=== PATIENT | male | born 1940 | race Caucasian/White ===

== ENCOUNTER 2018-08-11 00:15 | Inpatient (IN) ==
[2018-08-11 05:52] LABS: Basophils % 0.3 %; Eosinophils % 0.1 %; Hematocrit 45.4 % (37.5-50.1); Immature Granulocytes % 0.5 % (0-4); Lymphocytes # 0.8 K/mcL (0.6-4.6); Lymphocytes % 5.2 %; Mean Corpuscular Hemoglobin 27.3 pg (28.0-33.3); Mean Corpuscular Volume 82.7 fL (83.0-100.0); Mean Platelet Volume 9.6 fL (9.4-12.4); Monocytes # 0.9 K/mcL (0.0-1.3); Platelet Count 233 K/mcL (140-400); Red Blood Count 5.49 M/mcL (4.19-5.50); Red Cell Distribution Width 14.6 % (11.5-14.5); Segmented Neutrophils % 87.9 %; White Blood Count 14.7 K/mcL (4.3-11.1)
[2018-08-11 05:54] LABS: INR 1.1; Neutrophils # 12.9 K/mcL (1.6-8.9); Prothrombin Time 12.7 Seconds (9.4-12.1)
[2018-08-11 05:56] LABS: Activated Partial Thrombo Time 29.7 Seconds (26.0-36.0)
[2018-08-11 06:05] LABS: BUN/Creatinine Ratio 20 (6-26); Blood Urea Nitrogen 25 mg/dL (8-23); Carbon Dioxide 22 mEq/L (23-29); Chloride 100 mEq/L (98-107); Glucose 129 mg/dL (70-105); Osmolality,Calculated 282 (280-300); Sodium 133 mEq/L (136-145); eGFR For African Americans > 60 (> 60); eGFR For Non-African Americans 57 (> 60)
[2018-08-11] MEDS: Aspirin 81 MG TAB.CHEW PO SCH (08:57)
[2018-08-11] MEDS: Cholecalciferol (D-3) 1,000 UNIT (25MCG) TABLET PO SCH (08:57)
[2018-08-11] MEDS: *HR* Enoxaparin 40 MG/0.4 ML SYRINGE SQ SCH (10:08)
--- NOTE | 2018-08-11 11:08 | Internal Med History&Physical ---
Date of Encounter: 08/11/18 Time of Encounter: 10:59 Assessment and Plan (1) Acute right MCA stroke Current visit: Yes Status: Acute Patient continues to show effects of right CVA with left arm plegia and left leg paresis. Patient also showing severe left-sided neglect with questionable visual cut on the left eye. Patient's neurological exam somewhat limited, due to patient's dementia and being hard of hearing. Patient able to follow simple commands and noted to respond better to visual examples, which brings him to receptive aphasia versus hard of hearing. Patient participated in physical therapy and progressing well. Vital signs stable. We will continue with current plan of care and monitor closely. We will have speech therapy evaluate (2) Chronic kidney disease Current visit: Yes Status: Chronic No acute issues. Patient's most recent creatinine is at 1.25 with a when necessary of 25. We will continue patient on current medications. Qualifiers: Chronic kidney disease stage: unspecified stage Qualified Code(s): N18.9 - Chronic kidney disease, unspecified (3) Dysphagia Current visit: Yes Status: Acute Patient's speech appears to have cleared when exam is compared to previous exam from medical records from hospital. Patient being followed by speech therapy. We will continue with current plan of care Qualifiers: Dysphagia type: unspecified Qualified Code(s): R13.10 - Dysphagia, unspecified (4) Hypertension Current visit: No Status: Chronic Vital signs stable. We will continue with current medications Qualifiers: Hypertension type: essential hypertension Qualified Code(s): I10 - Essential (primary) hypertension (5) Dementia Current visit: No Status: Chronic Currently no issues or reported behaviors. Patient is interacting with staff and therapy well. Patient with difficulty following complex directions. We will continue with current plan of care. Qualifiers: Dementia type: unspecified type Dementia behavioral disturbance: with behavioral disturbance Qualified Code(s): F03.91 - Unspecified dementia with behavioral disturbance Internal Medicine - H&P: HPI Chief complaint: right MCA CVA Admitted From: Hospital to Hospital Transfer Plans for Post Hospital Care: Home History of present illness: Mr. Golden is a 77 year old male, who was transferred here from an [facility] hospital where he was treated for a right MCA infarct. Patient has experienced left sided weakness with LUE plegia and LLE paresis. Patient has also been experiencing left sided neglect and dysphasia. Patient also has very poor hearing, which with his dementia has limited his interview. Patient has been answering simple questions with yes/no answers. Information has been gathered from his medical records and his interview. Patient has a Hx of HTN, dementia and major depression. He has been transferred here for further rehab due to his paresis and generalized weakness. Past Med Surg Social Fam HX - Past Medical History Medical history: dementia, GERD, hypertension, TIA, other Additional medical history: Abdominal Aortic Aneurysm Psychiatric history: anxiety, depression - Past Surgical History Surgical History: appendectomy, cholecystectomy, colectomy, herniorrhaphy, orthopedic, other, other Additional surgical history: Left Ankle Fusion - Social History Smoking Status: Never smoker Smokeless Tobacco Status: No Alcohol use: none Drug use: none - Family History Daughter Hx Family Cardiac Disorders: Yes Internal Medicine - H&P: Meds Aspirin 81 mg PO DAILY 04/02/16 [History] Cholecalciferol (D-3) [Vitamin D] 5,000 unit PO DAILY 04/02/16 [History] Folic Acid 0.8 mg PO DAILY 04/02/16 [History] Sertraline [Zoloft] 50 mg PO DAILY 04/02/16 [History] Memantine [Namenda] 10 mg PO DAILY 05/23/17 [History] Lisinopril [Zestril] 20 mg PO DAILY #30 tablet 05/25/17 [Rx] amLODIPine [Norvasc] 10 mg PO DAILY #60 tablet 05/25/17 [Rx] Allergy/AdvReac Type Severity Reaction Status Date / Time No Known Allergies Allergy Verified 08/11/18 03:37 All Systems PM: A 10-system review of systems was performed and is negative for pertinent findings except as documented above in the HPI. - Constitutional Constitutional: as per HPI, no chills, no fever(s), no night sweats - EENT Eyes: as per HPI, no change in vision, no discharge, no pain, no photophobia Ears: as per HPI, no ear discharge, no ear pain, no tinnitus Nose, mouth and throat: as per HPI, no dysphagia, no nasal discharge, no neck p ain, no sore throat - Breasts Breasts: as per HPI - Cardiovascular Cardiovascular ROS IM: as per HPI, no chest pain, no diaphoresis, no dyspnea, no lightheadedness, no palpitations, no syncope - Respiratory Respiratory: as per HPI, no cough, no dyspnea, no wheezing, no excessive phlegm production - Gastrointestinal Gastrointestinal: as per HPI, no abdominal pain, no diarrhea, no hematemesis, no hematochezia, no melena, no nausea, no vomiting - Genitourinary Genitourinary ROS male: as per HPI - Musculoskeletal Musculoskeletal ROS IM: as per HPI, no numbness, no tingling - Integumentary Integumentary IM: as per HPI, no rash, no unusual bruising - Neurological Neurological ROS: as per HPI, no confusion, no convulsions, no focal weakness, no numbness, no tingling, no tremor(s) - Psychiatric Psychiatric: as per HPI - Hematologic/Lymphatic Hematologic/Lymphatic: no easy bruising - Constitutional Vitals: Temp Pulse Resp BP Pulse Ox 98.5 F 88 14 123/80 95 08/11/18 07:36 08/11/18 09:44 08/11/18 09:44 08/11/18 09:44 08/11/18 09:44 General appearance: Present: A&O X 3 - Head Head exam: Present: atraumatic, normocephalic - Eye Eye exam: Present: PERRL, conjuntiva pink, sclera anicteric Pupils: Present: PERRL - Neck Neck exam general surgery: Present: supple, trachea midline. Absent: lymphadenopathy - Respiratory Respiratory exam: Present: decreased breath sounds, CTAB. Absent: accessory muscle use, rales, rhonchi, wheezes - Cardiovascular Cardiovascular exam: Present: RRR, +S1, +S2. Absent: diastolic murmur, gallop, rubs, systolic murmur - GI/Abdominal GI/Abdominal exam: Present: normal bowel sounds, soft, no peritoneal signs. Absent: distended, tenderness - Extremities Exam Extremities exam: Present: warm, radial pulses palpable and symmetrical. Absent: calf tenderness, cyanotic, pedal edema - Neurological Exam Neurological exam: Present: CN II-XII intact, oriented X3, facial droop, speech deficit. Absent: pronater drift Additional comments: Patient continues with left upper extremity plegia and left lower extremity weakness with a muscle strength at 4/5. Difficult to assess patient due to him being very hard of hearing and with his dementia he shows poor effort on exam. Slight left facial droop. Patient has been answering simple questions with yes/no answers, during which his speech is clear. Noted severe left neglect with questionable visual acuity and possible visual cut with left eye. - Skin Skin exam: Present: dry, intact Internal Med - H&P Results - Labs CBC & Chem 7: 08/11/18 05:35 08/11/18 05:35 Labs: Short CBC 08/11/18 Range/Units 05:35 WBC 14.7 H (4.3-11.1) K/mcL Hgb 15.0 (12.9-16.9) g/dL Hct 45.4 (37.5-50.1) % Plt Count 233 (140-400) K/mcL Neutrophils # 12.9 H (1.6-8.9) K/mcL BMP 08/11/18 05:35 Sodium 133 L Potassium 4.0 Chloride 100 Carbon Dioxide 22 L BUN 25 H Creatinine 1.23 Glucose 129 H Calcium 9.0
[2018-08-12] MEDS: *HR* Enoxaparin 40 MG/0.4 ML SYRINGE SQ SCH (05:27)
[2018-08-12] MEDS: Cholecalciferol (D-3) 1,000 UNIT (25MCG) TABLET PO SCH (09:41)
[2018-08-12] MEDS: Aspirin 81 MG TAB.CHEW PO SCH (09:41)
--- NOTE | 2018-08-12 15:41 | Internal Med Progress Note ---
Date of Encounter: 08/12/18 Time of Encounter: 15:38 - Assessment and plan (1) Hypertension Current Visit: Yes Status: Chronic Assessment and plan: Controlled with current medication. Monitor blood pressure. Qualifiers: Hypertension type: essential hypertension Qualified Code(s): I10 - Essential (primary) hypertension (2) Dementia Current Visit: Yes Status: Chronic Assessment and plan: Progressive disease. Continue supportive care. Increased risk for follows, dehydration, malnutrition, skin breakdown and pneumonia Qualifiers: Dementia type: unspecified type Dementia behavioral disturbance: with behavioral disturbance Qualified Code(s): F03.91 - Unspecified dementia with behavioral disturbance (3) Acute right MCA stroke Current Visit: Yes Status: Acute Assessment and plan: Continue PT and OT. Will follow progress. No new neurological deficits at this time. Is very lethargic today. Did participate with therapy this morning. Follow up with neurology as scheduled. Has left hemiparesis, visual cut, dysphagia and agnosia, and receptive aphasia. (4) Chronic kidney disease Current Visit: Yes Status: Chronic Assessment and plan: Stable. Follow labs. Avoid nephrotoxic agents. Qualifiers: Chronic kidney disease stage: unspecified stage Qualified Code(s): N18.9 - Chronic kidney disease, unspecified (5) Dysphagia Current Visit: Yes Status: Acute Assessment and plan: Continue mechanical altered diet with thin liquids. Up for meals with supervision. Monitor for pocketing and left cheek. Encourage to chew on right side. Oral care after all meals. Continue speech therapy. Will follow progress. Qualifiers: Dysphagia type: unspecified Qualified Code(s): R13.10 - Dysphagia, unspecified - Time Spent With Patient less than 15 minutes - Constitutional Vitals: Temp Pulse Resp BP Pulse Ox 97.8 F 70 14 151/79 97 08/12/18 06:00 08/12/18 06:00 08/12/18 06:00 08/12/18 06:00 08/12/18 06:00 General appearance: Present: cooperative, A&O X 3, no acute distress, answers questions appropriately Exam: left facial droop, [place], lethargic. - Head Head exam: Present: atraumatic, normocephalic - Eye Eye exam: Present: PERRL, conjuntiva pink, sclera anicteric Pupils: Present: PERRL - Neck Neck exam general surgery: Present: supple, trachea midline. Absent: lymphadenopathy - Respiratory Respiratory exam: Present: CTAB. Absent: accessory muscle use, rales, rhonchi, wheezes - Cardiovascular Cardiovascular exam: Present: RRR, +S1, +S2. Absent: diastolic murmur, gallop, rubs, systolic murmur Additional comments: + murmur 3/6 - GI/Abdominal GI/Abdominal exam: Present: normal bowel sounds, soft, no peritoneal signs. Absent: distended, tenderness - Extremities Exam Extremities exam: Present: warm, radial pulses palpable and symmetrical. Absent: calf tenderness, cyanotic, pedal edema Additional comments: left sided hemiplegia - Neurological Exam Neurological exam: Present: CN II-XII intact, oriented X3, no focal deficits. Absent: pronater drift, facial droop, speech deficit - Skin Skin exam: Present: dry, intact Internal Medicine: Result - Labs CBC & Chem 7: 08/11/18 05:35 08/11/18 05:35 - ABG Interpretation ABG results: PT/INR, D-dimer PT 12.7 Seconds (9.4-12.1) H 08/11/18 05:35 Consult Discharge Plan - Plan Referrals: Margo Oliveira, ORDER BUILDER LOADER [Primary Care Provider] -
[2018-08-12 17:21] LABS: Bilirubin,Urine Moderate (Negative); Blood,Urine Trace-lysed (Negative); Clarity,Urine Clear (Clear); Color,Urine Amber (Yellow); Glucose,Urine (UA) 100 mg/dL (Normal); Ketones,Urine 15 mg/dL (Negative); Leukocyte Esterase,Urine Negative (Negative); Nitrite,Urine Negative (Negative); Protein,Urine 30 mg/dL (Neg-Trace); Specific Gravity,Urine >= 1.030 (1.010-1.025)
[2018-08-12 17:26] LABS: Mucus,Urine Few (Few)
[2018-08-12 17:27] LABS: Amorphous Sediment,Urine Few (Few); Bacteria,Urine Few per hpf (None-Few); Squamous Epithelial Cell,Urine Few per lpf (None-Few); WBC,Urine 0-3 per hpf (0-3)
[2018-08-12] MEDS: Acetaminophen 325 MG TABLET PO PRN (23:18)
[2018-08-13] MEDS: *HR* Enoxaparin 40 MG/0.4 ML SYRINGE SQ SCH (05:08)
[2018-08-13] MEDS: Cholecalciferol (D-3) 1,000 UNIT (25MCG) TABLET PO SCH (09:29)
[2018-08-13] MEDS: Aspirin 81 MG TAB.CHEW PO SCH (09:29)
--- NOTE | 2018-08-13 10:15 | Internal Med Progress Note ---
Date of Encounter: 08/13/18 Time of Encounter: 09:15 - Assessment and plan (1) Acute right MCA stroke Current Visit: Yes Status: Acute Assessment and plan: Therapy persists and we will continue as planned. Patient seems to be doing better as he is more alert than before. Will follow. (2) Dementia Current Visit: Yes Status: Chronic Assessment and plan: It is my suspicion that this is worse than previously reported by family. This could be related to post stroke depression and/or fatigue from history. Qualifiers: Dementia type: unspecified type Dementia behavioral disturbance: with behavioral disturbance Qualified Code(s): F03.91 - Unspecified dementia with behavioral disturbance (3) Hypertension Current Visit: Yes Status: Chronic Assessment and plan: Clinically stable. Qualifiers: Hypertension type: essential hypertension Qualified Code(s): I10 - Essential (primary) hypertension (4) SIMONA (acute kidney injury) Current Visit: No Status: Acute (5) Acute on chronic renal failure Current Visit: No Status: Acute Assessment and plan: Apparently stable. Today's lab is pending at the time of this dictation. Qualifiers: Acute renal failure type: unspecified Chronic kidney disease stage: stage 2 (mild) Qualified Code(s): N17.9 - Acute kidney failure, unspecified; N18.2 - Chronic kidney disease, stage 2 (mild); N18.2 - Chronic kidney disease, stage 2 (mild) (6) Dysphagia Current Visit: Yes Status: Acute Assessment and plan: Speech therapy evaluating and managing. Apparently can tolerate thin liquids. Still noted to be "pocketing" yesterday. Qualifiers: Dysphagia type: unspecified Qualified Code(s): R13.10 - Dysphagia, unspecified (7) MDD (major depressive disorder) Current Visit: No Status: Acute Assessment and plan: Uncertain as to whether this is worsened by his stroke. Will follow. Qualifiers: Major depression recurrence: recurrent Active/Remission status: currently active Major depression episode severity: unspecified Qualified Code(s): F33.9 - Major depressive disorder, recurrent, unspecified - Subjective Interval history: Patient is much more alert and without complaints. He states that he moved his bowels. He still has hearing issues and issues of recall that suggest dementia. Patient has no complaint of chest discomfort, dyspnea, orthopnea, palpitations, nausea or vomiting, constipation or diarrhea, other changes in bowel habits, difficulty with urination, rash or itching, or other new complaints, except as mentioned above. Review of systems is otherwise negative. I discussed management of her care with nursing staff. - Constitutional Vitals: Temp Pulse Resp BP Pulse Ox 97.8 F 68 14 130/84 94 08/13/18 07:00 08/13/18 07:00 08/13/18 07:00 08/13/18 07:00 08/13/18 07:00 Exam: Examination: (Except as mentioned above): General: In no apparent distress. Alert and oriented 3. Nondiaphoretic. Head: Atraumatic and normocephalic. Respiratory: No use of accessory muscles. Lungs are clear throughout. Normal airflow. Cardiovascular: Regular rate and rhythm without murmur appreciated. Abdomen: Bowel sounds are normal. No hepatosplenomegaly mass or tenderness appreciated. Obese and therefore difficult to palpate deeply. Extremities: No cyanosis clubbing or edema. Skin: Warm and non-diaphoretic with no new lesions noted. Neurological: Patient with marked left chance-neglect. This includes left visual field cut. Left upper extremity weakness is 3/5. Left lower extremity weaknesses 4 minus/5. Internal Medicine: Result - Labs CBC & Chem 7: 08/11/18 05:35 08/11/18 05:35 Labs: Urine 08/12/18 Range/Units Unknown Urine Color [place] A (Yellow) Urine Clarity Clear (Clear) Urine pH 5.0 (5.0-8.0) pH Units Ur Specific [place] >= 1.030 H (1.010-1.025) Urine Protein 30 H (Neg-Trace) mg/dL Urine Glucose (UA) 100 H (Normal) mg/dL - ABG Interpretation ABG results: PT/INR, D-dimer PT 12.7 Seconds (9.4-12.1) H 08/11/18 05:35 Consult Discharge Plan - Plan Referrals: Margo Oliveira, PRODUCTION ENGINEER [Primary Care Provider] -
[2018-08-13 11:49] LABS: Basophils # 0.1 K/mcL (0.0-0.2); Basophils % 0.7 %; Eosinophils # 0.2 K/mcL (0.0-0.6); Eosinophils % 2.3 %; Hematocrit 44.5 % (37.5-50.1); Hemoglobin 14.5 g/dL (12.9-16.9); Immature Granulocytes % 0.5 % (0-4); Lymphocytes # 0.9 K/mcL (0.6-4.6); Lymphocytes % 10.2 %; Mean Corpuscular HGB Conc 32.6 g/dL (31.6-35.5); Mean Corpuscular Hemoglobin 27.5 pg (28.0-33.3); Mean Corpuscular Volume 84.4 fL (83.0-100.0); Mean Platelet Volume 9.9 fL (9.4-12.4); Monocytes # 0.7 K/mcL (0.0-1.3); Neutrophils # 6.5 K/mcL (1.6-8.9); Platelet Count 209 K/mcL (140-400); Red Blood Count 5.27 M/mcL (4.19-5.50); Red Cell Distribution Width 14.8 % (11.5-14.5); Segmented Neutrophils % 78.3 %; White Blood Count 8.4 K/mcL (4.3-11.1)
[2018-08-13] MEDS: 0.9 % Sodium Chloride 1,000 ML IVC SCH (12:38)
--- NOTE | 2018-08-13 13:30 | Event Note ---
Date of Encounter: 08/13/18 Time of Encounter: 13:25 Patient with c/o chest pain following PT session. Patient with minimal verbal response during questions and appears drowsy, as he is easily fatiqued during therapy. Upon questioning, he states that his pain has resolved. Family present and states that he has had episodes of similar chest pain at home, during which his pain is present for only a short time and resolves. Lungs are CTA. HR is reg at 80"s. Loud systolic murmur heard. VS obtained show a SBP 95. EKG shows no eschemic changes. Will start patient on IVF for gentle hydration. Will obtain serial troponins. d/w DR. Valdez.
[2018-08-13 13:34] LABS: Alanine Aminotransferase 25 Units/L (7-52); Albumin 3.7 g/dL (3.5-5.7); Albumin/Globulin Ratio 1.1 (1.1-2.2); Alkaline Phosphatase 78 Units/L (34-104); Aspartate Amino Transferase 33 Units/L (13-39); BUN/Creatinine Ratio 25 (6-26); Bilirubin,Total 2.4 mg/dL (0.3-1.0); Blood Urea Nitrogen 32 mg/dL (8-23); Calcium 9.3 mg/dL (8.6-10.3); Carbon Dioxide 14 mEq/L (23-29); Chloride 101 mEq/L (98-107); Globulin 3.3 g/dL (2.4-3.5); Glucose 131 mg/dL (70-105); Osmolality,Calculated 285 (280-300); Sodium 133 mEq/L (136-145); eGFR For African Americans > 60 (> 60); eGFR For Non-African Americans 55 (> 60)
--- NOTE | 2018-08-13 15:47 | Electrocardiograph Report ---
[address] [address] Test Date: 2018-08-13 Pat Name: Sree Golden Department: 2001 Room: 105 Gender: M Camp Assistant: : 1940 Requested By: Sree Dutton Order Number: [id number] Reading MD: Denae Gomes Measurements Intervals [place] Rate: 76 P: 43 PA: 178 QRS: 2 QRSD: 100 T: 21 QT: 406 QTc: 437 Interpretive Statements SINUS RHYTHM Electronically Signed On 08-13-2018 15:46:29 EDT by Denae Gomes
[2018-08-14] MEDS: 0.9 % Sodium Chloride 1,000 ML IVC SCH ×2 (02:31→16:44)
[2018-08-14] MEDS: *HR* Enoxaparin 40 MG/0.4 ML SYRINGE SQ SCH (05:20)
[2018-08-14 09:05] LABS: Alanine Aminotransferase 27 Units/L (7-52); Albumin 3.2 g/dL (3.5-5.7); Albumin/Globulin Ratio 1.2 (1.1-2.2); Alkaline Phosphatase 65 Units/L (34-104); Aspartate Amino Transferase 28 Units/L (13-39); BUN/Creatinine Ratio 27 (6-26); Bilirubin,Total 2.1 mg/dL (0.3-1.0); Blood Urea Nitrogen 24 mg/dL (8-23); Calcium 8.3 mg/dL (8.6-10.3); Carbon Dioxide 23 mEq/L (23-29); Chloride 104 mEq/L (98-107); Globulin 2.7 g/dL (2.4-3.5); Glucose 108 mg/dL (70-105); Osmolality,Calculated 283 (280-300); Potassium 3.6 mEq/L (3.5-5.1); Sodium 134 mEq/L (136-145); Total Protein 5.9 g/dL (6.4-8.9); eGFR For African Americans > 60 (> 60); eGFR For Non-African Americans > 60 (> 60)
--- NOTE | 2018-08-14 09:48 | Internal Med Progress Note ---
Date of Encounter: 08/14/18 Time of Encounter: 08:15 - Assessment and plan (1) Acute right MCA stroke Current Visit: Yes Status: Acute Assessment and plan: We will continue therapies as planned. Apparently, he is improving in terms of arousal. (2) Dementia Current Visit: Yes Status: Chronic Assessment and plan: This seems better, today. Perhaps his fatigue was making his symptoms/findings worse. Qualifiers: Dementia type: unspecified type Dementia behavioral disturbance: with behavioral disturbance Qualified Code(s): F03.91 - Unspecified dementia with behavioral disturbance (3) Hypertension Current Visit: Yes Status: Chronic Assessment and plan: Clinically controlled. Qualifiers: Hypertension type: essential hypertension Qualified Code(s): I10 - Essential (primary) hypertension (4) SIMONA (acute kidney injury) Current Visit: No Status: Acute Assessment and plan: Stable creatinine. (5) Acute on chronic renal failure Current Visit: No Status: Acute Assessment and plan: We will follow. Qualifiers: Acute renal failure type: unspecified Chronic kidney disease stage: stage 2 (mild) Qualified Code(s): N17.9 - Acute kidney failure, unspecified; N18.2 - Chronic kidney disease, stage 2 (mild); N18.2 - Chronic kidney disease, stage 2 (mild) (6) Dysphagia Current Visit: Yes Status: Acute Assessment and plan: Management as per speech. Qualifiers: Dysphagia type: unspecified Qualified Code(s): R13.10 - Dysphagia, unspecified (7) MDD (major depressive disorder) Current Visit: No Status: Acute Assessment and plan: No change. Qualifiers: Major depression recurrence: recurrent Active/Remission status: currently active Major depression episode severity: unspecified Qualified Code(s): F33.9 - Major depressive disorder, recurrent, unspecified (8) Metabolic acidosis Current Visit: Yes Status: Acute Assessment and plan: This was apparently transient as repeat testing this morning indicates normalcy. (9) Conjunctivitis Current Visit: Yes Status: Acute Assessment and plan: We will apply sulfonamide drops for a few days and follow. No trauma is known but given the patient's sedentary status for the last several days, this may have been incidental. Qualifiers: Conjunctivitis type: acute Acute conjunctivitis type: unspecified Laterality: right Qualified Code(s): H10.31 - Unspecified acute conjunctivitis, right eye - Subjective Interval history: The patient is without complaint. We discussed his acid level in his blood in the need for repeat blood work. He denies other problems. Patient has no complaint of chest discomfort, dyspnea, orthopnea, palpitations, nausea or vomiting, constipation or diarrhea, other changes in bowel habits, difficulty with urination, rash or itching, or other new complaints, except as mentioned above. Review of systems is otherwise negative. I discussed management of her care with nursing staff. - Constitutional Vitals: Temp Pulse Resp BP Pulse Ox 98.5 F 65 16 179/94 97 08/14/18 07:54 08/14/18 07:54 08/14/18 07:54 08/14/18 07:54 08/14/18 07:54 Exam: Examination: (Except as mentioned above): General: In no apparent distress. Alert and oriented 3. He is more alert than any previous evaluation. Nondiaphoretic. Head: Atraumatic and normocephalic. Right conjunctiva is markedly injected. He denies itching or burning. Respiratory: No use of accessory muscles. Lungs are clear throughout. Normal airflow. Cardiovascular: Regular rate and rhythm without change in his baseline murmur appreciated. Abdomen: Bowel sounds are normal. No hepatosplenomegaly mass or tenderness appreciated. Obese and therefore difficult to palpate deeply. Extremities: No cyanosis clubbing or edema. Skin: Warm and non-diaphoretic with no new lesions noted. Neurologically, he still has left facial droop, left chance-neglect, left upper and lower extremity dense paralysis. I find no motion, today. Internal Medicine: Result - Labs CBC & Chem 7: 08/13/18 11:40 08/14/18 08:40 Labs: Short CBC 08/13/18 Range/Units 11:40 WBC 8.4 (4.3-11.1) K/mcL Hgb 14.5 (12.9-16.9) g/dL Hct 44.5 (37.5-50.1) % Plt Count 209 (140-400) K/mcL Neutrophils # 6.5 (1.6-8.9) K/mcL BMP 08/13/18 08/14/18 11:40 08:40 Sodium 133 L 134 L Potassium 4.0 3.6 Chloride 101 104 Carbon Dioxide 14 L 23 BUN 32 H 24 H Creatinine 1.26 0.88 Glucose 131 H 108 H Calcium 9.3 8.3 L Cardiac Enzymes 08/13/18 Range/Units 11:40 Troponin I < 0.03 (< 0.04) ng/mL Liver Function 08/13/18 08/14/18 Range/Units 11:40 08:40 Total Bilirubin 2.4 H 2.1 H (0.3-1.0) mg/dL AST 33 28 (13-39) Units/L ALT 25 27 (7-52) Units/L Alkaline Phosphatase 78 65 (34-104) Units/L Albumin 3.7 3.2 L (3.5-5.7) g/dL - ABG Interpretation ABG results: PT/INR, D-dimer PT 12.7 Seconds (9.4-12.1) H 08/11/18 05:35 Consult Discharge Plan - Plan Referrals: Margo Oliveira, STOCK UNLOADER [Primary Care Provider] -
[2018-08-14] MEDS: Cholecalciferol (D-3) 1,000 UNIT (25MCG) TABLET PO SCH (11:18)
[2018-08-14] MEDS: Aspirin 81 MG TAB.CHEW PO SCH (11:19)
[2018-08-14] MEDS: Sulfacetamide Sodium 10% OPTH 15 ML BOTTLE RIGHT EYE SCH ×3 (15:45→19:58)
[2018-08-14] MEDS: cloNIDine HCl 0.1 MG TABLET PO PRN (23:08)
[2018-08-15] MEDS: 0.9 % Sodium Chloride 1,000 ML IVC SCH ×2 (05:30→17:23)
[2018-08-15] MEDS: *HR* Enoxaparin 40 MG/0.4 ML SYRINGE SQ SCH (05:31)
[2018-08-15] MEDS: Sulfacetamide Sodium 10% OPTH 15 ML BOTTLE RIGHT EYE SCH ×4 (09:17→19:24)
[2018-08-15] MEDS: Aspirin 81 MG TAB.CHEW PO SCH (09:17)
[2018-08-15] MEDS: Cholecalciferol (D-3) 1,000 UNIT (25MCG) TABLET PO SCH (09:17)
--- NOTE | 2018-08-15 13:44 | Internal Med Progress Note ---
Date of Encounter: 08/15/18 Time of Encounter: 13:44 - Assessment and plan (1) Acute right MCA stroke Current Visit: Yes Status: Acute Assessment and plan: We will continue therapies as planned. His alertness and interaction is markedly improving. (2) Dementia Current Visit: Yes Status: Chronic Assessment and plan: Apparently, at baseline. Qualifiers: Dementia type: unspecified type Dementia behavioral disturbance: with behavioral disturbance Qualified Code(s): F03.91 - Unspecified dementia with behavioral disturbance (3) Hypertension Current Visit: Yes Status: Chronic Assessment and plan: Marginal control without need for clonidine, today. Qualifiers: Hypertension type: essential hypertension Qualified Code(s): I10 - Essential (primary) hypertension (4) SIMONA (acute kidney injury) Current Visit: No Status: Acute Assessment and plan: Stable and will follow. 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 Qualifiers: Major depression recurrence: recurrent Active/Remission status: currently active Major depression episode severity: unspecified Qualified Code(s): F33.9 - Major depressive disorder, recurrent, unspecified (7) Metabolic acidosis Current Visit: Yes Status: Acute Assessment and plan: Apparently, resolved. Will follow. (8) Conjunctivitis Current Visit: Yes Status: Acute Assessment and plan: Clinically, this is improved. Will reassess again, tomorrow. There is less erythema at the right eye, today. Qualifiers: Conjunctivitis type: acute Acute conjunctivitis type: unspecified Laterality: right Qualified Code(s): H10.31 - Unspecified acute conjunctivitis, right eye - Subjective Interval history: Patient is interviewed and examined front of her full care to celebrate his 78th birthday. Patient has no complaints but admits that her "wearing out." Patient has no complaint of chest discomfort, dyspnea, orthopnea, palpitations, nausea or vomiting, constipation or diarrhea, other changes in bowel habits, difficulty with urination, rash or itching, or other new complaints, except as mentioned above. Review of systems is otherwise negative. I discussed management of her care with nursing staff. - Constitutional Vitals: Temp Pulse Resp BP Pulse Ox 98.2 F 68 15 163/93 93 08/15/18 07:25 08/15/18 07:25 08/15/18 07:25 08/15/18 07:25 08/15/18 07:25 Exam: Examination: (Except as mentioned above): General: In no apparent distress. Alert and oriented 3. Nondiaphoretic. Head: Atraumatic and normocephalic. Respiratory: No use of accessory muscles. Lungs are clear throughout. Normal airflow. Cardiovascular: Regular rate and rhythm without murmur appreciated. Abdomen: Bowel sounds are normal. No hepatosplenomegaly mass or tenderness appreciated. Obese and therefore difficult to palpate deeply. Patient is examined upright in chair and this also limits exam. Extremities: No cyanosis clubbing or edema. This is a gross visual exam and his legs are not examined because he is in front of her full of people. Neurological: Patient still with marked left chance-neglect, left dense hemiparesis. Skin: Warm and non-diaphoretic with no new lesions noted. Internal Medicine: Result - Labs CBC & Chem 7: 08/13/18 11:40 08/14/18 08:40 - ABG Interpretation ABG results: PT/INR, D-dimer PT 12.7 Seconds (9.4-12.1) H 08/11/18 05:35 Consult Discharge Plan - Plan Referrals: Margo Oliveira, TRANSMISSION MECHANIC [Primary Care Provider] -
[2018-08-15] MEDS: Acetaminophen 325 MG TABLET PO PRN (22:03)
[2018-08-16] MEDS: Acetaminophen 325 MG TABLET PO PRN (03:56)
[2018-08-16] MEDS: *HR* Enoxaparin 40 MG/0.4 ML SYRINGE SQ SCH (04:31)
[2018-08-16] MEDS: 0.9 % Sodium Chloride 1,000 ML IVC SCH (05:14)
[2018-08-16 06:34] LABS: Basophils % 0.5 %; Eosinophils # 0.3 K/mcL (0.0-0.6); Eosinophils % 4.6 %; Hematocrit 36.5 % (37.5-50.1); Hemoglobin 11.9 g/dL (12.9-16.9); Immature Granulocytes % 0.3 % (0-4); Lymphocytes # 0.9 K/mcL (0.6-4.6); Lymphocytes % 13.7 %; Mean Corpuscular HGB Conc 32.6 g/dL (31.6-35.5); Mean Corpuscular Hemoglobin 27.2 pg (28.0-33.3); Mean Corpuscular Volume 83.5 fL (83.0-100.0); Mean Platelet Volume 10.2 fL (9.4-12.4); Monocytes # 0.5 K/mcL (0.0-1.3); Monocytes % 7.2 %; Neutrophils # 4.7 K/mcL (1.6-8.9); Platelet Count 163 K/mcL (140-400); Red Blood Count 4.37 M/mcL (4.19-5.50); Red Cell Distribution Width 14.6 % (11.5-14.5); Segmented Neutrophils % 73.7 %; White Blood Count 6.4 K/mcL (4.3-11.1)
[2018-08-16] MEDS: Cholecalciferol (D-3) 1,000 UNIT (25MCG) TABLET PO SCH (08:01)
[2018-08-16] MEDS: Aspirin 81 MG TAB.CHEW PO SCH (08:02)
[2018-08-16] MEDS: Sulfacetamide Sodium 10% OPTH 15 ML BOTTLE RIGHT EYE SCH ×4 (08:04→20:26)
--- NOTE | 2018-08-16 11:55 | Internal Med Progress Note ---
Date of Encounter: 08/16/18 Time of Encounter: 11:53 - Assessment and plan (1) Hypertension Current Visit: Yes Status: Chronic Assessment and plan: Controlled with current medication. Monitor blood pressure. Qualifiers: Hypertension type: essential hypertension Qualified Code(s): I10 - Essential (primary) hypertension (2) Dementia Current Visit: Yes Status: Chronic Assessment and plan: Progressive disease. Continue supportive care. Increased risk for follows, dehydration, malnutrition, skin breakdown and pneumonia Qualifiers: Dementia type: unspecified type Dementia behavioral disturbance: with behavioral disturbance Qualified Code(s): F03.91 - Unspecified dementia with behavioral disturbance (3) Acute right MCA stroke Current Visit: Yes Status: Acute Assessment and plan: Continue PT and OT and ST. Will follow progress. No new neurological deficits at this time. Follow up with neurology as scheduled. Has left hemiparesis, visual cut, dysphagia and agnosia, and receptive aphasia. (4) Chronic kidney disease Current Visit: Yes Status: Chronic Assessment and plan: Stable. Follow labs. Avoid nephrotoxic agents. Qualifiers: Chronic kidney disease stage: unspecified stage Qualified Code(s): N18.9 - Chronic kidney disease, unspecified (5) Dysphagia Current Visit: Yes Status: Acute Assessment and plan: Continue mechanical altered diet with thin liquids. Up for meals with supervision. Monitor for pocketing and left cheek. Encourage to chew on right side. Oral care after all meals. Continue speech therapy. Will follow progress. Qualifiers: Dysphagia type: unspecified Qualified Code(s): R13.10 - Dysphagia, unspecified - Time Spent With Patient 25 - 35 minutes - Subjective Interval history: Patient participated well with therapy today. Fatigues easily. Currently resting in bed. Denies any complaints at this time. Max assist times 2 to transfer from bed to wheelchair. Maintaining appetite. Being treated for conjunctivitis to right eye. - Constitutional Vitals: Temp Pulse Resp BP Pulse Ox 98.0 F 68 16 166/96 94 08/16/18 08:03 08/16/18 08:03 08/16/18 08:03 08/16/18 08:03 08/16/18 08:03 General appearance: Present: cooperative, A&O X 3, pleasant, no acute distress, answers questions appropriately Exam: very - Head Head exam: Present: atraumatic, normocephalic - Eye Eye exam: Present: PERRL, conjuntiva pink, sclera anicteric Pupils: Present: PERRL - Neck Neck exam general surgery: Present: supple, trachea midline. Absent: lymphadenopathy - Respiratory Respiratory exam: Present: CTAB. Absent: accessory muscle use, rales, rhonchi, wheezes - Cardiovascular Cardiovascular exam: Present: RRR, +S1, +S2. Absent: diastolic murmur, gallop, rubs, systolic murmur - GI/Abdominal GI/Abdominal exam: Present: normal bowel sounds, soft, no peritoneal signs. Absent: distended, tenderness - Extremities Exam Extremities exam: Present: warm, radial pulses palpable and symmetrical. Absent: calf tenderness, cyanotic, pedal edema Additional comments: left hemiplegia - Neurological Exam Neurological exam: Present: CN II-XII intact, oriented X3, no focal deficits. Absent: pronater drift, facial droop, speech deficit - Skin Skin exam: Present: dry, intact Internal Medicine: Result - Labs CBC & Chem 7: 08/16/18 06:24 08/14/18 08:40 Labs: Short CBC 08/16/18 Range/Units 06:24 WBC 6.4 (4.3-11.1) K/mcL Hgb 11.9 L D (12.9-16.9) g/dL Hct 36.5 L (37.5-50.1) % Plt Count 163 (140-400) K/mcL Neutrophils # 4.7 (1.6-8.9) K/mcL - ABG Interpretation ABG results: PT/INR, D-dimer PT 12.7 Seconds (9.4-12.1) H 08/11/18 05:35 Consult Discharge Plan - Plan Referrals: Margo Oliveira, ACID LOADER [Primary Care Provider] -
[2018-08-17] MEDS: *HR* Enoxaparin 40 MG/0.4 ML SYRINGE SQ SCH (04:48)
[2018-08-17] MEDS: Aspirin 81 MG TAB.CHEW PO SCH (07:51)
[2018-08-17] MEDS: Cholecalciferol (D-3) 1,000 UNIT (25MCG) TABLET PO SCH (07:51)
[2018-08-17] MEDS: Sulfacetamide Sodium 10% OPTH 15 ML BOTTLE RIGHT EYE SCH ×4 (08:00→19:45)
--- NOTE | 2018-08-17 09:10 | Internal Med Progress Note ---
Date of Encounter: 08/17/18 Time of Encounter: 09:08 - Assessment and plan (1) Acute right MCA stroke Current Visit: Yes Status: Acute Assessment and plan: Continue PT and OT and ST. Will follow progress. No new neurological deficits at this time. Follow up with neurology as scheduled. Has left hemiparesis, visual cut, dysphagia and agnosia, and receptive aphasia. (2) Hypertension Current Visit: Yes Status: Chronic Assessment and plan: Controlled with current medication. Monitor blood pressure. Qualifiers: Hypertension type: essential hypertension Qualified Code(s): I10 - Essential (primary) hypertension (3) Dementia Current Visit: Yes Status: Chronic Assessment and plan: Progressive disease. Continue supportive care. Increased risk for follows, dehydration, malnutrition, skin breakdown and pneumonia Qualifiers: Dementia type: unspecified type Dementia behavioral disturbance: with behavioral disturbance Qualified Code(s): F03.91 - Unspecified dementia with behavioral disturbance (4) Chronic kidney disease Current Visit: Yes Status: Chronic Assessment and plan: Stable. Follow labs. Avoid nephrotoxic agents. Qualifiers: Chronic kidney disease stage: unspecified stage Qualified Code(s): N18.9 - Chronic kidney disease, unspecified (5) Dysphagia Current Visit: Yes Status: Acute Assessment and plan: Continue mechanical altered diet with thin liquids. Up for meals with supervision. Monitor for pocketing and left cheek. Encourage to chew on right side. Oral care after all meals. Continue speech therapy. Will follow progress. Qualifiers: Dysphagia type: unspecified Qualified Code(s): R13.10 - Dysphagia, unspecified - Time Spent With Patient less than 15 minutes - Subjective Interval history: Participating with therapy. Continues to make very slow improvement. Fatigues easily. Currently resting in bed. Denies any complaints at this time. Max assist times 2 to transfer from bed to wheelchair. Maintaining appetite. Being treated for conjunctivitis to right eye. Was able to feed self breakfast with encouragement. Continues to pocket food on left side. No new neurological deficits at this time. - Constitutional Vitals: Temp Pulse Resp BP Pulse Ox 97.6 F 93 16 170/93 96 08/17/18 07:00 08/17/18 07:00 08/17/18 07:00 08/17/18 07:00 08/17/18 07:00 General appearance: Present: cooperative, A&O X 3, pleasant, no acute distress, answers questions appropriately Exam: Left facial droop - Head Head exam: Present: atraumatic, normocephalic - Eye Eye exam: Present: PERRL, conjuntiva pink, sclera anicteric Pupils: Present: PERRL Additional comments: Right eye Conjunctiva injected. No drainage or matting of eyelashes. - Neck Neck exam general surgery: Present: supple, trachea midline. Absent: lymphadenopathy - Respiratory Respiratory exam: Present: CTAB. Absent: accessory muscle use, rales, rhonchi, wheezes - Cardiovascular Cardiovascular exam: Present: RRR, +S1, +S2. Absent: diastolic murmur, gallop, rubs, systolic murmur - GI/Abdominal GI/Abdominal exam: Present: normal bowel sounds, soft, no peritoneal signs. Absent: distended, tenderness - Extremities Exam Extremities exam: Present: warm, radial pulses palpable and symmetrical. Absent: calf tenderness, cyanotic, pedal edema Additional comments: Left hemiplegia - Neurological Exam Neurological exam: Present: CN II-XII intact, oriented X3, no focal deficits. Absent: pronater drift, facial droop, speech deficit - Skin Skin exam: Present: dry, intact Internal Medicine: Result - Labs CBC & Chem 7: 08/16/18 06:24 08/14/18 08:40 - ABG Interpretation ABG results: PT/INR, D-dimer PT 12.7 Seconds (9.4-12.1) H 08/11/18 05:35 Consult Discharge Plan - Plan Referrals: Margo Oliveira, FLOTATION TENDER [Primary Care Provider] -
[2018-08-17 12:06] LABS: Basophils # 0.1 K/mcL (0.0-0.2); Basophils % 0.4 %; Eosinophils # 0.1 K/mcL (0.0-0.6); Eosinophils % 0.7 %; Hematocrit 41.1 % (37.5-50.1); Immature Granulocytes % 0.5 % (0-4); Lymphocytes # 0.7 K/mcL (0.6-4.6); Lymphocytes % 5.6 %; Mean Corpuscular HGB Conc 33.8 g/dL (31.6-35.5); Mean Corpuscular Hemoglobin 27.7 pg (28.0-33.3); Mean Corpuscular Volume 81.9 fL (83.0-100.0); Mean Platelet Volume 9.8 fL (9.4-12.4); Monocytes % 6.8 %; Neutrophils # 10.7 K/mcL (1.6-8.9); Platelet Count 223 K/mcL (140-400); Red Blood Count 5.02 M/mcL (4.19-5.50); Red Cell Distribution Width 14.8 % (11.5-14.5); White Blood Count 12.4 K/mcL (4.3-11.1)
[2018-08-17 12:13] LABS: Monocytes # 0.8 K/mcL (0.0-1.3)
[2018-08-17 12:14] LABS: Hemoglobin 13.9 g/dL (12.9-16.9)
[2018-08-17 12:20] LABS: BUN/Creatinine Ratio 14 (6-26); Blood Urea Nitrogen 16 mg/dL (8-23); Carbon Dioxide 24 mEq/L (23-29); Chloride 101 mEq/L (98-107); Glucose 138 mg/dL (70-105); Osmolality,Calculated 281 (280-300); Potassium 3.6 mEq/L (3.5-5.1); Sodium 134 mEq/L (136-145); eGFR For African Americans > 60 (> 60); eGFR For Non-African Americans 59 (> 60)
[2018-08-17 12:25] LABS: Troponin I < 0.03 ng/mL (< 0.04)
--- NOTE | 2018-08-17 14:59 | Electrocardiograph Report ---
[place] [id number] Test Date: 2018-08-17 Pat Name: Sree Golden Department: 2001 Room: 104 Gender: M Relocation Coordinator: : 1940 Requested By: Emily Ramires Order Number: [id number] Reading MD: Denae Gomes Measurements Intervals [place] Rate: 95 P: 35 TN: 164 QRS: 7 QRSD: 101 T: 31 QT: 380 QTc: 433 Interpretive Statements SINUS RHYTHM Electronically Signed On 08-17-2018 14:57:39 EDT by Denae Gomes
[2018-08-17] MEDS: Acetaminophen 325 MG TABLET PO PRN (19:42)
[2018-08-18] MEDS: *HR* Enoxaparin 40 MG/0.4 ML SYRINGE SQ SCH (05:02)
--- NOTE | 2018-08-18 08:56 | Internal Med Progress Note ---
Date of Encounter: 08/18/18 Time of Encounter: 08:54 - Assessment and plan (1) Acute right MCA stroke Current Visit: Yes Status: Acute Assessment and plan: No acute neurological deficits noted on exam. Patient continues with left hemiplegia and left neglect. She also noted to continue to have slight expressive aphasia with word searching during answers and continues to show signs of receptive aphasia, with improved response to visual cueing. We will continue with current therapy which patient reportedly has been an improvement. We will continue with speech therapy (2) Chronic kidney disease Current Visit: Yes Status: Chronic Assessment and plan: No acute issues. Patient's most recent labs show creatinine 1.18. We will continue to monitor renal status to serial labs and continue with present medications Qualifiers: Chronic kidney disease stage: unspecified stage Qualified Code(s): N18.9 - Chronic kidney disease, unspecified (3) Hypertension Current Visit: Yes Status: Chronic Assessment and plan: Vital signs remained stable and will continue with current medications. Qualifiers: Hypertension type: essential hypertension Qualified Code(s): I10 - Essential (primary) hypertension (4) Dementia Current Visit: Yes Status: Chronic Assessment and plan: No acute issues. No behavior issues reported per nursing. Patient is interacting with staff Qualifiers: Dementia type: unspecified type Dementia behavioral disturbance: with behavioral disturbance Qualified Code(s): F03.91 - Unspecified dementia with behavioral disturbance (5) Coronary artery disease Current Visit: Yes Status: Acute Assessment and plan: Patient experienced an episode of chest pain yesterday during therapy which was relieved with rest. EKG was obtained which shows no ischemic process. Troponin was obtained which was negative. Currently patient denies any discomforts or palpitations. Patient has had reoccurring chest pain, which shows a pattern of being present for a short time and then resolving at rest. Qualifiers: Coronary Disease-Associated Artery/Lesion type: unspecified vessel or lesion type [place] vs. transplanted heart: [place] heart Associated angina: with stable angina Qualified Code(s): I25.118 - Atherosclerotic heart disease of [place] coronary artery with other forms of angina pectoris - Time Spent With Patient less than 15 minutes - Subjective Interval history: Patient appears relaxed and currently denies any discomforts or shortness of breath. Patient continues to have hesitation during answering most questions and has difficulty answering complex questions. Patient continues to require cuing during instructions in his exam. Nurse reports no issues overnight. Patient denies any further chest discomforts. - Constitutional Vitals: Temp Pulse Resp BP Pulse Ox 98.3 F 93 17 114/76 93 08/17/18 18:17 08/17/18 18:17 08/17/18 18:17 08/17/18 18:17 08/17/18 18:17 General appearance: Present: cooperative, A&O X 2, pleasant, no acute distress, answers questions appropriately Exam: Patient is oriented 2 but not to time. Patient continues to have difficulty answering complex questions and is able to answer most simple questions and follow simple commands. Noted hesitation during interview - Head Head exam: Present: atraumatic, normocephalic - Eye Eye exam: Present: PERRL, conjuntiva pink, sclera anicteric Pupils: Present: PERRL - Neck Neck exam general surgery: Present: supple, trachea midline. Absent: lymphadenopathy - Respiratory Respiratory exam: Present: decreased breath sounds, CTAB. Absent: accessory muscle use, rales, rhonchi, wheezes - Cardiovascular Cardiovascular exam: Present: RRR, +S1, +S2. Absent: diastolic murmur, gallop, rubs, systolic murmur - GI/Abdominal GI/Abdominal exam: Present: normal bowel sounds, soft, no peritoneal signs. Absent: distended, tenderness - Extremities Exam Extremities exam: Present: warm, radial pulses palpable and symmetrical. Absent: calf tenderness, cyanotic, pedal edema - Neurological Exam Neurological exam: Present: CN II-XII intact, no focal deficits, facial droop, speech deficit. Absent: pronater drift Additional comments: Patient continues with slight confusion been oriented 2 but not to time. Patient able to answer most simple questions but has difficulty with complex questioning. Patient also noted to have difficulty following complex directions and noted to perform better with visual cueing. Continues to have left neglect. Continues with slight left facial droop. Left hemiplegia and right extremities with 5/5 muscle strength. - Skin Skin exam: Present: dry, intact Internal Medicine: Result - Labs CBC & Chem 7: 08/17/18 12:01 08/17/18 12:01 Labs: Short CBC 08/17/18 Range/Units 12:01 WBC 12.4 H D (4.3-11.1) K/mcL Hgb 13.9 D (12.9-16.9) g/dL Hct 41.1 (37.5-50.1) % Plt Count 223 (140-400) K/mcL Neutrophils # 10.7 H (1.6-8.9) K/mcL BMP 08/17/18 12:01 Sodium 134 L Potassium 3.6 Chloride 101 Carbon Dioxide 24 BUN 16 Creatinine 1.18 Glucose 138 H Calcium 9.0 Cardiac Enzymes 08/17/18 08/17/18 08/18/18 Range/Units 12:01 17:57 00:35 Troponin I < 0.03 < 0.03 < 0.03 (< 0.04) ng/mL - ABG Interpretation ABG results: PT/INR, D-dimer PT 12.7 Seconds (9.4-12.1) H 08/11/18 05:35 Consult Discharge Plan - Plan Referrals: Margo Oliveira, PUBLICATION DESIGNER [Primary Care Provider] -
[2018-08-18] MEDS ORDERED: 0.9 % Sodium Chloride 1,000 ML ONE (10:09)
[2018-08-18 10:54] LABS: Hematocrit 40.2 % (37.5-50.1); Mean Corpuscular HGB Conc 32.3 g/dL (31.6-35.5); Mean Corpuscular Hemoglobin 27.3 pg (28.0-33.3); Mean Corpuscular Volume 84.5 fL (83.0-100.0); Mean Platelet Volume 10.1 fL (9.4-12.4); Platelet Count 203 K/mcL (140-400); Red Blood Count 4.76 M/mcL (4.19-5.50); Red Cell Distribution Width 15.3 % (11.5-14.5); White Blood Count 9.9 K/mcL (4.3-11.1)
[2018-08-18 11:08] LABS: ABG Base Excess -3 mEq/L (-2 to 3); ABG HCO3 20 mEq/L (21-27); ABG Oxygen Saturation 96 % (95-98); ABG PCO2 30 mmHg (35-45); ABG PH 7.43 pH Units (7.32-7.45); ABG PO2 78 mmHg (85-104); ABG TCO2 21 mEq/L (20-26)
[2018-08-18 12:04] LABS: Albumin 3.2 g/dL (3.5-5.7); Albumin/Globulin Ratio 1.2 (1.1-2.2); Bilirubin,Total 1.9 mg/dL (0.3-1.0); Calcium 8.3 mg/dL (8.6-10.3); Globulin 2.7 g/dL (2.4-3.5); Potassium 3.5 mEq/L (3.5-5.1); Total Protein 5.9 g/dL (6.4-8.9)
[2018-08-18] MEDS: Sulfacetamide Sodium 10% OPTH 15 ML BOTTLE RIGHT EYE SCH ×4 (15:25→20:14)
[2018-08-18] MEDS: Aspirin 81 MG TAB.CHEW PO SCH (15:25)
[2018-08-18] MEDS: Cholecalciferol (D-3) 1,000 UNIT (25MCG) TABLET PO SCH (15:26)
[2018-08-19] MEDS: *HR* Enoxaparin 40 MG/0.4 ML SYRINGE SQ SCH (05:22)
[2018-08-19] MEDS ORDERED: levETIRAcetam 1,000 MG in 0.9 % Sodium Chloride 100 ML IVPB ONE (09:55)
[2018-08-19] MEDS ORDERED: 0.9 % Sodium Chloride 1,000 ML IVC SCH ×2 (10:00→11:30)
--- NOTE | 2018-08-19 10:04 | Internal Med Progress Note ---
Date of Encounter: 08/19/18 Time of Encounter: 10:01 - Assessment and plan (1) Acute right MCA stroke Current Visit: Yes Status: Acute Assessment and plan: No acute neurological deficits noted on exam. Patient continues with left hemiplegia and left neglect. Questionable muscle twitch on left hip flexure. He also noted to continue to have slight expressive aphasia with word searching during answers and continues to show signs of receptive aphasia, with improved response to visual cueing. Patient with episode of syncope yesterday. Questionable seizure type activity versus orthostatic symptoms, as is been reoccurring during therapy. Will start patient on low-dose Keppra. We will obtain further labs for evaluation We will hold therapy today and continue with gentle hydration. Will continue with current therapy tomorrow, which patient reportedly has been an improvement. We will continue with speech therapy (2) Chronic kidney disease Current Visit: Yes Status: Chronic Assessment and plan: No acute issues. Patient's most recent labs show creatinine 1.49 and BUNs of 27. These reflect a slight increase along with patient experiencing questionable orthostatic symptoms when up out of bed. Patient currently recei ving IV fluids and we will repeat labs. We will continue to monitor renal status to serial labs and continue with present medications Qualifiers: Chronic kidney disease stage: unspecified stage Qualified Code(s): N18.9 - Chronic kidney disease, unspecified (3) Hypertension Current Visit: Yes Status: Chronic Assessment and plan: Vital signs remained stable and will continue with current medications. Patient has experienced low blood pressure during his episodes of syncope. We will decrease his current lisinopril to 5 mg daily Qualifiers: Hypertension type: essential hypertension Qualified Code(s): I10 - Essential (primary) hypertension (4) Dementia Current Visit: Yes Status: Chronic Assessment and plan: No acute issues. No behavior issues reported per nursing. Patient is intera cting with staff Qualifiers: Dementia type: unspecified type Dementia behavioral disturbance: with behavioral disturbance Qualified Code(s): F03.91 - Unspecified dementia with behavioral disturbance (5) Coronary artery disease Current Visit: Yes Status: Acute Assessment and plan: Patient had experienced episodes of syncope during therapy on 2 occasions over the past several days. Patient has also experienced complaints of intermittent chest discomforts during therapy. Patient currently has been placed on a monit or and remains in sinus rhythm with a rare PVC and PACs noted. No complex ectopy. Vital signs remained stable. We will continue to monitor closely Qualifiers: Coronary Disease-Associated Artery/Lesion type: unspecified vessel or lesion type [place] vs. transplanted heart: [place] heart Associated angina: with stable angina Qualified Code(s): I25.118 - Atherosclerotic heart disease of [place] coronary artery with other forms of angina pectoris - Time Spent With Patient less than 15 minutes - Subjective Interval history: Patient appears relaxed and currently denies any discomforts or shortness of breath. Patient continues to have hesitation during answering most questions and has difficulty answering complex questions. Today patient has been having one to 2 word answers to questions. Patient continues to require cuing during instructions in his exam. Nurse reports no issues overnight with no further incidents of chest discomforts or syncopal type symptoms. Patient's current plan of care was discussed with his during rounding with all questions answered and his stating understanding of current plan of care - Constitutional Vitals: Temp Pulse Resp BP Pulse Ox 97.7 F 63 16 133/80 96 08/19/18 07:00 08/19/18 07:00 08/19/18 07:00 08/19/18 07:00 08/19/18 07:00 General appearance: Present: cooperative, A&O X 2, pleasant, no acute distress, answers questions appropriately Exam: Patient continues to be somewhat confused, but is able to go ahead and show orientation 2 but not to time. Patient answer simple questions with one to 2 word answers and noted to have some hesitation or word searching. Patient unable to answer complex questions or follow complex commands without visual cueing. - Head Head exam: Present: atraumatic, normocephalic - Eye Eye exam: Present: PERRL, conjuntiva pink, sclera anicteric Pupils: Present: PERRL - Neck Neck exam general surgery: Present: supple, trachea midline. Absent: lymphadenopathy - Respiratory Respiratory exam: Present: CTAB. Absent: accessory muscle use, rales, rhonchi, wheezes - Cardiovascular Cardiovascular exam: Present: RRR, +S1, +S2. Absent: diastolic murmur, gallop, rubs, systolic murmur - GI/Abdominal GI/Abdominal exam: Present: normal bowel sounds, soft, no peritoneal signs. Absent: distended, tenderness - Extremities Exam Extremities exam: Present: warm, radial pulses palpable and symmetrical. Absent: calf tenderness, cyanotic, pedal edema - Neurological Exam Neurological exam: Present: facial droop, speech deficit. Absent: pronater drift Additional comments: Patient continues with left facial droop. Also noted continued slight expres sive aphasia and patient also is showing signs of except of aphasia, requiring visual cueing for complex commands. Patient has been answering questions with one to 2 word answers, noted to be unable to perform complex sentences. Patient continues to show left hemiplegia, although patient has had questionable muscle twitching during left hip flexure. Right extremities show muscle strength 5/5. No current seizure activity noted, with patient remaining alert - Skin Skin exam: Present: dry, intact Internal Medicine: Result - Labs CBC & Chem 7: 08/18/18 10:48 08/18/18 11:00 Labs: Short CBC 08/18/18 Range/Units 10:48 WBC 9.9 (4.3-11.1) K/mcL Hgb 13.0 (12.9-16.9) g/dL Hct 40.2 (37.5-50.1) % Plt Count 203 (140-400) K/mcL BMP 08/18/18 11:00 Sodium 135 L Potassium 3.5 Chloride 104 Carbon Dioxide 24 BUN 27 H Creatinine 1.49 H Glucose 141 H Calcium 8.3 L Liver Function 08/18/18 Range/Units 11:00 Total Bilirubin 1.9 H (0.3-1.0) mg/dL AST 47 H (13-39) Units/L ALT 71 H (7-52) Units/L Alkaline Phosphatase 66 (34-104) Units/L Albumin 3.2 L (3.5-5.7) g/dL - ABG Interpretation ABG results: ABG ABG pH 7.43 pH Units (7.32-7.45) 08/18/18 10:39 ABG pCO2 30 mmHg (35-45) L 08/18/18 10:39 ABG pO2 78 mmHg (85-104) L 08/18/18 10:39 ABG O2 Saturation 96 % (95-98) 08/18/18 10:39 PT/INR, D-dimer PT 12.7 Seconds (9.4-12.1) H 08/11/18 05:35 Consult Discharge Plan - Plan Referrals: Margo Oliveira, NATIONAL SALES EXECUTIVE [Primary Care Provider] -
[2018-08-19] MEDS: Aspirin 81 MG TAB.CHEW PO SCH (10:29)
[2018-08-19] MEDS: Sulfacetamide Sodium 10% OPTH 15 ML BOTTLE RIGHT EYE SCH ×4 (10:29→22:27)
[2018-08-19] MEDS: 0.9 % Sodium Chloride 1,000 ML IVC SCH (10:29)
[2018-08-19] MEDS: Cholecalciferol (D-3) 1,000 UNIT (25MCG) TABLET PO SCH (10:29)
[2018-08-19] MEDS: Ipratropium/Albuterol Neb 3 ML IH SCH ×3 (17:36→22:21)
[2018-08-20] MEDS: Ipratropium/Albuterol Neb 3 ML IH SCH ×4 (03:12→22:06)
[2018-08-20] MEDS: 0.9 % Sodium Chloride 1,000 ML IVC SCH ×2 (03:12→20:01)
[2018-08-20] MEDS: *HR* Enoxaparin 40 MG/0.4 ML SYRINGE SQ SCH (05:06)
[2018-08-20 06:04] LABS: Hematocrit 34.6 % (37.5-50.1); Hemoglobin 11.3 g/dL (12.9-16.9); Mean Corpuscular HGB Conc 32.7 g/dL (31.6-35.5); Mean Corpuscular Hemoglobin 27.2 pg (28.0-33.3); Mean Corpuscular Volume 83.2 fL (83.0-100.0); Mean Platelet Volume 9.9 fL (9.4-12.4); Platelet Count 171 K/mcL (140-400); Red Blood Count 4.16 M/mcL (4.19-5.50); Red Cell Distribution Width 14.6 % (11.5-14.5); White Blood Count 6.1 K/mcL (4.3-11.1)
[2018-08-20 06:11] LABS: Alanine Aminotransferase 69 Units/L (7-52); Albumin/Globulin Ratio 1.3 (1.1-2.2); Alkaline Phosphatase 56 Units/L (34-104); Aspartate Amino Transferase 43 Units/L (13-39); BUN/Creatinine Ratio 23 (6-26); Bilirubin,Total 1.2 mg/dL (0.3-1.0); Blood Urea Nitrogen 24 mg/dL (8-23); Calcium 8.2 mg/dL (8.6-10.3); Carbon Dioxide 26 mEq/L (23-29); Chloride 105 mEq/L (98-107); Globulin 2.4 g/dL (2.4-3.5); Glucose 105 mg/dL (70-105); Osmolality,Calculated 286 (280-300); Potassium 3.8 mEq/L (3.5-5.1); Sodium 136 mEq/L (136-145); Total Protein 5.4 g/dL (6.4-8.9); eGFR For African Americans > 60 (> 60); eGFR For Non-African Americans > 60 (> 60)
[2018-08-20 06:32] LABS: Thyroid Stimulating Hormone 4.931 mcIU/mL (0.340-5.600)
[2018-08-20] MEDS: Cholecalciferol (D-3) 1,000 UNIT (25MCG) TABLET PO SCH (10:24)
[2018-08-20] MEDS: Aspirin 81 MG TAB.CHEW PO SCH (10:24)
[2018-08-20] MEDS: Sulfacetamide Sodium 10% OPTH 15 ML BOTTLE RIGHT EYE SCH ×4 (10:24→20:05)
--- NOTE | 2018-08-20 11:12 | Internal Med Progress Note ---
Date of Encounter: 08/20/18 Time of Encounter: 11:10 - Assessment and plan (1) Acute right MCA stroke Current Visit: Yes Status: Acute Assessment and plan: Continue PT and OT and ST. Will follow progress. No new neurological deficits at this time. Follow up with neurology as scheduled. Has left hemiparesis, visual cut, dysphagia and agnosia, and receptive aphasia. (2) Hypertension Current Visit: Yes Status: Chronic Assessment and plan: Controlled with current medication. Monitor blood pressure. Qualifiers: Hypertension type: essential hypertension Qualified Code(s): I10 - Essential (primary) hypertension (3) Dementia Current Visit: Yes Status: Chronic Assessment and plan: Progressive disease. Continue supportive care. Increased risk for follows, dehydration, malnutrition, skin breakdown and pneumonia Qualifiers: Dementia type: unspecified type Dementia behavioral disturbance: with behavioral disturbance Qualified Code(s): F03.91 - Unspecified dementia with behavioral disturbance (4) Chronic kidney disease Current Visit: Yes Status: Chronic Assessment and plan: Stable. Follow labs. Avoid nephrotoxic agents. Qualifiers: Chronic kidney disease stage: unspecified stage Qualified Code(s): N18.9 - Chronic kidney disease, unspecified (5) Dysphagia Current Visit: Yes Status: Acute Assessment and plan: Continue mechanical altered diet with thin liquids. Up for meals with supervision. Monitor for pocketing and left cheek. Encourage to chew on right side. Oral care after all meals. Continue speech therapy. Will follow progress. Qualifiers: Dysphagia type: unspecified Qualified Code(s): R13.10 - Dysphagia, unspecified - Time Spent With Patient less than 15 minutes - Subjective Interval history: Participating with therapy. Continues to make very slow improvement. Fatigues easily. Currently resting in bed. Denies any complaints at this time. Max assist times 2 to transfer from bed to wheelchair. Maintaining appetite. Continues to pocket food on left side. No new neurological deficits at this time. - Constitutional Vitals: Temp Pulse Resp BP Pulse Ox 98.3 F 60 16 138/88 97 08/20/18 07:56 08/20/18 07:56 08/20/18 07:56 08/20/18 07:56 08/20/18 07:56 General appearance: Present: cooperative, A&O X 2, pleasant, no acute distress, answers questions appropriately - Head Head exam: Present: atraumatic, normocephalic - Eye Eye exam: Present: PERRL, conjuntiva pink, sclera anicteric Pupils: Present: PERRL - Neck Neck exam general surgery: Present: supple, trachea midline. Absent: lymphadenopathy - Respiratory Respiratory exam: Present: CTAB. Absent: accessory muscle use, rales, rhonchi, wheezes - Cardiovascular Cardiovascular exam: Present: RRR, +S1, +S2. Absent: diastolic murmur, gallop, rubs, systolic murmur - GI/Abdominal GI/Abdominal exam: Present: normal bowel sounds, soft, no peritoneal signs. Absent: distended, tenderness - Extremities Exam Extremities exam: Present: warm, radial pulses palpable and symmetrical. Absent: calf tenderness, cyanotic, pedal edema Additional comments: left hemiplegia - Neurological Exam Neurological exam: Present: CN II-XII intact, oriented X3, no focal deficits. Absent: pronater drift, facial droop, speech deficit - Skin Skin exam: Present: dry, intact Internal Medicine: Result - Labs CBC & Chem 7: 08/20/18 05:35 08/20/18 05:35 Labs: Short CBC 08/20/18 Range/Units 05:35 WBC 6.1 (4.3-11.1) K/mcL Hgb 11.3 L D (12.9-16.9) g/dL Hct 34.6 L (37.5-50.1) % Plt Count 171 (140-400) K/mcL BMP 08/20/18 05:35 Sodium 136 Potassium 3.8 Chloride 105 Carbon Dioxide 26 BUN 24 H Creatinine 1.05 Glucose 105 Calcium 8.2 L Liver Function 08/20/18 Range/Units 05:35 Total Bilirubin 1.2 H (0.3-1.0) mg/dL AST 43 H (13-39) Units/L ALT 69 H (7-52) Units/L Alkaline Phosphatase 56 (34-104) Units/L Albumin 3.0 L (3.5-5.7) g/dL - ABG Interpretation ABG results: ABG ABG pH 7.43 pH Units (7.32-7.45) 08/18/18 10:39 ABG pCO2 30 mmHg (35-45) L 08/18/18 10:39 ABG pO2 78 mmHg (85-104) L 08/18/18 10:39 ABG O2 Saturation 96 % (95-98) 08/18/18 10:39 PT/INR, D-dimer PT 12.7 Seconds (9.4-12.1) H 08/11/18 05:35 Consult Discharge Plan - Plan Referrals: Margo Oliveira, INSURANCE LOSS ADJUSTER [Primary Care Provider] -
[2018-08-20] MEDS: levETIRAcetam 250 MG TABLET PO SCH (17:37)
[2018-08-20] MEDS: Acetaminophen 325 MG TABLET PO PRN (23:50)
[2018-08-21] MEDS: Ipratropium/Albuterol Neb 3 ML IH SCH ×4 (04:45→21:20)
[2018-08-21] MEDS: levETIRAcetam 250 MG TABLET PO SCH ×2 (05:52→17:32)
[2018-08-21] MEDS: *HR* Enoxaparin 40 MG/0.4 ML SYRINGE SQ SCH (05:52)
[2018-08-21] MEDS: Cholecalciferol (D-3) 1,000 UNIT (25MCG) TABLET PO SCH (08:23)
[2018-08-21] MEDS: Aspirin 81 MG TAB.CHEW PO SCH (08:23)
[2018-08-21] MEDS: Sulfacetamide Sodium 10% OPTH 15 ML BOTTLE RIGHT EYE SCH ×4 (08:25→21:16)
--- NOTE | 2018-08-21 14:17 | Internal Med Progress Note ---
Date of Encounter: 08/22/18 Time of Encounter: 02:10 - Subjective Interval history: - Assessment and plan (1) Acute right MCA stroke Current Visit: Yes Status: Acute Assessment and plan: Continue PT and OT and ST. Will follow progress. No new neurological deficits at this time. Follow up with neurology as scheduled. Has severe left hemiparesis with some neglect, visual cut, dysphagia and agnosia, and receptive aphasia. Had appearance of partial seizure episodes that have gone away on Keppra. FAmily aware. Will continue Keppra for now and he will follow up with neurology. (2) Hypertension Current Visit: Yes Status: Chronic Assessment and plan: Controlled with current medication. Monitor blood pressure. Qualifiers: Hypertension type: essential hypertension Qualified Code(s): I10 - Essential (primary) hypertension (3) Dementia Current Visit: Yes Status: Chronic Assessment and plan: Progressive disease. Continue supportive care. Increased risk for follows, dehydration, malnutrition, skin breakdown and pneumonia Qualifiers: Dementia type: unspecified type Dementia behavioral disturbance: with behavioral disturbance Qualified Code(s): F03.91 - Unspecified dementia with behavioral disturbance (4) Chronic kidney disease Current Visit: Yes Status: Chronic Assessment and plan: Stable. Follow labs. Avoid nephrotoxic agents. Qualifiers: Chronic kidney disease stage: unspecified stage Qualified Code(s): N18.9 - Chronic kidney disease, unspecified (5) Dysphagia Current Visit: Yes Status: Acute Assessment and plan: Continue mechanical altered diet with thin liquids. Up for meals with supervision. Monitor for pocketing and left cheek. Encourage to chew on right side. Oral care after all meals. Continue speech therapy. Will follow progress. Qualifiers: Dysphagia type: unspecified Qualified Code(s): R13.10 - Dysphagia, unspecified - Time Spent With Patient less than 15 minutes - Subjective Interval history: Participating with therapy. Continues to make very slow improvement. Fatigues easily. Currently up in chair. He did a lot in therapy today. He did have a visit from his dog Ritika During visit he was noted to be more interactive and smile. He appears to be somewhat depressed at other times. He has been on zoloft for this. He overall has slow swallowing he needs assist most of time with eating. Max assist times 2 to transfer from bed to wheelchair. Maintaining appetite. Continues to pocket food on left side. No new neurological deficits at this time. - EXAM General appearance: Present: WM at times he becomes easily fatigued but overall cooperative, A&O X 2, pleasant, no acute distress, answers questions appropriately, is slow overall in movements and responsiveness - Head Head exam: Present: atraumatic, normocephalic - Eye Eye exam: Present: PERRL, conjuntiva pink, sclera anicteric Pupils: Present: PERRL - Neck Neck exam general surgery: Present: supple, trachea midline. Absent: lymphaden opathy - Respiratory Respiratory exam: Present: CTAB. Absent: accessory muscle use, rales, rhonchi, wheezes - Cardiovascular Cardiovascular exam: Present: RRR, +S1, +S2. Absent: diastolic murmur, gallop, rubs, systolic murmur - GI/Abdominal GI/Abdominal exam: Present: normal bowel sounds, soft, no peritoneal signs. Absent: distended, tenderness - Extremities Exam Extremities exam: Present: warm, radial pulses palpable and symmetrical. A bsent: calf tenderness, cyanotic, pedal edema Additional comments: left hemiplegia - Neurological Exam Neurological exam: he has some unilateral neglect left side - Skin Skin exam: Present: dry, intact - Constitutional Vitals: Temp Pulse Resp BP Pulse Ox 98.2 F 72 19 154/89 95 08/21/18 08:05 08/21/18 08:05 08/21/18 10:21 08/21/18 08:05 08/21/18 10:21 General appearance: Present: cooperative, A&O X 2, pleasant, no acute distress, answers questions appropriately Internal Medicine: Result - Labs CBC & Chem 7: 08/20/18 05:35 08/20/18 05:35 - ABG Interpretation ABG results: ABG ABG pH 7.43 pH Units (7.32-7.45) 08/18/18 10:39 ABG pCO2 30 mmHg (35-45) L 08/18/18 10:39 ABG pO2 78 mmHg (85-104) L 08/18/18 10:39 ABG O2 Saturation 96 % (95-98) 08/18/18 10:39 PT/INR, D-dimer PT 12.7 Seconds (9.4-12.1) H 08/11/18 05:35 Consult Discharge Plan - Plan Referrals: Margo Oliveira, CLINICAL REGISTERED NURSE [Primary Care Provider] -
[2018-08-22] MEDS: Ipratropium/Albuterol Neb 3 ML IH SCH ×4 (04:30→22:00)
[2018-08-22] MEDS: levETIRAcetam 250 MG TABLET PO SCH ×2 (05:11→17:43)
[2018-08-22] MEDS: *HR* Enoxaparin 40 MG/0.4 ML SYRINGE SQ SCH (05:12)
[2018-08-22] MEDS: Aspirin 81 MG TAB.CHEW PO SCH (08:32)
[2018-08-22] MEDS: Sulfacetamide Sodium 10% OPTH 15 ML BOTTLE RIGHT EYE SCH ×4 (08:32→21:23)
[2018-08-22] MEDS: Cholecalciferol (D-3) 1,000 UNIT (25MCG) TABLET PO SCH (08:32)
--- NOTE | 2018-08-22 13:08 | Internal Med Progress Note ---
Date of Encounter: 08/22/18 Time of Encounter: 01:08 - Subjective Interval history: - Assessment and plan (1) Acute right MCA stroke Current Visit: Yes Status: Acute Assessment and plan: Continue PT and OT and ST. Will follow progress. No new neurological deficits at this time. Follow up with neurology as scheduled. Has severe left hemiparesis with some neglect, visual cut, dysphagia and agnosia, and receptive aphasia. Had appearance of partial seizure episodes that have gone away on Keppra. FAmily aware. Will continue Keppra for now and he will follow up with neurology. (2) Hypertension Current Visit: Yes Status: Chronic Assessment and plan: Controlled with current medication. Monitor blood pressure. Qualifiers: Hypertension type: essential hypertension Qualified Code(s): I10 - Essential (primary) hypertension (3) Dementia Current Visit: Yes Status: Chronic Assessment and plan: Progressive disease. Continue supportive care. Increased risk for follows, dehydration, malnutrition, skin breakdown and pneumonia Qualifiers: Dementia type: unspecified type Dementia behavioral disturbance: with behavioral disturbance Qualified Code(s): F03.91 - Unspecified dementia with behavioral disturbance (4) Chronic kidney disease Current Visit: Yes Status: Chronic Assessment and plan: Stable. Follow labs. Avoid nephrotoxic agents. Qualifiers: Chronic kidney disease stage: unspecified stage Qualified Code(s): N18.9 - Chronic kidney disease, unspecified (5) Dysphagia Current Visit: Yes Status: Acute Assessment and plan: Continue mechanical altered diet with thin liquids. Up for meals with supervision. Monitor for pocketing and left cheek. Encourage to chew on right side. Oral care after all meals. Continue speech therapy. Will follow progress. Qualifiers: Dysphagia type: unspecified Qualified Code(s): R13.10 - Dysphagia, unspecified - Time Spent With Patient less than 15 minutes - Subjective Interval history: Participating but appears more depressed today. Continues to make very slow improvement. Fatigues easily. He did a lot in therapy today. He did have a visit from his dog Ritika During visit he was noted to be more interactive and smile. He appears to be somewhat depressed at other times. He has been on zoloft for this. He overall has slow swallowing he needs assist most of time with eating. Not clear if he will be able to maintain nutrition / hydration on his own. FPC he may improve or if not he may be candidate for PEG tube. Will change zoloft to duloxitine to see if improvement in mood improves his PO intake. Still with dysphagia. Max assist times 2 to transfer from bed to wheelchair. Needs reminders to swallow. With help he ate well this am but now for lunch he is not eating much. Still getting IV fluids at night times. He is incontinant so difficult to assess output. Continues to pocket food on left side. No new neurological deficits at this time. - EXAM General appearance: Present: WM alert but at times he becomes easily fatigued but overall cooperative, A&O X 2, pleasant, no acute distress, answers questions appropriately, is slow overall in movements and responsiveness - Head Head exam: Present: atraumatic, normocephalic - Eye Eye exam: Present: PERRL, conjuntiva pink, sclera anicteric Pupils: Present: PERRL - Neck Neck exam general surgery: Present: supple, trachea midline. Absent: lymphadenopathy - Respiratory Respiratory exam: Present: CTAB. Absent: accessory muscle use, rales, rhonchi, wheezes - Cardiovascular Cardiovascular exam: Present: RRR, +S1, +S2. Absent: diastolic murmur, gallop, rubs, systolic murmur - GI/Abdominal GI/Abdominal exam: Present: normal bowel sounds, soft, no peritoneal signs. Absent: distended, tenderness - Extremities Exam Extremities exam: Present: warm, radial pulses palpable and symmetrical. Absent: calf tenderness, cyanotic, pedal edema Additional comments: left hemiplegia - Neurological Exam Neurological exam: he has some unilateral neglect left side - Skin Skin exam: Present: dry, intact - Constitutional Vitals: Temp Pulse Resp BP Pulse Ox 98.0 F 76 19 152/84 97 08/22/18 08:16 08/22/18 08:16 08/22/18 10:03 08/22/18 08:16 08/22/18 10:03 General appearance: Present: cooperative, A&O X 2, pleasant, no acute distress, answers questions appropriately Internal Medicine: Result - Labs CBC & Chem 7: 08/20/18 05:35 08/20/18 05:35 - ABG Interpretation ABG results: ABG ABG pH 7.43 pH Units (7.32-7.45) 08/18/18 10:39 ABG pCO2 30 mmHg (35-45) L 08/18/18 10:39 ABG pO2 78 mmHg (85-104) L 08/18/18 10:39 ABG O2 Saturation 96 % (95-98) 08/18/18 10:39 PT/INR, D-dimer PT 12.7 Seconds (9.4-12.1) H 08/11/18 05:35 Consult Discharge Plan - Plan Referrals: Margo Oliveira, CH[employer] P[employer]ER [Primary Care Provider] -
[2018-08-23] MEDS: Ipratropium/Albuterol Neb 3 ML IH SCH ×4 (05:04→23:34)
[2018-08-23] MEDS: *HR* Enoxaparin 40 MG/0.4 ML SYRINGE SQ SCH (05:19)
[2018-08-23] MEDS: levETIRAcetam 250 MG TABLET PO SCH (05:19)
[2018-08-23] MEDS: Aspirin 81 MG TAB.CHEW PO SCH (08:25)
[2018-08-23] MEDS: Cholecalciferol (D-3) 1,000 UNIT (25MCG) TABLET PO SCH (08:25)
[2018-08-23] MEDS: Sulfacetamide Sodium 10% OPTH 15 ML BOTTLE RIGHT EYE SCH ×4 (08:26→19:56)
--- NOTE | 2018-08-23 09:25 | Internal Med Progress Note ---
Date of Encounter: 08/23/18 Time of Encounter: 09:22 - Assessment and plan (1) Acute right MCA stroke Current Visit: Yes Status: Acute Assessment and plan: Continue PT and OT and ST. Will follow progress. No new neurological deficits at this time. Follow up with neurology as scheduled. Has left hemiparesis, visual cut, dysphagia and agnosia, and receptive aphasia. (2) Hypertension Current Visit: Yes Status: Chronic Assessment and plan: Controlled with current medication. Monitor blood pressure. Qualifiers: Hypertension type: essential hypertension Qualified Code(s): I10 - Essential (primary) hypertension (3) Dementia Current Visit: Yes Status: Chronic Assessment and plan: Progressive disease. Continue supportive care. Increased risk for follows, dehydration, malnutrition, skin breakdown and pneumonia Qualifiers: Dementia type: unspecified type Dementia behavioral disturbance: with behavioral disturbance Qualified Code(s): F03.91 - Unspecified dementia with behavioral disturbance (4) Chronic kidney disease Current Visit: Yes Status: Chronic Assessment and plan: Stable. Follow labs. Avoid nephrotoxic agents. Qualifiers: Chronic kidney disease stage: unspecified stage Qualified Code(s): N18.9 - Chronic kidney disease, unspecified (5) Dysphagia Current Visit: Yes Status: Acute Assessment and plan: Continue mechanical altered diet with thin liquids. Up for meals with supervision. Monitor for pocketing and left cheek. Encourage to chew on right side. Oral care after all meals. Continue speech therapy. Will follow progress. Qualifiers: Dysphagia type: unspecified Qualified Code(s): R13.10 - Dysphagia, unspecified - Time Spent With Patient less than 15 minutes - Subjective Interval history: Participating with therapy. Continues to make very slow improvement. Fatigues easily. Currently resting in bed. Denies any complaints at this time. Max assist times 2 to transfer from bed to wheelchair. Maintaining appetite. No new neurological deficits at this time. - Constitutional Vitals: Temp Pulse Resp BP Pulse Ox 97.9 F 76 18 165/94 90 08/23/18 07:00 08/23/18 07:00 08/23/18 07:00 08/23/18 07:00 08/23/18 07:00 General appearance: Present: cooperative, A&O X 2, pleasant, no acute distress, answers questions appropriately Exam: hearing aides on. - Head Head exam: Present: atraumatic, normocephalic - Eye Eye exam: Present: PERRL, conjuntiva pink, sclera anicteric Pupils: Present: PERRL - Neck Neck exam general surgery: Present: supple, trachea midline. Absent: lymphadenopathy - Respiratory Respiratory exam: Present: CTAB. Absent: accessory muscle use, rales, rhonchi, wheezes - Cardiovascular Cardiovascular exam: Present: RRR, +S1, +S2. Absent: diastolic murmur, gallop, rubs, systolic murmur - GI/Abdominal GI/Abdominal exam: Present: normal bowel sounds, soft, no peritoneal signs. Ab sent: distended, tenderness - Extremities Exam Extremities exam: Present: warm, radial pulses palpable and symmetrical. Absent: calf tenderness, cyanotic, pedal edema Additional comments: left hemiplegia - Neurological Exam Neurological exam: Present: CN II-XII intact, oriented X3, no focal deficits. Absent: pronater drift, facial droop, speech deficit - Skin Skin exam: Present: dry, intact Additional comments: bruising to right hand and FA Internal Medicine: Result - Labs CBC & Chem 7: 08/20/18 05:35 08/20/18 05:35 - ABG Interpretation ABG results: ABG ABG pH 7.43 pH Units (7.32-7.45) 08/18/18 10:39 ABG pCO2 30 mmHg (35-45) L 08/18/18 10:39 ABG pO2 78 mmHg (85-104) L 08/18/18 10:39 ABG O2 Saturation 96 % (95-98) 08/18/18 10:39 PT/INR, D-dimer PT 12.7 Seconds (9.4-12.1) H 08/11/18 05:35 Consult Discharge Plan - Plan Referrals: Margo Oliveira, LEAF [employer] PICKER [Primary Care Provider] -
--- NOTE | 2018-08-23 10:58 | Event Note ---
Date of Encounter: 08/23/18 Time of Encounter: 10:54 10am Patient was participating in therapy, lying supine and began to get very fatigued. Patient was sleeping and snoring loudly. Able to arouse easily. Blood pressure 157/111, pulse 80, O2 sat 94%. 10 minutes later rechecked blood pressure lying down was 152/83 heart rate 76 and O2 sat 95%. Patient denies any discomfort. That patient up and blood pressure went down to 108/52 with pulse 92 and O2 sat 91%. After sitting for 5 minutes blood pressure return to 138/107, heart rate 100 and O2 sat 97%. Patient denies any dizziness or discomfort. States he is just very tired. 5 minutes later as patient continues to be in sitting position with legs dangling off the table, blood pressure 145/100 heart rate 100 and O2 sat 97% on room air. 1045 Patient is now in seating position participating well with therapy.
[2018-08-24] MEDS: Ipratropium/Albuterol Neb 3 ML IH SCH ×4 (04:42→22:51)
[2018-08-24] MEDS: *HR* Enoxaparin 40 MG/0.4 ML SYRINGE SQ SCH (05:30)
[2018-08-24] MEDS: Aspirin 81 MG TAB.CHEW PO SCH (07:48)
[2018-08-24] MEDS: Cholecalciferol (D-3) 1,000 UNIT (25MCG) TABLET PO SCH (07:48)
[2018-08-24] MEDS: Sulfacetamide Sodium 10% OPTH 15 ML BOTTLE RIGHT EYE SCH (07:49)
[2018-08-24 10:15] LABS: Basophils % 0.3 %; Eosinophils # 0.3 K/mcL (0.0-0.6); Eosinophils % 3.6 %; Hematocrit 37.2 % (37.5-50.1); Hemoglobin 12.1 g/dL (12.9-16.9); Immature Granulocytes % 0.4 % (0-4); Lymphocytes # 0.6 K/mcL (0.6-4.6); Lymphocytes % 6.8 %; Mean Corpuscular HGB Conc 32.5 g/dL (31.6-35.5); Mean Corpuscular Hemoglobin 27.6 pg (28.0-33.3); Mean Corpuscular Volume 84.7 fL (83.0-100.0); Mean Platelet Volume 10.2 fL (9.4-12.4); Monocytes # 0.5 K/mcL (0.0-1.3); Monocytes % 5.1 %; Neutrophils # 7.7 K/mcL (1.6-8.9); Platelet Count 227 K/mcL (140-400); Red Blood Count 4.39 M/mcL (4.19-5.50); Red Cell Distribution Width 15.2 % (11.5-14.5); Segmented Neutrophils % 83.8 %
[2018-08-24 10:18] LABS: White Blood Count 9.2 K/mcL (4.3-11.1)
[2018-08-24 10:42] LABS: Alanine Aminotransferase 101 Units/L (7-52); Albumin 3.4 g/dL (3.5-5.7); Albumin/Globulin Ratio 1.2 (1.1-2.2); Alkaline Phosphatase 65 Units/L (34-104); Aspartate Amino Transferase 55 Units/L (13-39); BUN/Creatinine Ratio 18 (6-26); Bilirubin,Total 1.8 mg/dL (0.3-1.0); Blood Urea Nitrogen 17 mg/dL (8-23); Calcium 8.6 mg/dL (8.6-10.3); Carbon Dioxide 25 mEq/L (23-29); Chloride 101 mEq/L (98-107); Globulin 2.8 g/dL (2.4-3.5); Glucose 140 mg/dL (70-105); Osmolality,Calculated 276 (280-300); Potassium 3.7 mEq/L (3.5-5.1); Sodium 131 mEq/L (136-145); Total Protein 6.2 g/dL (6.4-8.9); eGFR For African Americans > 60 (> 60); eGFR For Non-African Americans > 60 (> 60)
--- NOTE | 2018-08-24 11:34 | Internal Med Progress Note ---
Date of Encounter: 08/24/18 Time of Encounter: 08:10 - Assessment and plan (1) Acute right MCA stroke Current Visit: Yes Status: Acute Assessment and plan: We will continue therapies as planned. Participation with his daily fatigue episodes as problematic. We will try adjusting his sleep schedule and neurology follow-up is planned. He does not seem to have any partial complex seizures as previously suspected. (2) Dementia Current Visit: Yes Status: Chronic Assessment and plan: This is apparently at baseline. Qualifiers: Dementia type: unspecified type Dementia behavioral disturbance: with behavioral disturbance Qualified Code(s): F03.91 - Unspecified dementia with behavioral disturbance (3) Hypertension Current Visit: Yes Status: Chronic Assessment and plan: Marginally controlled but with significant elevations of orthostasis and/or hypo tension. Qualifiers: Hypertension type: essential hypertension Qualified Code(s): I10 - Essential (primary) hypertension (4) Dysphagia Current Visit: Yes Status: Acute Assessment and plan: He is stable. On a pureed diet. Qualifiers: Dysphagia type: unspecified Qualified Code(s): R13.10 - Dysphagia, unspecified (5) MDD (major depressive disorder) Current Visit: No Status: Acute Assessment and plan: He is on the list to see psychology, tomorrow. Qualifiers: Major depression recurrence: recurrent Active/Remission status: currently a ctive Major depression episode severity: unspecified Qualified Code(s): F33.9 - Major depressive disorder, recurrent, unspecified (6) Metabolic acidosis Current Visit: Yes Status: Acute Assessment and plan: Improved (7) Conjunctivitis Current Visit: Yes Status: Acute Assessment and plan: He has now been on 10 days of antibiotics. We will follow without eyedrops. Qualifiers: Conjunctivitis type: acute Acute conjunctivitis type: unspecified Laterality: right Qualified Code(s): H10.31 - Unspecified acute conjunctivitis, right eye - Subjective Interval history: Patient is doing fine, eating breakfast, without complaint. He is alert and at his baseline. He denies acute problems. Patient has no complaint of chest discomfort, dyspnea, orthopnea, palpitations, nausea or vomiting, constipation or diarrhea, other changes in bowel habits, difficulty with urination, rash or itching, or other new complaints, except as mentioned above. Review of systems is otherwise negative. I discussed management of her care with nursing staff. - Constitutional Vitals: Temp Pulse Resp BP Pulse Ox 97.7 F 77 14 153/90 94 08/24/18 07:10 08/24/18 11:08 08/24/18 11:08 08/24/18 11:08 08/24/18 11:08 Exam: Examination: (Except as mentioned above): General: In no apparent distress. Alert and oriented 3. Nondiaphoretic. Head: Atraumatic and normocephalic. Respiratory: No use of accessory muscles. Lungs are clear throughout. Normal airflow. Cardiovascular: Regular rate and rhythm without murmur appreciated. Abdomen: Bowel sounds are normal. No hepatosplenomegaly mass or tenderness appreciated. Obese and therefore difficult to palpate deeply. Extremities: No cyanosis clubbing or edema. Skin: Warm and non-diaphoretic with no new lesions noted. Neurological: Still with left facial droop, pocketing, severe left chance- neglect. However, he has good dorsiflexion and plantar flexion at the left lower extremity. Left hand grasp is 2/5. Internal Medicine: Result - Labs CBC & Chem 7: 08/24/18 09:45 08/24/18 09:45 Labs: Short CBC 08/24/18 Range/Units 09:45 WBC 9.2 D (4.3-11.1) K/mcL Hgb 12.1 L (12.9-16.9) g/dL Hct 37.2 L (37.5-50.1) % Plt Count 227 (140-400) K/mcL Neutrophils # 7.7 (1.6-8.9) K/mcL BMP 08/24/18 09:45 Sodium 131 L Potassium 3.7 Chloride 101 Carbon Dioxide 25 BUN 17 Creatinine 0.92 Glucose 140 H Calcium 8.6 Liver Function 08/24/18 Range/Units 09:45 Total Bilirubin 1.8 H (0.3-1.0) mg/dL AST 55 H (13-39) Units/L ALT 101 H (7-52) Units/L Alkaline Phosphatase 65 (34-104) Units/L Albumin 3.4 L (3.5-5.7) g/dL - ABG Interpretation ABG results: ABG ABG pH 7.43 pH Units (7.32-7.45) 08/18/18 10:39 ABG pCO2 30 mmHg (35-45) L 08/18/18 10:39 ABG pO2 78 mmHg (85-104) L 08/18/18 10:39 ABG O2 Saturation 96 % (95-98) 08/18/18 10:39 PT/INR, D-dimer PT 12.7 Seconds (9.4-12.1) H 08/11/18 05:35 Consult Discharge Plan - Plan Referrals: Margo Oliveira, LEAD TANK MECHANIC [Primary Care Provider] -
[2018-08-24] MEDS: Acetaminophen 325 MG TABLET PO PRN (22:50)
[2018-08-25] MEDS: Ipratropium/Albuterol Neb 3 ML IH SCH ×4 (04:57→19:47)
[2018-08-25] MEDS: *HR* Enoxaparin 40 MG/0.4 ML SYRINGE SQ SCH (04:57)
[2018-08-25] MEDS: Cholecalciferol (D-3) 1,000 UNIT (25MCG) TABLET PO SCH (10:16)
[2018-08-25] MEDS: Aspirin 81 MG TAB.CHEW PO SCH (10:16)
--- NOTE | 2018-08-25 14:47 | Internal Med Progress Note ---
Date of Encounter: 08/25/18 Time of Encounter: 14:44 - Assessment and plan (1) Acute right MCA stroke Current Visit: Yes Status: Acute Assessment and plan: Continue PT and OT and ST. Will follow progress. No new neurological deficits at this time. Follow up with neurology as scheduled. Has left hemiparesis, visual cut, dysphagia and agnosia, and receptive aphasia. (2) Hypertension Current Visit: Yes Status: Chronic Assessment and plan: Controlled with current medication. Monitor blood pressure. Qualifiers: Hypertension type: essential hypertension Qualified Code(s): I10 - Essential (primary) hypertension (3) Dementia Current Visit: Yes Status: Chronic Assessment and plan: Progressive disease. Continue supportive care. Increased risk for follows, dehydration, malnutrition, skin breakdown and pneumonia Qualifiers: Dementia type: unspecified type Dementia behavioral disturbance: with behavioral disturbance Qualified Code(s): F03.91 - Unspecified dementia with behavioral disturbance (4) Chronic kidney disease Current Visit: Yes Status: Chronic Assessment and plan: Stable. Follow labs. Avoid nephrotoxic agents. Qualifiers: Chronic kidney disease stage: unspecified stage Qualified Code(s): N18.9 - Chronic kidney disease, unspecified (5) Dysphagia Current Visit: Yes Status: Acute Assessment and plan: Continue mechanical altered diet with thin liquids. Up for meals with supervision. Monitor for pocketing and left cheek. Encourage to chew on right side. Oral care after all meals. Continue speech therapy. Will follow progress. Qualifiers: Dysphagia type: unspecified Qualified Code(s): R13.10 - Dysphagia, unspecified - Time Spent With Patient 25 - 35 minutes - Subjective Interval history: Participating with therapy. Continues to make very slow improvement. Fatigues easily. Currently resting in bed. Denies any complaints at this time. Max assist times 2 to transfer from bed to wheelchair. Maintaining appetite. No new neurological deficits at this time. Providing rest breaks and allowing him to sleep in until 10 AM. Will try BiPAP tonight possible sleep apnea. - Constitutional Vitals: Temp Pulse Resp BP Pulse Ox 97.3 F L 76 14 186/100 95 08/25/18 09:00 08/25/18 09:00 08/25/18 09:00 08/25/18 09:00 08/25/18 09:00 General appearance: Present: cooperative, A&O X 2, pleasant, no acute distress, answers questions appropriately Exam: left visual field cut. [place] with hearing aids - Head Head exam: Present: atraumatic, normocephalic - Eye Eye exam: Present: PERRL, conjuntiva pink, sclera anicteric Pupils: Present: PERRL - Neck Neck exam general surgery: Present: supple, trachea midline. Absent: lymphadenopathy - Respiratory Respiratory exam: Present: CTAB. Absent: accessory muscle use, rales, rhonchi, wheezes - Cardiovascular Cardiovascular exam: Present: RRR, +S1, +S2. Absent: diastolic murmur, gallop, rubs, systolic murmur - GI/Abdominal GI/Abdominal exam: Present: normal bowel sounds, soft, no peritoneal signs. Absent: distended, tenderness - Extremities Exam Extremities exam: Present: warm, radial pulses palpable and symmetrical. Abse nt: calf tenderness, cyanotic, pedal edema Additional comments: left hemiplegia - Neurological Exam Neurological exam: Present: CN II-XII intact, oriented X3, no focal deficits. Absent: pronater drift, facial droop, speech deficit - Skin Skin exam: Present: dry, intact Internal Medicine: Result - Labs CBC & Chem 7: 08/24/18 09:45 08/24/18 09:45 - ABG Interpretation ABG results: ABG ABG pH 7.43 pH Units (7.32-7.45) 08/18/18 10:39 ABG pCO2 30 mmHg (35-45) L 08/18/18 10:39 ABG pO2 78 mmHg (85-104) L 08/18/18 10:39 ABG O2 Saturation 96 % (95-98) 08/18/18 10:39 PT/INR, D-dimer PT 12.7 Seconds (9.4-12.1) H 08/11/18 05:35 Consult Discharge Plan - Plan Referrals: Margo Oliveira, TRAIN GATE ATTENDANT [Primary Care Provider] -
--- NOTE | 2018-08-25 14:55 | Psychological Evaluation ---
Date of Encounter: 08/25/18 Time of Encounter: 11:00 History of Present Illness History of present illness: Mr. Golden is a 78 year old male who was transferred here from an another out of [facility] where he was treated for a right MCA infarct. Patient has experienced left sided weakness with LUE plegia and LLE paresis. Patient has also been experiencing left sided neglect and dysphasia. Patient also has very poor hearing, and dementia. Patient has a Hx of HTN, dementia and major depr ession. Past Medical History - Psychiatric History Psychiatric history: Reports: anxiety, depression Additional Psychiatric History: stated he has been on an antidepressant for last several years. Home Medications and Allergies Aspirin 81 mg PO DAILY 04/02/16 [History] Cholecalciferol (D-3) [Vitamin D] 5,000 unit PO DAILY 04/02/16 [History] Folic Acid 0.8 mg PO DAILY 04/02/16 [History] Sertraline [Zoloft] 50 mg PO DAILY 04/02/16 [History] Memantine [Namenda] 10 mg PO DAILY 05/23/17 [History] Lisinopril [Zestril] 20 mg PO DAILY #30 tablet 05/25/17 [Rx] amLODIPine [Norvasc] 10 mg PO DAILY #60 tablet 05/25/17 [Rx] Allergy/AdvReac Type Severity Reaction Status Date / Time No Known Allergies Allergy Verified 08/11/18 03:37 Social History - Social History Social History: Bryant Ferguson. First and her remarried about 20 years ago per . Has 3 children from first marriage and 3 step children. Retired 18 years ago. Owned own business as contractor. stated he stopped driving a few years ago due to safety issues. Cognitive/Emotional Assessment - Cognitive Ability Attention Span Ability: Unable to Focus, Unable to Sustain Attention Problem Solving Ability: Unable To Solve Simple Problems Level of Alertness: Lethargic Memory Description: Recent Impaired Orientation: Person, Place, Age, Date of Ability to Follow Directions: Poor/Unable Speech Pattern: Delayed Thought Process: Slowed Thinking Additional Findings: Unresponsive first 25 min of session thus discussed his past mental health and current issues with . He just stared at me until last 5 mintes then he engaged and asked questions of me and responded to simple fact based questions - person, place, age. - Emotional Status Mood Description: Depressed Affect Description: Flat Coping Ability: Inability to cope effectively Additional Findings: He has been variable with "good" days and "bad" days - inconsistent. Assessment & Plan - Prognosis Prognosis: Fair - Treatment Plan Treatment Plan/Recommendations: Will follow and monitor mood and cognition. Discussed antidepressant with physician at team meeting. Treatment Frequency: Will see weekly while inpatient. Next Session Date: 09/01/18 Procedures - Participants Therapy Participant: Patient, Family - Session Time Session Start Time: 11:00 Session Stop Time: 11:30
[2018-08-26] MEDS: Ipratropium/Albuterol Neb 3 ML IH SCH ×4 (04:00→21:36)
[2018-08-26] MEDS: *HR* Enoxaparin 40 MG/0.4 ML SYRINGE SQ SCH (06:39)
--- NOTE | 2018-08-26 11:47 | Internal Med Progress Note ---
Date of Encounter: 08/26/18 Time of Encounter: 11:45 - Assessment and plan (1) Acute right MCA stroke Current Visit: Yes Status: Acute Assessment and plan: No acute neurological deficits noted on exam. Patient continues with left hemiplegia and left neglect. He also noted to continue to have slight expressive aphasia with word searching during answers and continues to show signs of receptive aphasia, with improved response to visual cueing. Will continue with current therapy, which patient reportedly has been an improvement. We will continue with speech therapy (2) Chronic kidney disease Current Visit: Yes Status: Chronic Assessment and plan: No acute issues. Patient's most recent labs show creatinine 0.92. We will co ntinue to monitor renal status to serial labs and continue with present medications Qualifiers: Chronic kidney disease stage: unspecified stage Qualified Code(s): N18.9 - Chronic kidney disease, unspecified (3) Hypertension Current Visit: Yes Status: Chronic Assessment and plan: Vital signs remained stable and will continue with current medications. Qualifiers: Hypertension type: essential hypertension Qualified Code(s): I10 - Essential (primary) hypertension (4) Dementia Current Visit: Yes Status: Chronic Assessment and plan: No acute issues. No behavior issues reported per nursing. Patient is interacting with staff Qualifiers: Dementia type: unspecified type Dementia behavioral disturbance: with behavioral disturbance Qualified Code(s): F03.91 - Unspecified dementia with behavioral disturbance (5) Coronary artery disease Current Visit: Yes Status: Acute Assessment and plan: Patient has had several incidents of chest discomforts and near syncopal type episodes. No current issues over the past 24 hours reported. We will continue to monitor closely. Patient's vital signs stable. Qualifiers: Coronary Disease-Associated Artery/Lesion type: unspecified vessel or lesion type [place] vs. transplanted heart: [place] heart Associated angina: with stable angina Qualified Code(s): I25.118 - Atherosclerotic heart disease of [place] coronary artery with other forms of angina pectoris - Time Spent With Patient less than 15 minutes - Subjective Interval history: Patient appears relaxed and currently denies any discomforts or shortness of breath. Patient continues to have hesitation during answering most questions and has difficulty answering complex questions. Today patient has been interacting more with staff during exam, but continues with mostly 1-2 word answers to questions. Patient continues to require cuing during instructions in his exam. Nurse reports no issues overnight with no further incidents of chest discomforts or syncopal type symptoms. - Constitutional Vitals: Temp Pulse Resp BP Pulse Ox 97.8 F 72 19 176/89 86 08/26/18 07:00 08/26/18 07:00 08/26/18 09:26 08/26/18 07:00 08/26/18 09:26 General appearance: Present: cooperative, A&O X 2, pleasant, no acute distress, answers questions appropriately Exam: Not to time - Head Head exam: Present: atraumatic, normocephalic - Eye Eye exam: Present: PERRL, conjuntiva pink, sclera anicteric Pupils: Present: PERRL Additional comments: Patient noted to have difficulty visualizing objects on left. - Neck Neck exam general surgery: Present: supple, trachea midline. Absent: lymphadenopathy - Respiratory Respiratory exam: Present: CTAB. Absent: accessory muscle use, rales, rhonchi, wheezes - Cardiovascular Cardiovascular exam: Present: RRR, +S1, +S2. Absent: diastolic murmur, gallop, rubs, systolic murmur - GI/Abdominal GI/Abdominal exam: Present: normal bowel sounds, soft, no peritoneal signs. Absent: distended, tenderness - Extremities Exam Extremities exam: Present: warm, radial pulses palpable and symmetrical. Absent: calf tenderness, cyanotic, pedal edema - Neurological Exam Neurological exam: Present: CN II-XII intact, oriented X3, speech deficit. Absent: pronater drift, facial droop Additional comments: Patient continues with the left neglect. Left visual cut noted during exam. Patient continues with word searching during questioning with most answers be in one to 2 word. Left hemiplegia and right extremity is 5/5 muscle strength. - Skin Skin exam: Present: dry, intact Internal Medicine: Result - Labs CBC & Chem 7: 08/24/18 09:45 08/24/18 09:45 - ABG Interpretation ABG results: ABG ABG pH 7.43 pH Units (7.32-7.45) 08/18/18 10:39 ABG pCO2 30 mmHg (35-45) L 08/18/18 10:39 ABG pO2 78 mmHg (85-104) L 08/18/18 10:39 ABG O2 Saturation 96 % (95-98) 08/18/18 10:39 PT/INR, D-dimer PT 12.7 Seconds (9.4-12.1) H 08/11/18 05:35 Consult Discharge Plan - Plan Referrals: Margo Oliveira, SPECIAL EDUCATION CURRICULUM SPECIALIST [Primary Care Provider] -
[2018-08-26] MEDS: Cholecalciferol (D-3) 1,000 UNIT (25MCG) TABLET PO SCH (14:07)
[2018-08-26] MEDS: Aspirin 81 MG TAB.CHEW PO SCH (14:07)
[2018-08-27] MEDS: Ipratropium/Albuterol Neb 3 ML IH SCH ×4 (04:58→21:44)
[2018-08-27] MEDS: *HR* Enoxaparin 40 MG/0.4 ML SYRINGE SQ SCH (06:17)
--- NOTE | 2018-08-27 09:42 | Internal Med Progress Note ---
Date of Encounter: 08/27/18 Time of Encounter: 09:40 - Assessment and plan (1) Acute right MCA stroke Current Visit: Yes Status: Acute Assessment and plan: No acute neurological deficits noted on exam. Patient continues with left hemiplegia and left neglect. He also noted to continue to have slight expressive aphasia with word searching during answers and continues to show signs of receptive aphasia, with improved response to visual cueing. Will continue with current therapy, which patient reportedly has been an improvement. We will continue with speech therapy (2) Chronic kidney disease Current Visit: Yes Status: Chronic Assessment and plan: No acute issues. Patient's most recent labs show creatinine 0.92. We will co ntinue to monitor renal status to serial labs and continue with present medications Qualifiers: Chronic kidney disease stage: unspecified stage Qualified Code(s): N18.9 - Chronic kidney disease, unspecified (3) Hypertension Current Visit: Yes Status: Chronic Assessment and plan: Vital signs remained stable and will continue with current medications. Qualifiers: Hypertension type: essential hypertension Qualified Code(s): I10 - Essential (primary) hypertension (4) Dementia Current Visit: Yes Status: Chronic Assessment and plan: No acute issues. No behavior issues reported per nursing. Patient is interacting with staff Qualifiers: Dementia type: unspecified type Dementia behavioral disturbance: with behavioral disturbance Qualified Code(s): F03.91 - Unspecified dementia with behavioral disturbance (5) Coronary artery disease Current Visit: Yes Status: Acute Assessment and plan: Patient has had several incidents of chest discomforts and near syncopal type episodes. No current issues over the past 24 hours reported. We will continue to monitor closely. Patient's vital signs stable. Qualifiers: Coronary Disease-Associated Artery/Lesion type: unspecified vessel or lesion type [place] vs. transplanted heart: [place] heart Associated angina: with stable angina Qualified Code(s): I25.118 - Atherosclerotic heart disease of [place] coronary artery with other forms of angina pectoris - Time Spent With Patient less than 15 minutes - Subjective Interval history: Patient appears relaxed and currently denies any discomforts or shortness of breath. Patient continues to have hesitation during answering most questions and has difficulty answering complex questions. Today patient has been interacting more with staff during exam, but continues with mostly 1-2 word answers to questions. Patient continues to require cuing during instructions in his exam. Nurse reports no issues overnight with no further incidents of chest discomforts or syncopal type symptoms. Nurse reports patient slept more last evening and actually stayed on the CPAP for several hours last night. - Constitutional Vitals: Temp Pulse Resp BP Pulse Ox 97.4 F L 97 16 137/90 95 08/26/18 19:28 08/26/18 19:28 08/26/18 19:28 08/26/18 19:28 08/26/18 19:28 General appearance: Present: cooperative, A&O X 2, pleasant, no acute distress, answers questions appropriately - Head Head exam: Present: atraumatic, normocephalic - Eye Eye exam: Present: PERRL, conjuntiva pink, sclera anicteric Pupils: Present: PERRL - Neck Neck exam general surgery: Present: supple, trachea midline. Absent: lymphadenopathy - Respiratory Respiratory exam: Present: decreased breath sounds, CTAB. Absent: accessory muscle use, rales, rhonchi, wheezes - Cardiovascular Cardiovascular exam: Present: RRR, +S1, +S2. Absent: diastolic murmur, gallop, rubs, systolic murmur - GI/Abdominal GI/Abdominal exam: Present: normal bowel sounds, soft, no peritoneal signs. Absent: distended, tenderness - Extremities Exam Extremities exam: Present: warm, radial pulses palpable and symmetrical. Absent: calf tenderness, cyanotic, pedal edema - Neurological Exam Neurological exam: Present: CN II-XII intact, speech deficit. Absent: pronater drift, facial droop Additional comments: Patient continues with left hemiplegia. Muscle strength right extremities at 5/5. Patient continues to show left neglect and left facial droop. Noted visual cut to left eye. Patient noted to continue with word searching and responding to questions with one to 2 word answers. Possible receptive aphasia noted due to patient responding better to visual cueing during directions - Skin Skin exam: Present: dry, intact Internal Medicine: Result - Labs CBC & Chem 7: 08/24/18 09:45 08/24/18 09:45 - ABG Interpretation ABG results: ABG ABG pH 7.43 pH Units (7.32-7.45) 08/18/18 10:39 ABG pCO2 30 mmHg (35-45) L 08/18/18 10:39 ABG pO2 78 mmHg (85-104) L 08/18/18 10:39 ABG O2 Saturation 96 % (95-98) 08/18/18 10:39 PT/INR, D-dimer PT 12.7 Seconds (9.4-12.1) H 08/11/18 05:35 - Impressions Impressions Liver Ultrasound 08/26/18 09:15 IMPRESSION: Neither common bile duct nor the pancreas were identified on this exam secondary to intervening bowel gas. Otherwise unremarkable exam. No intrahepatic biliary ductal dilatation is seen. D/ / 08/26/2018 13:47:52 Alvin Perez MD / paige Interpreting Provider: Alvin Perez MD Consult Discharge Plan - Plan Referrals: Margo Oliveira, PLASTER MAKER [Primary Care Provider] -
[2018-08-27] MEDS: Cholecalciferol (D-3) 1,000 UNIT (25MCG) TABLET PO SCH (10:37)
[2018-08-27] MEDS: Aspirin 81 MG TAB.CHEW PO SCH (10:37)
[2018-08-27] MEDS: Acetaminophen 325 MG TABLET PO PRN (22:19)
[2018-08-28] MEDS: Ipratropium/Albuterol Neb 3 ML IH SCH ×4 (03:51→20:27)
[2018-08-28] MEDS: *HR* Enoxaparin 40 MG/0.4 ML SYRINGE SQ SCH (05:29)
[2018-08-28] MEDS: Cholecalciferol (D-3) 1,000 UNIT (25MCG) TABLET PO SCH (10:38)
[2018-08-28] MEDS: Aspirin 81 MG TAB.CHEW PO SCH (10:41)
--- NOTE | 2018-08-28 10:44 | Internal Med Progress Note ---
Date of Encounter: 08/28/18 Time of Encounter: 10:42 - Assessment and plan (1) Dementia Current Visit: Yes Status: Chronic Assessment and plan: seems to be doing fine some times forgets about his loved one doesn't recognize his today aware of himself and surrounding no other issues at the present time Qualifiers: Dementia type: unspecified type Dementia behavioral disturbance: without behavioral disturbance Qualified Code(s): F03.90 - Unspecified dementia without behavioral disturbance (2) Acute right MCA stroke Current Visit: Yes Status: Acute Assessment and plan: left side complete paralysis with facial deviation stable getting rehab (3) Coronary artery disease Current Visit: Yes Status: Chronic Assessment and plan: stable on meds continue to follow Qualifiers: Coronary Disease-Associated Artery/Lesion type: [place] artery [place] vs. transplanted heart: [place] heart Associated angina: without angina Qualified Code(s): I25.10 - Atherosclerotic heart disease of [place] coronary artery without angina pectoris - Subjective Interval history: Cross coverage . s/p CBA no acute issues ignores eft side [place] any chest any cough fever or chills overall feels as before . Knew about himself and his wareabouts - Constitutional Vitals: Temp Pulse Resp BP Pulse Ox 98.4 F 95 16 158/95 98 08/27/18 19:09 08/27/18 19:09 08/28/18 03:53 08/27/18 19:09 08/28/18 03:53 General appearance: Present: cooperative, A&O X 2, pleasant, no acute distress, answers questions appropriately - Head Head exam: Present: atraumatic - Eye Eye exam: Present: EOMI, PERRL. Absent: scleral icterus Pupils: Present: PERRL - Neck Neck exam general surgery: Present: full ROM, supple. Absent: tenderness, nuchal rigidity, thyromegaly - Respiratory Respiratory exam: Present: CTAB. Absent: chest wall tenderness, decreased breath sounds, respiratory distress, rhonchi, stridor, wheezes, tachypnea - Cardiovascular Cardiovascular exam: Present: RRR, +S1, +S2. Absent: irregular rhythm, JVD, systolic murmur - GI/Abdominal GI/Abdominal exam: Present: normal bowel sounds, soft. Absent: distended, guarding, rigid - Extremities Exam Extremities exam: Absent: pedal edema, tenderness - Neurological Exam Neurological exam: Present: alert, facial droop Additional comments: left ignore, left side upper and lower complete paralysis , left face deviation speech clear tongue deviation left side Internal Medicine: Result - Labs CBC & Chem 7: 08/24/18 09:45 08/24/18 09:45 - ABG Interpretation ABG results: ABG ABG pH 7.43 pH Units (7.32-7.45) 08/18/18 10:39 ABG pCO2 30 mmHg (35-45) L 08/18/18 10:39 ABG pO2 78 mmHg (85-104) L 08/18/18 10:39 ABG O2 Saturation 96 % (95-98) 08/18/18 10:39 PT/INR, D-dimer PT 12.7 Seconds (9.4-12.1) H 08/11/18 05:35 Consult Discharge Plan - Plan Referrals: Margo Oliveira, FUR CLIPPER [Primary Care Provider] -
[2018-08-28] MEDS: cloNIDine HCl 0.1 MG TABLET PO PRN (17:15)
[2018-08-29] MEDS: Ipratropium/Albuterol Neb 3 ML IH SCH ×4 (04:16→21:08)
[2018-08-29] MEDS: *HR* Enoxaparin 40 MG/0.4 ML SYRINGE SQ SCH (05:27)
[2018-08-29] MEDS: Cholecalciferol (D-3) 1,000 UNIT (25MCG) TABLET PO SCH (10:29)
[2018-08-29] MEDS: Aspirin 81 MG TAB.CHEW PO SCH (10:29)
--- NOTE | 2018-08-29 10:30 | Internal Med Progress Note ---
Date of Encounter: 08/29/18 Time of Encounter: 10:28 - Assessment and plan (1) Dementia Current Visit: Yes Status: Chronic Assessment and plan: seems to be doing fine on meds . continue to provide supportive care Qualifiers: Dementia type: unspecified type Dementia behavioral disturbance: without behavioral disturbance Qualified Code(s): F03.90 - Unspecified dementia without behavioral disturbance (2) Acute right MCA stroke Current Visit: Yes Status: Acute Assessment and plan: left side complete paralysis with facial deviation stable getting rehab . No new change , getting someIV fludin due to poor intake Labs are pending tomorrow we could stop his IV fluid if sodium continues to be low (3) Coronary artery disease Current Visit: Yes Status: Chronic Assessment and plan: stable on meds continue to follow no new changes Qualifiers: Coronary Disease-Associated Artery/Lesion type: [place] artery [place] vs. transplanted heart: [place] heart Associated angina: without angina Qualified Code(s): I25.10 - Atherosclerotic heart disease of [place] coronary artery without angina pectoris (4) Hyponatremia Current Visit: Yes Status: Acute Assessment and plan: noted to have low sodium needs followup labs have been ordered for the morning and if still low sodium further workup should be done including stopping his IV as he doesn't seems to be dehydrated - Subjective Interval history: Cross coverage . s/p CBA no acute issues ignores left side denies any chest any cough fever or chills overall feels as before . Short term memory is poor didn't recall who visited him yesterday . Not drinking fluid as he should othersie feels fine no acute distress - Constitutional Vitals: Temp Pulse Resp BP Pulse Ox 98.1 F 90 16 153/90 95 08/28/18 20:31 08/28/18 20:31 08/28/18 20:31 08/28/18 20:31 08/28/18 20:31 General appearance: Present: cooperative, A&O X 2, morbidly obese, pleasant, no acute distress, answers questions appropriately Exam: left side neglect - Head Head exam: Present: atraumatic - Eye Eye exam: Present: EOMI, PERRL. Absent: scleral icterus Pupils: Present: PERRL - Neck Neck exam general surgery: Present: full ROM, supple. Absent: tenderness, nuchal rigidity - Respiratory Respiratory exam: Present: CTAB. Absent: chest wall tenderness, decreased breath sounds, respiratory distress, rhonchi, stridor, wheezes, tachypnea - Cardiovascular Cardiovascular exam: Present: RRR, +S1, +S2. Absent: irregular rhythm, JVD - GI/Abdominal GI/Abdominal exam: Present: normal bowel sounds, soft. Absent: distended, guarding, rebound, rigid - Extremities Exam Extremities exam: Absent: pedal edema, tenderness - Neurological Exam Neurological exam: Present: alert, facial droop. Absent: speech deficit Additional comments: left side paralysis both upper and lower fascial deviation memory is poor moderate dementia Internal Medicine: Result - Labs CBC & Chem 7: 08/24/18 09:45 08/24/18 09:45 - ABG Interpretation ABG results: ABG ABG pH 7.43 pH Units (7.32-7.45) 08/18/18 10:39 ABG pCO2 30 mmHg (35-45) L 08/18/18 10:39 ABG pO2 78 mmHg (85-104) L 08/18/18 10:39 ABG O2 Saturation 96 % (95-98) 08/18/18 10:39 PT/INR, D-dimer PT 12.7 Seconds (9.4-12.1) H 08/11/18 05:35 Consult Discharge Plan - Plan Referrals: Margo Oliveira, COUNSELING DEPARTMENT CHAIR [Primary Care Provider] -
[2018-08-30] MEDS: Ipratropium/Albuterol Neb 3 ML IH SCH ×2 (04:33→10:01)
[2018-08-30] MEDS: *HR* Enoxaparin 40 MG/0.4 ML SYRINGE SQ SCH (05:54)
[2018-08-30 06:27] LABS: BUN/Creatinine Ratio 18 (6-26); Blood Urea Nitrogen 14 mg/dL (8-23); Calcium 8.4 mg/dL (8.6-10.3); Carbon Dioxide 25 mEq/L (23-29); Chloride 104 mEq/L (98-107); Glucose 103 mg/dL (70-105); Osmolality,Calculated 283 (280-300); Potassium 3.5 mEq/L (3.5-5.1); Sodium 136 mEq/L (136-145); eGFR For African Americans > 60 (> 60); eGFR For Non-African Americans > 60 (> 60)
--- NOTE | 2018-08-30 08:42 | Internal Med Progress Note ---
Date of Encounter: 08/30/18 Time of Encounter: 08:40 - Assessment and plan (1) Acute right MCA stroke Current Visit: Yes Status: Acute Assessment and plan: Continue PT and OT and ST. Will follow progress. No new neurological deficits at this time. Follow up with neurology as scheduled. Has left hemiparesis, visual cut, dysphagia and agnosia, and receptive aphasia. (2) Hypertension Current Visit: Yes Status: Chronic Assessment and plan: Controlled with current medication. Monitor blood pressure. Qualifiers: Hypertension type: essential hypertension Qualified Code(s): I10 - Essential (primary) hypertension (3) Dementia Current Visit: Yes Status: Chronic Assessment and plan: Progressive disease. Continue supportive care. Increased risk for follows, dehydration, malnutrition, skin breakdown and pneumonia Qualifiers: Dementia type: unspecified type Dementia behavioral disturbance: without behavioral disturbance Qualified Code(s): F03.90 - Unspecified dementia without behavioral disturbance (4) Chronic kidney disease Current Visit: Yes Status: Chronic Assessment and plan: Stable. Follow labs. Avoid nephrotoxic agents. Qualifiers: Chronic kidney disease stage: unspecified stage Qualified Code(s): N18.9 - Chronic kidney disease, unspecified (5) Dysphagia Current Visit: Yes Status: Acute Assessment and plan: Continue mechanical altered diet with thin liquids. Up for meals with supervision. Monitor for pocketing and left cheek. Encourage to chew on right side. Oral care after all meals. Continue speech therapy. Will follow progress. Qualifiers: Dysphagia type: unspecified Qualified Code(s): R13.10 - Dysphagia, unspecified - Time Spent With Patient less than 15 minutes - Subjective Interval history: Participating with therapy. Currently resting in bed. Denies any complaints at this time. Max assist times 2 to transfer from bed to wheelchair. Maintaining appetite. No new neurological deficits at this time. Providing rest breaks and allowing him to sleep in until 10 AM. - Constitutional Vitals: Temp Pulse Resp BP Pulse Ox 98 F 80 16 158/93 94 08/29/18 19:45 08/29/18 19:45 08/29/18 19:45 08/29/18 19:45 08/29/18 19:45 General appearance: Present: cooperative, A&O X 2, morbidly obese, pleasant, no acute distress, answers questions appropriately Exam: MODOC with aids left visual field cut - Head Head exam: Present: atraumatic, normocephalic - Eye Eye exam: Present: PERRL, conjuntiva pink, sclera anicteric Pupils: Present: PERRL - Neck Neck exam general surgery: Present: supple, trachea midline. Absent: ly mphadenopathy - Respiratory Respiratory exam: Present: CTAB. Absent: accessory muscle use, rales, rhonchi, wheezes - Cardiovascular Cardiovascular exam: Present: RRR, +S1, +S2. Absent: diastolic murmur, gallop, rubs, systolic murmur - GI/Abdominal GI/Abdominal exam: Present: normal bowel sounds, soft, no peritoneal signs. Absent: distended, tenderness - Extremities Exam Extremities exam: Present: warm, radial pulses palpable and symmetrical. Absent: calf tenderness, cyanotic, pedal edema Additional comments: left hemiparesis - Neurological Exam Neurological exam: Present: alert, CN II-XII intact, no focal deficits. Absent: pronater drift, facial droop, speech deficit Additional comments: A&O X2 - Skin Skin exam: Present: dry, intact Internal Medicine: Result - Labs CBC & Chem 7: 08/24/18 09:45 08/30/18 04:45 Labs: BMP 08/30/18 04:45 Sodium 136 Potassium 3.5 Chloride 104 Carbon Dioxide 25 BUN 14 Creatinine 0.79 Glucose 103 Calcium 8.4 L - ABG Interpretation ABG results: ABG ABG pH 7.43 pH Units (7.32-7.45) 08/18/18 10:39 ABG pCO2 30 mmHg (35-45) L 08/18/18 10:39 ABG pO2 78 mmHg (85-104) L 08/18/18 10:39 ABG O2 Saturation 96 % (95-98) 08/18/18 10:39 PT/INR, D-dimer PT 12.7 Seconds (9.4-12.1) H 08/11/18 05:35 Consult Discharge Plan - Plan Referrals: Margo Oliveira, SLITTER CREASER SLOTTER OPERATOR [Primary Care Provider] -
[2018-08-30] MEDS: Aspirin 81 MG TAB.CHEW PO SCH (10:43)
[2018-08-30] MEDS: Cholecalciferol (D-3) 1,000 UNIT (25MCG) TABLET PO SCH (10:43)
[2018-08-30] MEDS ORDERED: Ipratropium/Albuterol Neb 3 ML IH PRN (11:34)
[2018-08-30] MEDS: Acetaminophen 325 MG TABLET PO PRN (21:17)
[2018-08-31] MEDS: *HR* Enoxaparin 40 MG/0.4 ML SYRINGE SQ SCH (06:13)
[2018-08-31] MEDS: Cholecalciferol (D-3) 1,000 UNIT (25MCG) TABLET PO SCH (08:25)
[2018-08-31] MEDS: Aspirin 81 MG TAB.CHEW PO SCH (08:25)
[2018-08-31 09:10] LABS: Basophils % 0.4 %; Eosinophils # 0.3 K/mcL (0.0-0.6); Eosinophils % 5.7 %; Hematocrit 40.3 % (37.5-50.1); Immature Granulocytes % 0.2 % (0-4); Lymphocytes # 0.6 K/mcL (0.6-4.6); Lymphocytes % 12.6 %; Mean Corpuscular HGB Conc 32.3 g/dL (31.6-35.5); Mean Corpuscular Hemoglobin 27.4 pg (28.0-33.3); Mean Corpuscular Volume 84.8 fL (83.0-100.0); Mean Platelet Volume 9.9 fL (9.4-12.4); Monocytes # 0.2 K/mcL (0.0-1.3); Monocytes % 4.7 %; Neutrophils # 3.6 K/mcL (1.6-8.9); Platelet Count 186 K/mcL (140-400); Red Blood Count 4.75 M/mcL (4.19-5.50); Segmented Neutrophils % 76.4 %; White Blood Count 4.7 K/mcL (4.3-11.1)
[2018-08-31 09:37] LABS: Anisocytosis 1+ (Not Present)
--- NOTE | 2018-08-31 12:42 | Internal Med Progress Note ---
Date of Encounter: 08/31/18 Time of Encounter: 12:40 - Assessment and plan (1) Acute right MCA stroke Current Visit: Yes Status: Acute Assessment and plan: Continue PT and OT and ST. Will follow progress. No new neurological deficits at this time. Follow up with neurology as scheduled. Has left hemiparesis, visual cut, dysphagia and agnosia, and receptive aphasia. (2) Hypertension Current Visit: Yes Status: Chronic Assessment and plan: Controlled with current medication. Monitor blood pressure. Qualifiers: Hypertension type: essential hypertension Qualified Code(s): I10 - Essential (primary) hypertension (3) Dementia Current Visit: Yes Status: Chronic Assessment and plan: Progressive disease. Continue supportive care. Increased risk for follows, dehydration, malnutrition, skin breakdown and pneumonia Qualifiers: Dementia type: unspecified type Dementia behavioral disturbance: without behavioral disturbance Qualified Code(s): F03.90 - Unspecified dementia without behavioral disturbance (4) Chronic kidney disease Current Visit: Yes Status: Chronic Assessment and plan: Stable. Follow labs. Avoid nephrotoxic agents. Qualifiers: Chronic kidney disease stage: unspecified stage Qualified Code(s): N18.9 - Chronic kidney disease, unspecified (5) Dysphagia Current Visit: Yes Status: Acute Assessment and plan: Continue mechanical altered diet with thin liquids. Up for meals with supervision. Monitor for pocketing and left cheek. Encourage to chew on right side. Oral care after all meals. Continue speech therapy. Will follow progress. Qualifiers: Dysphagia type: unspecified Qualified Code(s): R13.10 - Dysphagia, unspecified - Time Spent With Patient less than 15 minutes - Subjective Interval history: Participating with therapy. Currently resting in bed. Denies any complaints at this time. Max assist times 2 to transfer from bed to wheelchair. Maintaining appetite. No new neurological deficits at this time. Was scheduled to see neurology this morning. Apparently patients canceled appointment after transport had already arrived. - Constitutional Vitals: Temp Pulse Resp BP Pulse Ox 98.6 F 69 16 173/83 97 08/31/18 07:37 08/31/18 07:37 08/31/18 07:37 08/31/18 07:37 08/31/18 07:37 General appearance: Present: cooperative, A&O X 2, morbidly obese, pleasant, no acute distress, answers questions appropriately Exam: left facial droop - Head Head exam: Present: atraumatic, normocephalic - Eye Eye exam: Present: PERRL, conjuntiva pink, sclera anicteric Pupils: Present: PERRL - Neck Neck exam general surgery: Present: supple, trachea midline. Absent: lymphadenopathy - Respiratory Respiratory exam: Present: CTAB. Absent: accessory muscle use, rales, rhonchi, wheezes - Cardiovascular Cardiovascular exam: Present: RRR, +S1, +S2. Absent: diastolic murmur, gallop, rubs, systolic murmur - GI/Abdominal GI/Abdominal exam: Present: normal bowel sounds, soft, no peritoneal signs. Absent: distended, tenderness - Extremities Exam Extremities exam: Present: warm, radial pulses palpable and symmetrical. Absent: calf tenderness, cyanotic, pedal edema Additional comments: left hemiparesis - Neurological Exam Neurological exam: Present: CN II-XII intact, oriented X3, no focal deficits. Absent: pronater drift, facial droop, speech deficit - Skin Skin exam: Present: dry, intact Internal Medicine: Result - Labs CBC & Chem 7: 08/31/18 08:57 08/30/18 04:45 Labs: Short CBC 08/31/18 Range/Units 08:57 WBC 4.7 (4.3-11.1) K/mcL Hgb 13.0 (12.9-16.9) g/dL Hct 40.3 (37.5-50.1) % Plt Count 186 (140-400) K/mcL Neutrophils # 3.6 (1.6-8.9) K/mcL - ABG Interpretation ABG results: ABG ABG pH 7.43 pH Units (7.32-7.45) 08/18/18 10:39 ABG pCO2 30 mmHg (35-45) L 08/18/18 10:39 ABG pO2 78 mmHg (85-104) L 08/18/18 10:39 ABG O2 Saturation 96 % (95-98) 08/18/18 10:39 PT/INR, D-dimer PT 12.7 Seconds (9.4-12.1) H 08/11/18 05:35 Consult Discharge Plan - Plan Referrals: Margo Oliveira, TREE FELLER OPERATOR [Primary Care Provider] -
[2018-09-01] MEDS: *HR* Enoxaparin 40 MG/0.4 ML SYRINGE SQ SCH (05:29)
--- NOTE | 2018-09-01 09:15 | Internal Med Progress Note ---
Date of Encounter: 09/01/18 Time of Encounter: 09:10 - Assessment and plan (1) Acute right MCA stroke Current Visit: Yes Status: Acute Assessment and plan: Continue PT and OT and ST. Will follow progress. No new neurological deficits at this time. Follow up with neurology as scheduled. Has left hemiparesis, visual cut, dysphagia and agnosia, and receptive aphasia. (2) Hypertension Current Visit: Yes Status: Chronic Assessment and plan: Controlled with current medication. Monitor blood pressure. Qualifiers: Hypertension type: essential hypertension Qualified Code(s): I10 - Essential (primary) hypertension (3) Dementia Current Visit: Yes Status: Chronic Assessment and plan: Progressive disease. Continue supportive care. Increased risk for follows, dehydration, malnutrition, skin breakdown and pneumonia Qualifiers: Dementia type: unspecified type Dementia behavioral disturbance: without behavioral disturbance Qualified Code(s): F03.90 - Unspecified dementia without behavioral disturbance (4) Chronic kidney disease Current Visit: Yes Status: Chronic Qualifiers: Chronic kidney disease stage: unspecified stage Qualified Code(s): N18.9 - Chronic kidney disease, unspecified (5) Dysphagia Current Visit: Yes Status: Acute Qualifiers: Dysphagia type: unspecified Qualified Code(s): R13.10 - Dysphagia, unspecified - Subjective Interval history: Participating with therapy. sitting in [facility], eating with ST. Denies any complaints at this time. Max assist times 2 to transfer from bed to wheelchair. Maintaining appetite. No new neurological deficits at this time. low grade fever this am. will monitor. - Constitutional Vitals: Temp Pulse Resp BP Pulse Ox 100.1 F H 83 16 161/97 98 08/31/18 19:40 08/31/18 19:40 08/31/18 19:40 08/31/18 19:40 08/31/18 19:40 General appearance: Present: cooperative, A&O X 2, morbidly obese, pleasant, no acute distress, answers questions appropriately Exam: Left facial droop, slight slurred speech, hard of hearing - Head Head exam: Present: atraumatic, normocephalic - Eye Eye exam: Present: PERRL, conjuntiva pink, sclera anicteric Pupils: Present: PERRL - Neck Neck exam general surgery: Present: supple, trachea midline. Absent: lymphadenopathy - Respiratory Respiratory exam: Present: CTAB. Absent: accessory muscle use, rales, rhonchi, wheezes - Cardiovascular Cardiovascular exam: Present: RRR, +S1, +S2. Absent: diastolic murmur, gallop, rubs, systolic murmur - GI/Abdominal GI/Abdominal exam: Present: normal bowel sounds, soft, no peritoneal signs. Abs ent: distended, tenderness - Extremities Exam Extremities exam: Present: warm, radial pulses palpable and symmetrical. Absent: calf tenderness, cyanotic, pedal edema Additional comments: left hemiplegia - Neurological Exam Neurological exam: Present: CN II-XII intact, oriented X3, no focal deficits. Absent: pronater drift, facial droop, speech deficit - Skin Skin exam: Present: dry, intact Internal Medicine: Result - Labs CBC & Chem 7: 08/31/18 08:57 08/30/18 04:45 Labs: Short CBC 08/31/18 Range/Units 08:57 WBC 4.7 (4.3-11.1) K/mcL Hgb 13.0 (12.9-16.9) g/dL Hct 40.3 (37.5-50.1) % Plt Count 186 (140-400) K/mcL Neutrophils # 3.6 (1.6-8.9) K/mcL - ABG Interpretation ABG results: ABG ABG pH 7.43 pH Units (7.32-7.45) 08/18/18 10:39 ABG pCO2 30 mmHg (35-45) L 08/18/18 10:39 ABG pO2 78 mmHg (85-104) L 08/18/18 10:39 ABG O2 Saturation 96 % (95-98) 08/18/18 10:39 PT/INR, D-dimer PT 12.7 Seconds (9.4-12.1) H 08/11/18 05:35 Consult Discharge Plan - Plan Referrals: Margo Oliveira, INTAKE CLINICIAN [Primary Care Provider] -
[2018-09-01] MEDS: Aspirin 81 MG TAB.CHEW PO SCH (09:18)
[2018-09-01] MEDS: Cholecalciferol (D-3) 1,000 UNIT (25MCG) TABLET PO SCH (09:18)
[2018-09-02] MEDS: *HR* Enoxaparin 40 MG/0.4 ML SYRINGE SQ SCH (05:28)
[2018-09-02] MEDS: Cholecalciferol (D-3) 1,000 UNIT (25MCG) TABLET PO SCH (10:28)
[2018-09-02] MEDS: Aspirin 81 MG TAB.CHEW PO SCH (10:28)
--- NOTE | 2018-09-02 10:55 | Internal Med Progress Note ---
Date of Encounter: 09/02/18 Time of Encounter: 10:52 - Assessment and plan (1) Acute right MCA stroke Current Visit: Yes Status: Acute Assessment and plan: No acute neurological deficits noted on exam. Patient continues with left hemiplegia and left neglect. He also noted to continue to have slight expressive aphasia with word searching during answers, but his sentence structure has improved over the past week. He continues to show signs of receptive aphasia, with improved response to visual cueing. Will continue with current therapy, which patient reportedly has been an improvement. We will continue with speech therapy (2) Chronic kidney disease Current Visit: Yes Status: Chronic Assessment and plan: No acute issues. Patient's most recent labs show creatinine 0.79. We will continue to monitor renal status to serial labs and continue with present medications Qualifiers: Chronic kidney disease stage: unspecified stage Qualified Code(s): N18.9 - Chronic kidney disease, unspecified (3) Hypertension Current Visit: Yes Status: Chronic Assessment and plan: Vital signs remained stable and will continue with current medications. Qualifiers: Hypertension type: essential hypertension Qualified Code(s): I10 - Essential (primary) hypertension (4) Dementia Current Visit: Yes Status: Chronic Assessment and plan: Patient continues to have some confusion, especially at night where he reportedly keeps removing his CPAP mask. Patient noted to continue to require reinforcement per nursing and therapy. No behavior issues reported Qualifiers: Dementia type: unspecified type Dementia behavioral disturbance: without behavioral disturbance Qualified Code(s): F03.90 - Unspecified dementia without behavioral disturbance (5) Coronary artery disease Current Visit: Yes Status: Chronic Assessment and plan: Patient has had several incidents of chest discomforts and near syncopal type episodes during earlier weeks. No current issues over the past 24 hours reported. We will continue to monitor closely. Patient's vital signs stable. Qualifiers: Coronary Disease-Associated Artery/Lesion type: [place] artery [place] vs. transplanted heart: [place] heart Associated angina: without angina Qualified Code(s): I25.10 - Atherosclerotic heart disease of [place] coronary artery without angina pectoris - Time Spent With Patient less than 15 minutes - Subjective Interval history: Patient appears relaxed and currently denies any discomforts or shortness of b reath. Patient continues to have hesitation with answering those questions but noted to have had an improvement of the complexity of his sentences. Nurse reports patient continues to wear her CPAP at night with his length abuse increasing over the past several days. - Constitutional Vitals: Temp Pulse Resp BP Pulse Ox 98.3 F 100 14 121/74 98 09/01/18 19:24 09/01/18 19:24 09/01/18 22:27 09/01/18 19:24 09/01/18 22:27 General appearance: Present: cooperative, A&O X 2, morbidly obese, pleasant, no acute distress, answers questions appropriately Exam: Patient continues with occasional confusion with reports that he continues to remove his CPAP mask at night and requires continued reinforcement and cuing during therapy. - Head Head exam: Present: atraumatic, normocephalic - Eye Eye exam: Present: PERRL, conjuntiva pink, sclera anicteric Pupils: Present: PERRL - Neck Neck exam general surgery: Present: supple, trachea midline. Absent: lymphadenopathy - Respiratory Respiratory exam: Present: decreased breath sounds, CTAB. Absent: accessory muscle use, rales, rhonchi, wheezes - Cardiovascular Cardiovascular exam: Present: RRR, +S1, +S2. Absent: diastolic murmur, gallop, rubs, systolic murmur - GI/Abdominal GI/Abdominal exam: Present: normal bowel sounds, soft, no peritoneal signs. Absent: distended, tenderness - Extremities Exam Extremities exam: Present: warm, radial pulses palpable and symmetrical. Absent: calf tenderness, cyanotic, pedal edema - Neurological Exam Neurological exam: Present: CN II-XII intact, facial droop. Absent: pronater drift, speech deficit Additional comments: Patient continues with left hemiplegia. Left neglect continues but appears to be somewhat improving. Also continued left facial droop. - Skin Skin exam: Present: dry, intact Internal Medicine: Result - Labs CBC & Chem 7: 08/31/18 08:57 08/30/18 04:45 - ABG Interpretation ABG results: ABG ABG pH 7.43 pH Units (7.32-7.45) 08/18/18 10:39 ABG pCO2 30 mmHg (35-45) L 08/18/18 10:39 ABG pO2 78 mmHg (85-104) L 08/18/18 10:39 ABG O2 Saturation 96 % (95-98) 08/18/18 10:39 PT/INR, D-dimer PT 12.7 Seconds (9.4-12.1) H 08/11/18 05:35 - Impressions Impressions Chest X-Ray 09/01/18 10:03 IMPRESSION: No acute pneumonia. D/ / 09/01/2018 10:53:39 Christopher Mccray MD / paige Interpreting Provider: Christopher Mccray MD Consult Discharge Plan - Plan Referrals: Margo Oliveira, INDUSTRIAL SPRAYPAINTER [Primary Care Provider] -
[2018-09-03] MEDS: *HR* Enoxaparin 40 MG/0.4 ML SYRINGE SQ SCH (05:26)
[2018-09-03] MEDS: Cholecalciferol (D-3) 1,000 UNIT (25MCG) TABLET PO SCH (08:02)
[2018-09-03] MEDS: Acetaminophen 325 MG TABLET PO PRN (08:02)
[2018-09-03] MEDS: cloNIDine HCl 0.1 MG TABLET PO PRN (08:02)
[2018-09-03] MEDS: Aspirin 81 MG TAB.CHEW PO SCH (08:02)
--- NOTE | 2018-09-03 10:41 | Internal Med Progress Note ---
Date of Encounter: 09/03/18 Time of Encounter: 10:39 - Assessment and plan (1) Acute right MCA stroke Current Visit: Yes Status: Acute Assessment and plan: No acute neurological deficits noted on exam. Patient continues with left hemiplegia and left neglect. He also noted to continue to have slight expressive aphasia with word searching during answers, but his sentence structure has improved over the past week. He continues to show signs of receptive aphasia, with improved response to visual cueing. Will continue with current therapy, which patient reportedly has been an improvement. We will continue with speech therapy (2) Chronic kidney disease Current Visit: Yes Status: Chronic Assessment and plan: No acute issues. Patient's most recent labs show creatinine 0.79. We will continue to monitor renal status to serial labs and continue with present medications Qualifiers: Chronic kidney disease stage: unspecified stage Qualified Code(s): N18.9 - Chronic kidney disease, unspecified (3) Hypertension Current Visit: Yes Status: Chronic Assessment and plan: Vital signs remained stable and will continue with current medications. Qualifiers: Hypertension type: essential hypertension Qualified Code(s): I10 - Essential (primary) hypertension (4) Dementia Current Visit: Yes Status: Chronic Assessment and plan: Patient continues to have some confusion, especially at night where he reportedly keeps removing his CPAP mask. Patient noted to continue to require reinforcement per nursing for ADLs and therapy. No behavior issues reported Qualifiers: Dementia type: unspecified type Dementia behavioral disturbance: without behavioral disturbance Qualified Code(s): F03.90 - Unspecified dementia without behavioral disturbance (5) Coronary artery disease Current Visit: Yes Status: Chronic Assessment and plan: Patient has had several incidents of chest discomforts and near syncopal type episodes during earlier weeks. No current issues over the past 24 hours reported. We will continue to monitor closely. Patient's vital signs stable. Qualifiers: Coronary Disease-Associated Artery/Lesion type: [place] artery [place] vs. transplanted heart: [place] heart Associated angina: without angina Qualified Code(s): I25.10 - Atherosclerotic heart disease of [place] coronary artery without angina pectoris - Time Spent With Patient less than 15 minutes - Subjective Interval history: Patient appears relaxed and currently denies any discomforts or shortness of breath. Patient continues with some hesitation with answering questions but noted to have had an improvement of the complexity of his sentences. Nurse reports patient continues to wear her CPAP for only short periods of time at night. Patient continues to require reinforcement and cueing during ADLs and therapy - Constitutional Vitals: Temp Pulse Resp BP Pulse Ox 98.5 F 79 18 140/89 95 09/03/18 07:00 09/03/18 07:00 09/03/18 07:00 09/03/18 09:58 09/03/18 07:00 General appearance: Present: cooperative, A&O X 2, morbidly obese, pleasant, no acute distress, answers questions appropriately - Head Head exam: Present: atraumatic, normocephalic - Eye Eye exam: Present: PERRL, conjuntiva pink, sclera anicteric Pupils: Present: PERRL - Neck Neck exam general surgery: Present: supple, trachea midline. Absent: lymphadenopathy - Respiratory Respiratory exam: Present: CTAB. Absent: accessory muscle use, rales, rhonchi, wheezes - Cardiovascular Cardiovascular exam: Present: RRR, +S1, +S2. Absent: diastolic murmur, gallop, rubs, systolic murmur - GI/Abdominal GI/Abdominal exam: Present: normal bowel sounds, soft, no peritoneal signs. Absent: distended, tenderness - Extremities Exam Extremities exam: Present: warm, radial pulses palpable and symmetrical. Absent: calf tenderness, cyanotic, pedal edema - Neurological Exam Neurological exam: Present: CN II-XII intact, oriented X3, facial droop, speech deficit. Absent: pronater drift Additional comments: Continued hemiplegia with left extremities. Continued left neglect. Continues with slight expressive aphasia. - Skin Skin exam: Present: dry, intact Internal Medicine: Result - Labs CBC & Chem 7: 08/31/18 08:57 08/30/18 04:45 - ABG Interpretation ABG results: ABG ABG pH 7.43 pH Units (7.32-7.45) 08/18/18 10:39 ABG pCO2 30 mmHg (35-45) L 08/18/18 10:39 ABG pO2 78 mmHg (85-104) L 08/18/18 10:39 ABG O2 Saturation 96 % (95-98) 08/18/18 10:39 PT/INR, D-dimer PT 12.7 Seconds (9.4-12.1) H 08/11/18 05:35 Consult Discharge Plan - Plan Referrals: Margo Oliveira CNP [Primary Care Provider] - Ahsan Farris MD [Partnered Physician] - 09/14/18 11:30 am
[2018-09-04] MEDS: *HR* Enoxaparin 40 MG/0.4 ML SYRINGE SQ SCH (05:12)
[2018-09-04] MEDS: Acetaminophen 325 MG TABLET PO PRN (10:32)
[2018-09-04] MEDS: Aspirin 81 MG TAB.CHEW PO SCH (10:34)
[2018-09-04] MEDS: Cholecalciferol (D-3) 1,000 UNIT (25MCG) TABLET PO SCH (10:34)
[2018-09-04] MEDS: cloNIDine HCl 0.1 MG TABLET PO PRN (10:34)
--- NOTE | 2018-09-04 12:05 | Internal Med Progress Note ---
Date of Encounter: 09/04/18 Time of Encounter: 11:00 - Assessment and plan (1) Acute right MCA stroke Current Visit: Yes Status: Acute Assessment and plan: Clinically stable with dense left hemiparesis, as before. (2) Dementia Current Visit: Yes Status: Chronic Assessment and plan: Stable to improved. Qualifiers: Dementia type: unspecified type Dementia behavioral disturbance: without behavioral disturbance Qualified Code(s): F03.90 - Unspecified dementia without behavioral disturbance (3) Hypertension Current Visit: Yes Status: Chronic Assessment and plan: This is worse in the morning. I believe this is because of untreated sleep apnea. He has clonidine as needed and we will continue to follow. Qualifiers: Hypertension type: essential hypertension Qualified Code(s): I10 - Essential (primary) hypertension (4) MDD (major depressive disorder) Current Visit: No Status: Acute Assessment and plan: Seems to be improving. Qualifiers: Major depression recurrence: recurrent Active/Remission status: currently active Major depression episode severity: unspecified Qualified Code(s): F33.9 - Major depressive disorder, recurrent, unspecified (5) Metabolic acidosis Current Visit: Yes Status: Acute Assessment and plan: Resolved. (6) Conjunctivitis Current Visit: Yes Status: Acute Assessment and plan: Resolved. Qualifiers: Conjunctivitis type: acute Acute conjunctivitis type: unspecified Laterality: right Qualified Code(s): H10.31 - Unspecified acute conjunctivitis, right eye - Subjective Interval history: Patient is doing fine, eating breakfast, without complaint. He is actually speaking more and more interactive and appropriate than at any point before. I encouraged him to wear a CPAP mask and he states that his right cheek bone hurts when the mask is on. I spoke with nursing and they said they will try to pad. Patient has no complaint of chest discomfort, dyspnea, orthopnea, palpitations, nausea or vomiting, constipation or diarrhea, other changes in bowel habits, difficulty with urination, rash or itching, or other new complaints, except as mentioned above. Review of systems is otherwise negative. I discussed management of her care with nursing staff. Nursing had noted that he frequently takes off his CPAP mask, at night. - Constitutional Vitals: Temp Pulse Resp BP Pulse Ox 98.9 F 95 16 191/92 95 09/04/18 08:22 09/04/18 08:22 09/04/18 08:22 09/04/18 08:22 09/04/18 08:22 Exam: Examination: (Except as mentioned above): He had marked elevation of his blood pressure upon awakening, this morning. It improved as the morning went on. General: In no apparent distress. Alert and oriented 3. Nondiaphoretic. Head: Atraumatic and normocephalic. Respiratory: No use of accessory muscles. Lungs are clear throughout. Normal airflow. Cardiovascular: Regular rate and rhythm without murmur appreciated. Abdomen: Bowel sounds are normal. No hepatosplenomegaly mass or tenderness appreciated. Obese and therefore difficult to palpate deeply. Extremities: No cyanosis clubbing or edema. Skin: Warm and non-diaphoretic with no new lesions noted. Neurologic: Still with dense left hemicolectomy agnosia except he has slight improvement at his dorsiflexion at the left foot. He has an obvious visual field cut and still has facial weakness and speech slurring. Internal Medicine: Result - Labs CBC & Chem 7: 08/31/18 08:57 08/30/18 04:45 - ABG Interpretation ABG results: ABG ABG pH 7.43 pH Units (7.32-7.45) 08/18/18 10:39 ABG pCO2 30 mmHg (35-45) L 08/18/18 10:39 ABG pO2 78 mmHg (85-104) L 08/18/18 10:39 ABG O2 Saturation 96 % (95-98) 08/18/18 10:39 PT/INR, D-dimer PT 12.7 Seconds (9.4-12.1) H 08/11/18 05:35 Consult Discharge Plan - Plan Referrals: Margo Oliveira CNP [Primary Care Provider] - Ahsan Farris MD [Partnered Physician] - 09/14/18 11:30 am
[2018-09-05] MEDS: *HR* Enoxaparin 40 MG/0.4 ML SYRINGE SQ SCH (04:16)
[2018-09-05] MEDS: Aspirin 81 MG TAB.CHEW PO SCH (07:44)
[2018-09-05] MEDS: Acetaminophen 325 MG TABLET PO PRN (07:45)
[2018-09-05] MEDS: Cholecalciferol (D-3) 1,000 UNIT (25MCG) TABLET PO SCH (07:45)
--- NOTE | 2018-09-05 15:08 | Internal Med Progress Note ---
Date of Encounter: 09/05/18 Time of Encounter: 15:08 - Assessment and plan (1) Acute right MCA stroke Current Visit: Yes Status: Acute Assessment and plan: Continue therapies after the holiday weekend. (2) Dementia Current Visit: Yes Status: Chronic Assessment and plan: Stable to improved. Qualifiers: Dementia type: unspecified type Dementia behavioral disturbance: without b ehavioral disturbance Qualified Code(s): F03.90 - Unspecified dementia without behavioral disturbance (3) Hypertension Current Visit: Yes Status: Chronic Assessment and plan: This is worse in the morning. I believe this is because of untreated sleep apnea. He has clonidine as needed and we will continue to follow. Qualifiers: Hypertension type: essential hypertension Qualified Code(s): I10 - Essential (primary) hypertension (4) MDD (major depressive disorder) Current Visit: No Status: Acute Assessment and plan: Seems to be improving. Qualifiers: Major depression recurrence: recurrent Active/Remission status: currently active Major depression episode severity: unspecified Qualified Code(s): F33.9 - Major depressive disorder, recurrent, unspecified (5) Suspected sleep apnea Current Visit: Yes Status: Acute Assessment and plan: We will encourage patient to keep wearing CPAP mask. He will require poly somnogram after discharge. - Subjective Interval history: Nursing notes that he refused to his mask, at all, last night. Patient states that he will try, again tonight. He denies other complaints. Nursing notes that his is concerned about a area of his left elbow but this can only be appreciated when he is bent elbow. I believe this is from lymphedema from disuse. We encouraged elevation and will follow. Patient has no complaint of chest discomfort, dyspnea, orthopnea, palpitations, nausea or vomiting, constipation or diarrhea, other changes in bowel habits, difficulty with urination, rash or itching, or other new complaints, except as mentioned above. Review of systems is otherwise negative. I discussed management of her care with nursing staff. Nursing had noted that he frequently takes off his CPAP mask, at night. - Constitutional Vitals: Temp Pulse Resp BP Pulse Ox 98.1 F 86 14 169/98 95 09/05/18 08:57 09/05/18 08:57 09/05/18 08:57 09/05/18 08:57 09/05/18 08:57 Exam: Examination: (Except as mentioned above): General: In no apparent distress. Alert and oriented 3. Nondiaphoretic. Head: Atraumatic and normocephalic. Respiratory: No use of accessory muscles. Lungs are clear throughout. Normal airflow. Cardiovascular: Regular rate and rhythm without murmur appreciated. Abdomen: Bowel sounds are normal. No hepatosplenomegaly mass or tenderness appreciated. Obese and therefore difficult to palpate deeply. Extremities: No cyanosis clubbing or edema. Skin: Warm and non-diaphoretic with no new lesions noted. Neurologic: Patient still with dense left hemiparesis and left facial droop with the exception of mild or so flexion and left lower extremity. Internal Medicine: Result - Labs CBC & Chem 7: 09/06/18 06:05 09/06/18 06:05 - ABG Interpretation ABG results: ABG ABG pH 7.43 pH Units (7.32-7.45) 08/18/18 10:39 ABG pCO2 30 mmHg (35-45) L 08/18/18 10:39 ABG pO2 78 mmHg (85-104) L 08/18/18 10:39 ABG O2 Saturation 96 % (95-98) 08/18/18 10:39 PT/INR, D-dimer PT 12.7 Seconds (9.4-12.1) H 08/11/18 05:35 Consult Discharge Plan - Plan Referrals: Margo Oliveira CNP [Primary Care Provider] - Ahsan Farris MD [Partnered Physician] - 09/14/18 11:30 am
[2018-09-05] MEDS: cloNIDine HCl 0.1 MG TABLET PO PRN (20:37)
[2018-09-05] MEDS ORDERED: cloNIDine HCl 0.1 MG TABLET PO ONE (22:25)
[2018-09-06] MEDS: Acetaminophen 325 MG TABLET PO PRN (05:12)
[2018-09-06] MEDS: *HR* Enoxaparin 40 MG/0.4 ML SYRINGE SQ SCH (05:12)
[2018-09-06 06:21] LABS: Basophils % 0.4 %; Eosinophils # 0.3 K/mcL (0.0-0.6); Eosinophils % 5.1 %; Hematocrit 31.5 % (37.5-50.1); Hemoglobin 10.3 g/dL (12.9-16.9); Immature Granulocytes % 0.4 % (0-4); Lymphocytes # 0.8 K/mcL (0.6-4.6); Lymphocytes % 15.6 %; Mean Corpuscular HGB Conc 32.7 g/dL (31.6-35.5); Mean Corpuscular Hemoglobin 27.6 pg (28.0-33.3); Mean Corpuscular Volume 84.5 fL (83.0-100.0); Mean Platelet Volume 9.6 fL (9.4-12.4); Monocytes # 0.5 K/mcL (0.0-1.3); Monocytes % 10.2 %; Neutrophils # 3.5 K/mcL (1.6-8.9); Platelet Count 172 K/mcL (140-400); Red Blood Count 3.73 M/mcL (4.19-5.50); Red Cell Distribution Width 14.6 % (11.5-14.5); Segmented Neutrophils % 68.3 %; White Blood Count 5.1 K/mcL (4.3-11.1)
[2018-09-06 06:36] LABS: BUN/Creatinine Ratio 18 (6-26); Blood Urea Nitrogen 14 mg/dL (8-23); Calcium 8.3 mg/dL (8.6-10.3); Carbon Dioxide 27 mEq/L (23-29); Chloride 106 mEq/L (98-107); Glucose 106 mg/dL (70-105); Osmolality,Calculated 285 (280-300); Potassium 3.3 mEq/L (3.5-5.1); Sodium 137 mEq/L (136-145); eGFR For African Americans > 60 (> 60); eGFR For Non-African Americans > 60 (> 60)
[2018-09-06] MEDS: Cholecalciferol (D-3) 1,000 UNIT (25MCG) TABLET PO SCH (08:22)
[2018-09-06] MEDS: Aspirin 81 MG TAB.CHEW PO SCH (08:22)
--- NOTE | 2018-09-06 12:26 | Internal Med Progress Note ---
Date of Encounter: 09/06/18 Time of Encounter: 12:24 - Assessment and plan (1) Acute right MCA stroke Current Visit: Yes Status: Acute Assessment and plan: Patient continues some improvement. However, he has fairly dense hemiparesis on the left. He is to resume therapy tomorrow, after the holiday. (2) Dementia Current Visit: Yes Status: Chronic Assessment and plan: Stable to improved. Qualifiers: Dementia type: unspecified type Dementia behavioral disturbance: without be havioral disturbance Qualified Code(s): F03.90 - Unspecified dementia without behavioral disturbance (3) Hypertension Current Visit: Yes Status: Chronic Assessment and plan: This is worse in the morning. I believe this is because of untreated sleep apnea. He has clonidine as needed and we will continue to follow. Qualifiers: Hypertension type: essential hypertension Qualified Code(s): I10 - Essential (primary) hypertension (4) MDD (major depressive disorder) Current Visit: No Status: Acute Qualifiers: Major depression recurrence: recurrent Active/Remission status: currently active Major depression episode severity: unspecified Qualified Code(s): F33.9 - Major depressive disorder, recurrent, unspecified (5) Suspected sleep apnea Current Visit: Yes Status: Acute Assessment and plan: We will encourage patient to keep wearing CPAP mask. He will require polysomnogram after discharge. - Subjective Interval history: Patient is without complaint, at this time. He denies problems with bowels or bladder. He is somewhat disoriented about his mask. Nursing states that he wore CPAP only 40 minutes, last night. Patient has no complaint of chest discomfort, dyspnea, orthopnea, palpitations, nausea or vomiting, constipation or diarrhea, other changes in bowel habits, difficulty with urination, rash or itching, or other new complaints, except as mentioned above. Review of systems is otherwise negative. I discussed management of her care with nursing staff. Nursing had noted that he frequently takes off his CPAP mask, at night. - Constitutional Vitals: Temp Pulse Resp BP Pulse Ox 97.6 F 60 14 164/90 93 09/06/18 07:09 09/06/18 07:09 09/06/18 07:09 09/06/18 07:09 09/06/18 07:09 Exam: Examination: (Except as mentioned above): General: In no apparent distress. Alert and oriented 3. Nondiaphoretic. Head: Atraumatic and normocephalic. Respiratory: No use of accessory muscles. Lungs are clear throughout. Normal airflow. Cardiovascular: Regular rate and rhythm without murmur appreciated. Abdomen: Bowel sounds are normal. No hepatosplenomegaly mass or tenderness appreciated. Obese and therefore difficult to palpate deeply. Patient is examined upright in chair and this also limits exam. Extremities: No cyanosis clubbing or edema. Skin: Warm and non-diaphoretic with no new lesions noted. Internal Medicine: Result - Labs CBC & Chem 7: 09/06/18 06:05 09/06/18 06:05 Labs: Short CBC 09/06/18 Range/Units 06:05 WBC 5.1 (4.3-11.1) K/mcL Hgb 10.3 L D (12.9-16.9) g/dL Hct 31.5 L (37.5-50.1) % Plt Count 172 (140-400) K/mcL Neutrophils # 3.5 (1.6-8.9) K/mcL BMP 09/06/18 06:05 Sodium 137 Potassium 3.3 L Chloride 106 Carbon Dioxide 27 BUN 14 Creatinine 0.77 Glucose 106 H Calcium 8.3 L - ABG Interpretation ABG results: ABG ABG pH 7.43 pH Units (7.32-7.45) 08/18/18 10:39 ABG pCO2 30 mmHg (35-45) L 08/18/18 10:39 ABG pO2 78 mmHg (85-104) L 08/18/18 10:39 ABG O2 Saturation 96 % (95-98) 08/18/18 10:39 PT/INR, D-dimer PT 12.7 Seconds (9.4-12.1) H 08/11/18 05:35 Consult Discharge Plan - Plan Referrals: Margo Oliveira CNP [Primary Care Provider] - Ahsan Farris MD [Partnered Physician] - 09/14/18 11:30 am
[2018-09-07] MEDS: *HR* Enoxaparin 40 MG/0.4 ML SYRINGE SQ SCH (05:20)
[2018-09-07] MEDS: Acetaminophen 325 MG TABLET PO PRN (10:19)
[2018-09-07] MEDS: cloNIDine HCl 0.1 MG TABLET PO PRN (10:19)
[2018-09-07] MEDS: Cholecalciferol (D-3) 1,000 UNIT (25MCG) TABLET PO SCH (10:19)
[2018-09-07] MEDS: Aspirin 81 MG TAB.CHEW PO SCH (10:20)
--- NOTE | 2018-09-07 11:34 | Internal Med Progress Note ---
Date of Encounter: 09/07/18 Time of Encounter: 11:32 - Assessment and plan (1) Acute right MCA stroke Current Visit: Yes Status: Acute Assessment and plan: No acute neurological deficits noted on exam. Patient continues with left hemiplegia and left neglect. He also noted to continue to have slight expressive aphasia with word searching during answers, but his sentence structure has improved over the past week. He continues to show signs of receptive aphasia, with improved response to visual cueing. Will continue with current therapy, which patient reportedly has been an improvement. We will continue with speech therapy (2) Chronic kidney disease Current Visit: Yes Status: Chronic Assessment and plan: No acute issues. Patient's most recent labs show creatinine 0.77. We will continue to monitor renal status to serial labs and continue with present medications Qualifiers: Chronic kidney disease stage: unspecified stage Qualified Code(s): N18.9 - Chronic kidney disease, unspecified (3) Hypertension Current Visit: Yes Status: Chronic Assessment and plan: Patient's blood pressure as of recently has been slightly elevated systolic with multiple readings between 150 and 170. Patient receiving when necessary clonidine. We will review patient's medications. Qualifiers: Hypertension type: essential hypertension Qualified Code(s): I10 - Essential (primary) hypertension (4) Dementia Current Visit: Yes Status: Chronic Assessment and plan: Patient continues to have some confusion, especially at night where he reportedly keeps removing his CPAP mask. Patient noted to continue to require reinforcement per nursing for ADLs and therapy. No behavior issues reported Qualifiers: Dementia type: unspecified type Dementia behavioral disturbance: without behavioral disturbance Qualified Code(s): F03.90 - Unspecified dementia without behavioral disturbance (5) Coronary artery disease Current Visit: Yes Status: Chronic Assessment and plan: Patient has had several incidents of chest discomforts and near syncopal type episodes during earlier weeks. No current issues over the past 24 hours reported. We will continue to monitor closely. Patient's vital signs stable. Qualifiers: Coronary Disease-Associated Artery/Lesion type: [place] artery [place] vs. transplanted heart: [place] heart Associated angina: without angina Qualified Code(s): I25.10 - Atherosclerotic heart disease of [place] coronary artery without angina pectoris - Time Spent With Patient less than 15 minutes - Subjective Interval history: Patient appears relaxed and currently denies any discomforts or shortness of breath. Patient continues with some hesitation with answering questions but noted to have had an improvement of the complexity of his sentences. Nurse reports patient continues to wear her CPAP for only short periods of time at night, but did not wear his CPAP for approximately 2 hours last evening. Patient continues to require reinforcement and cueing during ADLs and therapy - Constitutional Vitals: Temp Pulse Resp BP Pulse Ox 98.2 F 73 18 179/100 94 09/07/18 07:30 09/07/18 07:30 09/07/18 07:30 09/07/18 07:30 09/07/18 07:30 General appearance: Present: cooperative, A&O X 2, morbidly obese, pleasant, no acute distress, answers questions appropriately - Head Head exam: Present: atraumatic, normocephalic - Eye Eye exam: Present: PERRL, conjuntiva pink, sclera anicteric Pupils: Present: PERRL - Neck Neck exam general surgery: Present: supple, trachea midline. Absent: lymphadenopathy - Respiratory Respiratory exam: Present: CTAB. Absent: accessory muscle use, rales, rhonchi, wheezes - Cardiovascular Cardiovascular exam: Present: RRR, +S1, +S2. Absent: diastolic murmur, gallop, rubs, systolic murmur - GI/Abdominal GI/Abdominal exam: Present: normal bowel sounds, soft, no peritoneal signs. A bsent: distended, tenderness - Extremities Exam Extremities exam: Present: warm, radial pulses palpable and symmetrical. Absent: calf tenderness, cyanotic, pedal edema - Neurological Exam Neurological exam: Present: CN II-XII intact, facial droop. Absent: pronater drift, speech deficit Additional comments: Patient continues with slight right facial droop. Agents expressive aphasia has improved with his construction being complexed while answering questions. Continues with left neglect. Continues with left hemiplegia - Skin Skin exam: Present: dry, intact Internal Medicine: Result - Labs CBC & Chem 7: 09/06/18 06:05 09/06/18 06:05 - ABG Interpretation ABG results: ABG ABG pH 7.43 pH Units (7.32-7.45) 08/18/18 10:39 ABG pCO2 30 mmHg (35-45) L 08/18/18 10:39 ABG pO2 78 mmHg (85-104) L 08/18/18 10:39 ABG O2 Saturation 96 % (95-98) 08/18/18 10:39 PT/INR, D-dimer PT 12.7 Seconds (9.4-12.1) H 08/11/18 05:35 Consult Discharge Plan - Plan Referrals: Margo Oliveira CNP [Primary Care Provider] - Ahsan Farris MD [Partnered Physician] - 09/14/18 11:30 am
[2018-09-08] MEDS: *HR* Enoxaparin 40 MG/0.4 ML SYRINGE SQ SCH (05:29)
[2018-09-08] MEDS: Aspirin 81 MG TAB.CHEW PO SCH (07:53)
[2018-09-08] MEDS: cloNIDine HCl 0.1 MG TABLET PO PRN (07:53)
[2018-09-08] MEDS: Cholecalciferol (D-3) 1,000 UNIT (25MCG) TABLET PO SCH (07:53)
[2018-09-08 13:39] LABS: BUN/Creatinine Ratio 22 (6-26); Blood Urea Nitrogen 18 mg/dL (8-23); Calcium 9.1 mg/dL (8.6-10.3); Carbon Dioxide 26 mEq/L (23-29); Chloride 106 mEq/L (98-107); Glucose 139 mg/dL (70-105); Magnesium 1.9 mg/dL (1.6-2.6); Osmolality,Calculated 284 (280-300); Potassium 3.9 mEq/L (3.5-5.1); Sodium 135 mEq/L (136-145); eGFR For African Americans > 60 (> 60); eGFR For Non-African Americans > 60 (> 60)
--- NOTE | 2018-09-08 14:33 | Internal Med Progress Note ---
Date of Encounter: 09/08/18 Time of Encounter: 14:31 - Assessment and plan (1) Acute right MCA stroke Current Visit: Yes Status: Acute Assessment and plan: Continue PT and OT and ST. Will follow progress. No new neurological deficits at this time. Follow up with neurology as scheduled. Has left hemiparesis, visual cut, dysphagia and agnosia, and receptive aphasia. Will start to plan a family meeting with family education for discharge plan. (2) Hypertension Current Visit: Yes Status: Chronic Assessment and plan: Controlled with current medication. Monitor blood pressure. Qualifiers: Hypertension type: essential hypertension Qualified Code(s): I10 - Essential (primary) hypertension (3) Dementia Current Visit: Yes Status: Chronic Assessment and plan: Progressive disease. Continue supportive care. Increased risk for follows, dehydration, malnutrition, skin breakdown and pneumonia Qualifiers: Dementia type: unspecified type Dementia behavioral disturbance: without behavioral disturbance Qualified Code(s): F03.90 - Unspecified dementia without behavioral disturbance (4) Chronic kidney disease Current Visit: Yes Status: Chronic Assessment and plan: Stable. Follow labs. Avoid nephrotoxic agents. Qualifiers: Chronic kidney disease stage: unspecified stage Qualified Code(s): N18.9 - Chronic kidney disease, unspecified (5) Dysphagia Current Visit: Yes Status: Acute Assessment and plan: Continue mechanical altered diet with thin liquids. Up for meals with supervision. Monitor for pocketing and left cheek. Encourage to chew on right side. Oral care after all meals. Continue speech therapy. Will follow progress. Qualifiers: Dysphagia type: unspecified Qualified Code(s): R13.10 - Dysphagia, unspecified - Time Spent With Patient less than 15 minutes - Subjective Interval history: Participating with therapy. sitting in [facility], Denies any complaints at this time. Max assist times 2 to transfer from bed to wheelchair. Maintaining appetite. No new neurological deficits at this time. low grade fever this am. will monitor. Blood pressure elevated this morning to 212/100. Medications given and repeat chest was 140's/70s. - Constitutional Vitals: Temp Pulse Resp BP Pulse Ox 97.7 F 84 18 212/100 98 09/08/18 07:29 09/08/18 07:29 09/08/18 07:29 09/08/18 07:29 09/08/18 07:29 General appearance: Present: cooperative, A&O X 2, morbidly obese, pleasant, no acute distress, answers questions appropriately Exam: Left facial droop and facial weakness. - Head Head exam: Present: atraumatic, normocephalic - Eye Eye exam: Present: PERRL, conjuntiva pink, sclera anicteric Pupils: Present: PERRL - Neck Neck exam general surgery: Present: supple, trachea midline. Absent: lymphadenopathy - Respiratory Respiratory exam: Present: CTAB. Absent: accessory muscle use, rales, rhonchi, wheezes - Cardiovascular Cardiovascular exam: Present: RRR, +S1, +S2. Absent: diastolic murmur, gallop, rubs, systolic murmur - GI/Abdominal GI/Abdominal exam: Present: normal bowel sounds, soft, no peritoneal signs. Absent: distended, tenderness - Extremities Exam Extremities exam: Present: warm, radial pulses palpable and symmetrical. Absent: calf tenderness, cyanotic, pedal edema Additional comments: Left hemiparesis - Neurological Exam Neurological exam: Present: CN II-XII intact, oriented X3, no focal deficits. Absent: pronater drift, facial droop, speech deficit - Skin Skin exam: Present: dry, intact Internal Medicine: Result - Labs CBC & Chem 7: 09/06/18 06:05 09/08/18 13:01 Labs: BMP 09/08/18 13:01 Sodium 135 L Potassium 3.9 Chloride 106 Carbon Dioxide 26 BUN 18 Creatinine 0.83 Glucose 139 H Calcium 9.1 - ABG Interpretation ABG results: ABG ABG pH 7.43 pH Units (7.32-7.45) 08/18/18 10:39 ABG pCO2 30 mmHg (35-45) L 08/18/18 10:39 ABG pO2 78 mmHg (85-104) L 08/18/18 10:39 ABG O2 Saturation 96 % (95-98) 08/18/18 10:39 PT/INR, D-dimer PT 12.7 Seconds (9.4-12.1) H 08/11/18 05:35 Consult Discharge Plan - Plan Referrals: Margo Oliveira, WORK COUNSELOR [Primary Care Provider] - Ahsan Farris MD [Partnered Physician] - 09/14/18 11:30 am
--- NOTE | 2018-09-08 16:17 | Rehab Psychology Progress Note ---
Date of Encounter: 09/08/18 Time of Encounter: 02:00 Subjective - Patient Report Patient Report: Stated sleep good. - Symptoms Symptoms: Flat affect. Delayed responses and disoriented. Answers only spoken to majority if time today. Objective - WHODAS Functional Impairment Concentration, Problem-solving, Communication: Severe Social Functioning: Moderate - Comments Functional Status Comments: Eye contact improved and up in his chair. Disoriented to day, time. - Mental Status Mental Status Changes: Able to start alphabet A-K. Knew pres. Assessment and Plan - Response to Treatment Response to Treatment: Improved - Prognosis Prognosis: Fair - Treatment Plan Treatment Plan Recommendations: Continue Current Plan/Goals Treatment Frequency: weekly Next Session Date: 09/15/18 Procedures - Intervention Interventions: Cognitive/Behavioral Therapy - Modality Modality: Psychotherapy 30 minutes - Participants Therapy Participant: Patient - Session Time Session Start Time: 02:00 Session Stop Time: 02:30
[2018-09-08] MEDS: Acetaminophen 325 MG TABLET PO PRN (20:05)
[2018-09-09] MEDS: *HR* Enoxaparin 40 MG/0.4 ML SYRINGE SQ SCH (04:57)
[2018-09-09] MEDS: Aspirin 81 MG TAB.CHEW PO SCH (08:47)
[2018-09-09] MEDS: Cholecalciferol (D-3) 1,000 UNIT (25MCG) TABLET PO SCH (08:47)
--- NOTE | 2018-09-09 10:25 | Internal Med Progress Note ---
Date of Encounter: 09/09/18 Time of Encounter: 10:23 - Assessment and plan (1) Acute right MCA stroke Current Visit: Yes Status: Acute Assessment and plan: No acute neurological deficits noted on exam. Patient continues with left hemiplegia and left neglect. He also noted to continue to have slight expressive aphasia with word searching during answers, but his sentence structure has improved over the past week. He continues to show signs of receptive aphasia, with improved response to visual cueing. Will continue with current therapy, which patient reportedly has been an improvement. We will continue with speech therapy (2) Chronic kidney disease Current Visit: Yes Status: Chronic Assessment and plan: No acute issues. Patient's most recent labs show creatinine 0.83. We will continue to monitor renal status to serial labs and continue with present medications Qualifiers: Chronic kidney disease stage: unspecified stage Qualified Code(s): N18.9 - Chronic kidney disease, unspecified (3) Hypertension Current Visit: Yes Status: Chronic Assessment and plan: Patient's blood pressure continues to be slightly elevated systolic with multiple readings between 150 and 170. Patient receiving when necessary clonidine. We will review patient's medications. We will increase patient's Zestril to 20 mg daily Qualifiers: Hypertension type: essential hypertension Qualified Code(s): I10 - Essential (primary) hypertension (4) Dementia Current Visit: Yes Status: Chronic Assessment and plan: Patient continues to have some confusion, especially at night where he reportedly keeps removing his CPAP mask. Patient noted to continue to require reinforcement per nursing for ADLs and therapy. No behavior issues reported Qualifiers: Dementia type: unspecified type Dementia behavioral disturbance: without behavioral disturbance Qualified Code(s): F03.90 - Unspecified dementia without behavioral disturbance (5) Coronary artery disease Current Visit: Yes Status: Chronic Assessment and plan: Patient has had several incidents of chest discomforts and near syncopal type episodes during earlier weeks. No current issues over the past several days reported. We will continue to monitor closely. Patient's vital signs stable. Qualifiers: Coronary Disease-Associated Artery/Lesion type: [place] artery [place] vs. transplanted heart: [place] heart Associated angina: without angina Qualified Code(s): I25.10 - Atherosclerotic heart disease of [place] coronary artery without angina pectoris - Time Spent With Patient less than 15 minutes - Subjective Interval history: Patient appears relaxed and currently denies any discomforts or shortness of breath. Patient continues with some hesitation with answering questions but noted to have had an improvement of the complexity of his sentences. Nurse reports patient continues to wear her CPAP for only short periods of time at night, but did not wear his CPAP for approximately 2 hours last evening. Patient continues to require reinforcement and cueing during ADLs and therapy - Constitutional Vitals: Temp Pulse Resp BP Pulse Ox 97.5 F L 71 17 178/94 97 09/09/18 07:00 09/09/18 07:00 09/09/18 07:00 09/09/18 07:00 09/09/18 07:00 General appearance: Present: cooperative, A&O X 2, morbidly obese, pleasant, no acute distress, answers questions appropriately Exam: Patient continues to have difficulty with orientation to time. Patient's conversation has improved with more complete complex sentencing with his answers to questions. - Head Head exam: Present: atraumatic, normocephalic - Eye Eye exam: Present: PERRL, conjuntiva pink, sclera anicteric Pupils: Present: PERRL - Neck Neck exam general surgery: Present: supple, trachea midline. Absent: lymphadenopathy - Respiratory Respiratory exam: Present: decreased breath sounds, CTAB. Absent: accessory muscle use, rales, rhonchi, wheezes - Cardiovascular Cardiovascular exam: Present: RRR, +S1, +S2. Absent: diastolic murmur, gallop, rubs, systolic murmur - GI/Abdominal GI/Abdominal exam: Present: normal bowel sounds, soft, no peritoneal signs. Absent: distended, tenderness - Extremities Exam Extremities exam: Present: warm, radial pulses palpable and symmetrical. Absent: calf tenderness, cyanotic, pedal edema - Neurological Exam Neurological exam: Present: CN II-XII intact. Absent: pronater drift, facial droop, speech deficit Additional comments: Patient continues to have slight right facial droop and dysarthria. Patient continues with left hemiplegia and noted continued left neglect. - Skin Skin exam: Present: dry, intact Internal Medicine: Result - Labs CBC & Chem 7: 09/06/18 06:05 09/08/18 13:01 Labs: BMP 09/08/18 13:01 Sodium 135 L Potassium 3.9 Chloride 106 Carbon Dioxide 26 BUN 18 Creatinine 0.83 Glucose 139 H Calcium 9.1 - ABG Interpretation ABG results: ABG ABG pH 7.43 pH Units (7.32-7.45) 08/18/18 10:39 ABG pCO2 30 mmHg (35-45) L 08/18/18 10:39 ABG pO2 78 mmHg (85-104) L 08/18/18 10:39 ABG O2 Saturation 96 % (95-98) 08/18/18 10:39 PT/INR, D-dimer PT 12.7 Seconds (9.4-12.1) H 08/11/18 05:35 Consult Discharge Plan - Plan Referrals: Margo Oliveira, RAJAN [Primary Care Provider] - Ahsan Farris MD [Partnered Physician] - 09/14/18 11:30 am
[2018-09-10] MEDS: *HR* Enoxaparin 40 MG/0.4 ML SYRINGE SQ SCH (05:03)
[2018-09-10] MEDS: Lisinopril 20 MG TABLET PO SCH (08:53)
[2018-09-10] MEDS: cloNIDine HCl 0.1 MG TABLET PO PRN (08:53)
[2018-09-10] MEDS: Cholecalciferol (D-3) 1,000 UNIT (25MCG) TABLET PO SCH (08:53)
[2018-09-10] MEDS: Aspirin 81 MG TAB.CHEW PO SCH (08:53)
--- NOTE | 2018-09-10 09:58 | Internal Med Progress Note ---
Date of Encounter: 09/10/18 Time of Encounter: 09:55 - Assessment and plan (1) Acute right MCA stroke Current Visit: Yes Status: Acute Assessment and plan: Continue PT and OT and ST. Will follow progress. No new neurological deficits at this time. Follow up with neurology as scheduled. Has left hemiparesis, visual cut, dysphagia and agnosia, and receptive aphasia. Will start to plan a family meeting with family education for discharge plan. (2) Hypertension Current Visit: Yes Status: Chronic Assessment and plan: Controlled with current medication. Monitor blood pressure. Qualifiers: Hypertension type: essential hypertension Qualified Code(s): I10 - Essential (primary) hypertension (3) Dementia Current Visit: Yes Status: Chronic Assessment and plan: Progressive disease. Continue supportive care. Increased risk for follows, dehydration, malnutrition, skin breakdown and pneumonia Qualifiers: Dementia type: unspecified type Dementia behavioral disturbance: without behavioral disturbance Qualified Code(s): F03.90 - Unspecified dementia without behavioral disturbance (4) Chronic kidney disease Current Visit: Yes Status: Chronic Assessment and plan: Stable. Follow labs. Avoid nephrotoxic agents. Qualifiers: Chronic kidney disease stage: unspecified stage Qualified Code(s): N18.9 - Chronic kidney disease, unspecified (5) Dysphagia Current Visit: Yes Status: Acute Assessment and plan: Continue mechanical altered diet with thin liquids. Up for meals with supervision. Monitor for pocketing and left cheek. Encourage to chew on right side. Oral care after all meals. Continue speech therapy. Will follow progress. Qualifiers: Dysphagia type: unspecified Qualified Code(s): R13.10 - Dysphagia, unspecified - Time Spent With Patient less than 15 minutes - Subjective Interval history: Participating with therapy. sitting in [facility], Denies any complaints at this time. Max assist times 2 to transfer from bed to wheelchair. Has not been making much progress with therapy. Continues to fatigue easily. Family meeting schedule today at 1 PM. Maintaining appetite. No new neurological deficits at this time. - Constitutional Vitals: Temp Pulse Resp BP Pulse Ox 97.9 F 59 16 182/94 98 09/10/18 06:57 09/10/18 06:57 09/10/18 06:57 09/10/18 06:57 09/10/18 06:57 General appearance: Present: cooperative, A&O X 2, morbidly obese, pleasant, no acute distress, answers questions appropriately Exam: Right-sided facial droop, right-sided weakness, hard of hearing with hearing ai ds. - Head Head exam: Present: atraumatic, normocephalic - Eye Eye exam: Present: PERRL, conjuntiva pink, sclera anicteric Pupils: Present: PERRL - Neck Neck exam general surgery: Present: supple, trachea midline. Absent: lymphadenopathy - Respiratory Respiratory exam: Present: CTAB. Absent: accessory muscle use, rales, rhonchi, wheezes - Cardiovascular Cardiovascular exam: Present: RRR, +S1, +S2. Absent: diastolic murmur, gallop, rubs, systolic murmur - GI/Abdominal GI/Abdominal exam: Present: normal bowel sounds, soft, no peritoneal signs. Absent: distended, tenderness - Extremities Exam Extremities exam: Present: warm, radial pulses palpable and symmetrical. Absent: calf tenderness, cyanotic, pedal edema Additional comments: Left-sided weakness - Neurological Exam Neurological exam: Present: CN II-XII intact, oriented X3, no focal deficits. Absent: pronater drift, facial droop, speech deficit - Skin Skin exam: Present: dry, intact Internal Medicine: Result - Labs CBC & Chem 7: 09/06/18 06:05 09/08/18 13:01 - ABG Interpretation ABG results: ABG ABG pH 7.43 pH Units (7.32-7.45) 08/18/18 10:39 ABG pCO2 30 mmHg (35-45) L 08/18/18 10:39 ABG pO2 78 mmHg (85-104) L 08/18/18 10:39 ABG O2 Saturation 96 % (95-98) 08/18/18 10:39 PT/INR, D-dimer PT 12.7 Seconds (9.4-12.1) H 08/11/18 05:35 Consult Discharge Plan - Plan Referrals: Margo Oliveira, RAJAN [Primary Care Provider] - Ahsan Farris MD [Partnered Physician] - 09/14/18 11:30 am
[2018-09-11] MEDS: *HR* Enoxaparin 40 MG/0.4 ML SYRINGE SQ SCH (04:52)
[2018-09-11] MEDS: Acetaminophen 325 MG TABLET PO PRN (04:52)
[2018-09-11] MEDS: Aspirin 81 MG TAB.CHEW PO SCH (10:44)
[2018-09-11] MEDS: Cholecalciferol (D-3) 1,000 UNIT (25MCG) TABLET PO SCH (10:44)
[2018-09-11] MEDS: Lisinopril 20 MG TABLET PO SCH (10:44)
--- NOTE | 2018-09-11 15:40 | Internal Med Progress Note ---
Date of Encounter: 09/11/18 Time of Encounter: 02:50 - Subjective Interval history: - Assessment and plan (1) Acute right MCA stroke Current Visit: Yes Status: Acute Assessment and plan: Continue PT and OT and ST. Will follow progress. No new neurological deficits at this time. Follow up with neurology as scheduled. Has severe left hemiparesis with some neglect, visual cut, dysphagia and agnosia, and receptive aphasia. Had appearance of partial seizure episodes that have gone away on Keppra. FAmily aware. Will continue Keppra for now and he will follow up with neurology. (2) Hypertension Current Visit: Yes Status: Chronic Assessment and plan: Controlled with current medication. Monitor blood pressure. Qualifiers: Hypertension type: essential hypertension Qualified Code(s): I10 - Essential (primary) hypertension (3) Dementia Current Visit: Yes Status: Chronic Assessment and plan: Progressive disease. Continue supportive care. Increased risk for follows, dehydration, malnutrition, skin breakdown and pneumonia Qualifiers: Dementia type: unspecified type Dementia behavioral disturbance: with behavioral disturbance Qualified Code(s): F03.91 - Unspecified dementia with behavioral disturbance (4) Chronic kidney disease Current Visit: Yes Status: Chronic Assessment and plan: Stable. Follow labs. Avoid nephrotoxic agents. Qualifiers: Chronic kidney disease stage: unspecified stage Qualified Code(s): N18.9 - Chronic kidney disease, unspecified (5) Dysphagia Current Visit: Yes Status: Acute Assessment and plan: Continue mechanical altered diet with thin liquids. Up for meals with supervision. Monitor for pocketing and left cheek. Encourage to chew on right side. Oral care after all meals. Continue speech therapy. Will follow progress. Qualifiers: Dysphagia type: unspecified Qualified Code(s): R13.10 - Dysphagia, unspecified - Time Spent With Patient less than 15 minutes - Subjective Interval history: Participating but appears more depressed today. Continues to make very slow improvement. Fatigues easily. He did a lot in therapy today. He did have a visit from his dog Ritika During visit he was noted to be more interactive and smile. He appears to be somewhat depressed at other times. He has been on zoloft for this. He overall has slow swallowing he needs assist most of time with eating. Not clear if he will be able to maintain nutrition / hydration on his own. long-term he may improve or if not he may be candidate for PEG tube. Will change zoloft to duloxitine to see if improvement in mood improves his PO intake. Still with dysphagia. Max assist times 2 to transfer from bed to wheelchair. Needs reminders to swallow. With help he ate well this am but now for lunch he is not eating much. Still getting IV fluids at night times. He is incontinant so difficult to assess output. Continues to pocket food on left side. No new neurological deficits at this time. - EXAM General appearance: Present: WM alert but at times he becomes easily fatigued but overall cooperative, A&O X 2, pleasant, no acute distress, answers questions appropriately, is slow overall in movements and responsiveness - Head Head exam: Present: atraumatic, normocephalic - Eye Eye exam: Present: PERRL, conjuntiva pink, sclera anicteric Pupils: Present: PERRL - Neck Neck exam general surgery: Present: supple, trachea midline. Absent: lymphadenopathy - Respiratory Respiratory exam: Present: CTAB. Absent: accessory muscle use, rales, rhonchi, wheezes - Cardiovascular Cardiovascular exam: Present: RRR, +S1, +S2. Absent: diastolic murmur, gallop, rubs, systolic murmur - GI/Abdominal GI/Abdominal exam: Present: normal bowel sounds, soft, no peritoneal signs. Absent: distended, tenderness - Extremities Exam Extremities exam: Present: warm, radial pulses palpable and symmetrical. Absent: calf tenderness, cyanotic, pedal edema Additional comments: left hemiplegia - Neurological Exam Neurological exam: he has some unilateral neglect left side - Skin Skin exam: Present: dry, intact - Assessment and plan (1) Acute right MCA stroke Current Visit: Yes Status: Acute Assessment and plan: Continue PT and OT and ST. Will follow progress. No new neurological deficits at this time. Follow up with neurology as scheduled. Has left hemiparesis, visual cut, dysphagia and agnosia, and receptive aphasia. Will start to plan a family meeting with family education for discharge plan. (2) Hypertension Current Visit: Yes Status: Chronic Assessment and plan: Controlled with current medication. Monitor blood pressure. Qualifiers: Hypertension type: essential hypertension Qualified Code(s): I10 - Essential (primary) hypertension (3) Dementia Current Visit: Yes Status: Chronic Assessment and plan: Progressive disease. Continue supportive care. Increased risk for follows, dehydration, malnutrition, skin breakdown and pneumonia Qualifiers: Dementia type: unspecified type Dementia behavioral disturbance: without behavioral disturbance Qualified Code(s): F03.90 - Unspecified dementia without behavioral disturbance (4) Chronic kidney disease Current Visit: Yes Status: Chronic Assessment and plan: Stable. Follow labs. Avoid nephrotoxic agents. Qualifiers: Chronic kidney disease stage: unspecified stage Qualified Code(s): N18.9 - Chronic kidney disease, unspecified (5) Dysphagia Current Visit: Yes Status: Acute Assessment and plan: Continue mechanical altered diet with thin liquids. Up for meals with supervision. Monitor for pocketing and left cheek. Encourage to chew on right side. Oral care after all meals. Continue speech therapy. Will follow progress. Qualifiers: Dysphagia type: unspecified Qualified Code(s): R13.10 - Dysphagia, unspecified - Time Spent With Patient less than 15 minutes - Subjective Interval history: Participating with therapy. sitting in [facility], Denies any complaints at this time. Max assist times 2 to transfer from bed to wheelchair. Has not been making much progress with therapy. Continues to fatigue easily. Family meeting schedule today at 1 PM. Maintaining appetite. No new neurological deficits at this time. - Constitutional Vitals: Temp Pulse Resp BP Pulse Ox 97.9 F 59 16 182/94 98 09/10/18 06:57 09/10/18 06:57 09/10/18 06:57 09/10/18 06:57 09/10/18 06:57 General appearance: Present: cooperative, A&O X 2, morbidly obese, pleasant, no acute distress, answers questions appropriately Exam: Right-sided facial droop, right-sided weakness, hard of hearing with hearing aids. - Head Head exam: Present: atraumatic, normocephalic - Eye Eye exam: Present: PERRL, conjuntiva pink, sclera anicteric Pupils: Present: PERRL - Neck Neck exam general surgery: Present: supple, trachea midline. Absent: lymphadenopathy - Respiratory Respiratory exam: Present: CTAB. Absent: accessory muscle use, rales, rhonchi, wheezes - Cardiovascular Cardiovascular exam: Present: RRR, +S1, +S2. Absent: diastolic murmur, gallop, rubs, systolic murmur - GI/Abdominal GI/Abdominal exam: Present: normal bowel sounds, soft, no peritoneal signs. Absent: distended, tenderness - Extremities Exam Extremities exam: Present: warm, radial pulses palpable and symmetrical. Absent: calf tenderness, cyanotic, pedal edema Additional comments: Left-sided weakness - Neurological Exam Neurological exam: Present: CN II-XII intact, oriented X3, no focal deficits. Absent: pronater drift, facial droop, speech deficit - Skin Skin exam: Present: dry, intact - Constitutional Vitals: Temp Pulse Resp BP Pulse Ox 97.9 F 72 15 126/81 98 09/11/18 11:45 09/11/18 11:45 09/11/18 09:08 09/11/18 11:45 09/11/18 11:45 General appearance: Present: cooperative, A&O X 2, morbidly obese, pleasant, no acute distress, answers questions appropriately Internal Medicine: Result - Labs CBC & Chem 7: 09/06/18 06:05 09/08/18 13:01 - ABG Interpretation ABG results: ABG ABG pH 7.43 pH Units (7.32-7.45) 08/18/18 10:39 ABG pCO2 30 mmHg (35-45) L 08/18/18 10:39 ABG pO2 78 mmHg (85-104) L 08/18/18 10:39 ABG O2 Saturation 96 % (95-98) 08/18/18 10:39 PT/INR, D-dimer PT 12.7 Seconds (9.4-12.1) H 08/11/18 05:35 Consult Discharge Plan - Plan Referrals: Margo Oliveira, [employer] [Primary Care Provider] - Ahsan Farris MD [Partnered Physician] - 09/14/18 11:30 am
[2018-09-12] MEDS: *HR* Enoxaparin 40 MG/0.4 ML SYRINGE SQ SCH (05:16)
[2018-09-12] MEDS: Acetaminophen 325 MG TABLET PO PRN (09:53)
[2018-09-12] MEDS: Aspirin 81 MG TAB.CHEW PO SCH (09:54)
[2018-09-12] MEDS: Lisinopril 20 MG TABLET PO SCH (09:54)
[2018-09-12] MEDS: Cholecalciferol (D-3) 1,000 UNIT (25MCG) TABLET PO SCH (09:54)
--- NOTE | 2018-09-12 18:50 | Internal Med Progress Note ---
Date of Encounter: 09/12/18 Time of Encounter: 16:50 - Subjective Interval history: - Assessment and plan (1) Acute right MCA stroke Current Visit: Yes Status: Acute Assessment and plan: Continue PT and OT and ST. Will follow progress. No new neurological deficits at this time. Follow up with neurology as scheduled. Has severe left hemiparesis with some neglect, visual cut, dysphagia and agnosia, and receptive aphasia. Had appearance of partial seizure episodes that have gone away on Keppra. FAmily aware. Will continue Keppra for now and he will follow up with neurology. (2) Hypertension Current Visit: Yes Status: Chronic Assessment and plan: Controlled with current medication. Monitor blood pressure. Qualifiers: Hypertension type: essential hypertension Qualified Code(s): I10 - Essential (primary) hypertension (3) Dementia Current Visit: Yes Status: Chronic Assessment and plan: Progressive disease. Continue supportive care. Increased risk for follows, dehydration, malnutrition, skin breakdown and pneumonia Qualifiers: Dementia type: unspecified type Dementia behavioral disturbance: with behavioral disturbance Qualified Code(s): F03.91 - Unspecified dementia with behavioral disturbance (4) Chronic kidney disease Current Visit: Yes Status: Chronic Assessment and plan: Stable. Follow labs. Avoid nephrotoxic agents. Qualifiers: Chronic kidney disease stage: unspecified stage Qualified Code(s): N18.9 - Chronic kidney disease, unspecified (5) Dysphagia Current Visit: Yes Status: Acute Assessment and plan: Continue mechanical altered diet with thin liquids. Up for meals with supervision. Monitor for pocketing and left cheek. Encourage to chew on right side. Oral care after all meals. Continue speech therapy. Will follow progress. Qualifiers: Dysphagia type: unspecified Qualified Code(s): R13.10 - Dysphagia, unspecified - Time Spent With Patient less than 15 minutes - Subjective Interval history: Mood stable seems to be slowly having more time in day that he interacts He overall has slow swallowing he needs assist most of time with eating. His memory is still impaired He is still needing frequent reminders and assist No new neurological deficits at this time. - EXAM General appearance: Present: WM alert but at times he becomes easily fatigued but overall cooperative, A&O X 2, pleasant, no acute distress, answers questions appropriately, is slow overall in movements a - Head Head exam: Present: atraumatic, normocephalic - Eye Eye exam: Present: PERRL, conjuntiva pink, sclera anicteric Pupils: Present: PERRL - Neck Neck exam general surgery: Present: supple, trachea midline. Absent: lymphad enopathy - Respiratory Respiratory exam: Present: CTAB. Absent: accessory muscle use, rales, rhonchi, wheezes - Cardiovascular Cardiovascular exam: Present: RRR, +S1, +S2. Absent: diastolic murmur, gallop, rubs, systolic murmur - GI/Abdominal GI/Abdominal exam: Present: normal bowel sounds, soft, no peritoneal signs. Absent: distended, tenderness - Extremities Exam Extremities exam: Present: warm, radial pulses palpable and symmetrical. Absent: calf tenderness, cyanotic, pedal edema Additional comments: left hemiplegia - Neurological Exam Neurological exam: he has some unilateral neglect left side - Skin Skin exam: Present: dry, intact - Constitutional Vitals: Temp Pulse Resp BP Pulse Ox 97.5 F L 67 16 165/89 96 09/12/18 07:21 09/12/18 07:21 09/12/18 07:21 09/12/18 07:21 09/12/18 07:21 General appearance: Present: cooperative, A&O X 2, morbidly obese, pleasant, no acute distress, answers questions appropriately Internal Medicine: Result - Labs CBC & Chem 7: 09/06/18 06:05 09/08/18 13:01 - ABG Interpretation ABG results: ABG ABG pH 7.43 pH Units (7.32-7.45) 08/18/18 10:39 ABG pCO2 30 mmHg (35-45) L 08/18/18 10:39 ABG pO2 78 mmHg (85-104) L 08/18/18 10:39 ABG O2 Saturation 96 % (95-98) 08/18/18 10:39 PT/INR, D-dimer PT 12.7 Seconds (9.4-12.1) H 08/11/18 05:35 Consult Discharge Plan - Plan Referrals: Margo Oliveira CNP [Primary Care Provider] - Ahsan Farris MD [Partnered Physician] - 09/14/18 11:30 am
[2018-09-13] MEDS: *HR* Enoxaparin 40 MG/0.4 ML SYRINGE SQ SCH (04:53)
[2018-09-13 06:19] LABS: Basophils % 0.3 %; Eosinophils # 0.2 K/mcL (0.0-0.6); Eosinophils % 3.3 %; Hematocrit 36.3 % (37.5-50.1); Hemoglobin 11.6 g/dL (12.9-16.9); Immature Granulocytes % 0.5 % (0-4); Lymphocytes # 1.1 K/mcL (0.6-4.6); Lymphocytes % 16.4 %; Mean Corpuscular Hemoglobin 27.2 pg (28.0-33.3); Mean Corpuscular Volume 85.2 fL (83.0-100.0); Mean Platelet Volume 9.9 fL (9.4-12.4); Monocytes # 0.6 K/mcL (0.0-1.3); Monocytes % 9.8 %; Neutrophils # 4.5 K/mcL (1.6-8.9); Platelet Count 200 K/mcL (140-400); Red Blood Count 4.26 M/mcL (4.19-5.50); Red Cell Distribution Width 14.3 % (11.5-14.5); Segmented Neutrophils % 69.7 %; White Blood Count 6.5 K/mcL (4.3-11.1)
[2018-09-13 06:51] LABS: BUN/Creatinine Ratio 26 (6-26); Blood Urea Nitrogen 25 mg/dL (8-23); Calcium 8.9 mg/dL (8.6-10.3); Carbon Dioxide 28 mEq/L (23-29); Chloride 103 mEq/L (98-107); Glucose 99 mg/dL (70-105); Osmolality,Calculated 290 (280-300); Potassium 3.8 mEq/L (3.5-5.1); Sodium 138 mEq/L (136-145); eGFR For African Americans > 60 (> 60); eGFR For Non-African Americans > 60 (> 60)
[2018-09-13] MEDS: Aspirin 81 MG TAB.CHEW PO SCH (08:42)
[2018-09-13] MEDS: Cholecalciferol (D-3) 1,000 UNIT (25MCG) TABLET PO SCH (08:42)
[2018-09-13] MEDS: Lisinopril 20 MG TABLET PO SCH (08:42)
--- NOTE | 2018-09-13 11:15 | Internal Med Progress Note ---
Date of Encounter: 09/13/18 Time of Encounter: 11:13 - Assessment and plan (1) Acute right MCA stroke Current Visit: Yes Status: Acute Assessment and plan: Continue PT and OT and ST. Will follow progress. No new neurological deficits at this time. Follow up with neurology as scheduled. Has left hemiparesis, visual cut, dysphagia and agnosia, and receptive aphasia. Will start to plan a family meeting with family education for discharge plan. (2) Hypertension Current Visit: Yes Status: Chronic Assessment and plan: Controlled with current medication. Monitor blood pressure. Qualifiers: Hypertension type: essential hypertension Qualified Code(s): I10 - Essential (primary) hypertension (3) Dementia Current Visit: Yes Status: Chronic Assessment and plan: continue supportive care, progressive disease. Qualifiers: Dementia type: unspecified type Dementia behavioral disturbance: without behavioral disturbance Qualified Code(s): F03.90 - Unspecified dementia without behavioral disturbance (4) Chronic kidney disease Current Visit: Yes Status: Chronic Assessment and plan: Stable. Follow labs. Avoid nephrotoxic agents. Qualifiers: Chronic kidney disease stage: unspecified stage Qualified Code(s): N18.9 - Chronic kidney disease, unspecified (5) Dysphagia Current Visit: Yes Status: Acute Assessment and plan: Continue mechanical altered diet with thin liquids. Up for meals with supervision. Monitor for pocketing and left cheek. Encourage to chew on right side. Oral care after all meals. Continue speech therapy. Will follow progress. Qualifiers: Dysphagia type: unspecified Qualified Code(s): R13.10 - Dysphagia, unspecified - Time Spent With Patient 25 - 35 minutes - Subjective Interval history: Participating with therapy. resting in bed. Denies any complaints at this time. Max assist times 2 to transfer from bed to wheelchair. Has not been making much progress with therapy. Continues to fatigue easily. Maintaining appetite. No new neurological deficits at this time. - Constitutional Vitals: Temp Pulse Resp BP Pulse Ox 98.1 F 71 16 166/97 95 09/13/18 06:56 09/13/18 06:56 09/13/18 06:56 09/13/18 06:56 09/13/18 06:56 General appearance: Present: cooperative, A&O X 2, morbidly obese, pleasant, no acute distress, answers questions appropriately - Head Head exam: Present: atraumatic, normocephalic - Eye Eye exam: Present: PERRL, conjuntiva pink, sclera anicteric Pupils: Present: PERRL - Neck Neck exam general surgery: Present: supple, trachea midline. Absent: lymphadenopathy - Respiratory Respiratory exam: Present: CTAB. Absent: accessory muscle use, rales, rhonchi, wheezes - Cardiovascular Cardiovascular exam: Present: RRR, +S1, +S2. Absent: diastolic murmur, gallop, rubs, systolic murmur - GI/Abdominal GI/Abdominal exam: Present: normal bowel sounds, soft, no peritoneal signs. Absent: distended, tenderness - Extremities Exam Extremities exam: Present: warm, radial pulses palpable and symmetrical. Absent: calf tenderness, cyanotic, pedal edema Additional comments: left hemiplegia. - Neurological Exam Neurological exam: Present: CN II-XII intact, oriented X3, no focal deficits. Absent: pronater drift, facial droop, speech deficit - Skin Skin exam: Present: dry, intact Internal Medicine: Result - Labs CBC & Chem 7: 09/13/18 04:45 09/13/18 04:45 Labs: Short CBC 09/13/18 Range/Units 04:45 WBC 6.5 (4.3-11.1) K/mcL Hgb 11.6 L (12.9-16.9) g/dL Hct 36.3 L (37.5-50.1) % Plt Count 200 (140-400) K/mcL Neutrophils # 4.5 (1.6-8.9) K/mcL BMP 09/13/18 04:45 Sodium 138 Potassium 3.8 Chloride 103 Carbon Dioxide 28 BUN 25 H Creatinine 0.96 Glucose 99 Calcium 8.9 - ABG Interpretation ABG results: ABG ABG pH 7.43 pH Units (7.32-7.45) 08/18/18 10:39 ABG pCO2 30 mmHg (35-45) L 08/18/18 10:39 ABG pO2 78 mmHg (85-104) L 08/18/18 10:39 ABG O2 Saturation 96 % (95-98) 08/18/18 10:39 PT/INR, D-dimer PT 12.7 Seconds (9.4-12.1) H 08/11/18 05:35 Consult Discharge Plan - Plan Referrals: Margo Oliveira, SALES CONTRACT ADMINISTRATOR [Primary Care Provider] - Brenton,Foreman I, MD [Partnered Physician] - 09/14/18 11:30 am
[2018-09-14] MEDS: *HR* Enoxaparin 40 MG/0.4 ML SYRINGE SQ SCH (04:36)
[2018-09-14] MEDS: Lisinopril 20 MG TABLET PO SCH (09:35)
[2018-09-14] MEDS: Aspirin 81 MG TAB.CHEW PO SCH (09:36)
[2018-09-14] MEDS: Cholecalciferol (D-3) 1,000 UNIT (25MCG) TABLET PO SCH (09:36)
--- NOTE | 2018-09-14 12:13 | Internal Med Progress Note ---
Date of Encounter: 09/14/18 Time of Encounter: 12:11 - Assessment and plan (1) Acute right MCA stroke Current Visit: Yes Status: Acute Assessment and plan: No acute neurological deficits noted on exam. Patient continues with left hemiplegia and left neglect. He also noted to continue to have slight expressive aphasia with word searching during answers, but his sentence structure has improved over the past few week. He continues to show signs of receptive aphasia, with improved response to visual cueing. Will continue with current therapy, which patient reportedly has been an improvement. We will continue with speech therapy. Patient being prepared for discharge to residential facility. (2) Chronic kidney disease Current Visit: Yes Status: Chronic Assessment and plan: No acute issues. We will continue to monitor renal status to serial labs and continue with present medications Qualifiers: Chronic kidney disease stage: unspecified stage Qualified Code(s): N18.9 - Chronic kidney disease, unspecified (3) Hypertension Current Visit: Yes Status: Chronic Assessment and plan: Patient's blood pressure continues to be slightly elevated systolic with multiple readings between 150 and 170. Patient receiving when necessary clonidine. We will review patient's medications. Qualifiers: Hypertension type: essential hypertension Qualified Code(s): I10 - Essential (primary) hypertension (4) Dementia Current Visit: Yes Status: Chronic Assessment and plan: Patient continues to have some confusion, especially at night where he reportedly keeps removing his CPAP mask. Patient noted to continue to require reinforcement per nursing for ADLs and therapy. No behavior issues reported Qualifiers: Dementia type: unspecified type Dementia behavioral disturbance: without behavioral disturbance Qualified Code(s): F03.90 - Unspecified dementia without behavioral disturbance (5) Coronary artery disease Current Visit: Yes Status: Chronic Assessment and plan: Patient has had several incidents of chest discomforts and near syncopal type episodes during earlier weeks. No current issues over the past several days reported. We will continue to monitor closely. Patient's vital signs stable. Qualifiers: Coronary Disease-Associated Artery/Lesion type: [place] artery [place] vs. transplanted heart: [place] heart Associated angina: without angina Qualified Code(s): I25.10 - Atherosclerotic heart disease of [place] coronary artery without angina pectoris - Time Spent With Patient less than 15 minutes - Subjective Interval history: Patient appears relaxed and currently denies any discomforts or shortness of breath. Patient continues with some hesitation with answering questions but noted to have had an improvement of the complexity of his sentences. Nurse reports patient continues to wear her CPAP for only short periods of time at night, but frequently removes the mask during the night. Patient continues to require reinforcement and cueing during ADLs and therapy - Constitutional Vitals: Temp Pulse Resp BP Pulse Ox 98.0 F 65 17 159/75 94 09/14/18 11:01 09/14/18 11:01 09/14/18 11:01 09/14/18 11:09/14/18 11:01 General appearance: Present: cooperative, A&O X 2, pleasant, no acute distress Exam: Patient will follow most simple commands correctly but continues to have some receptive issues and is unable to follow complex directions. Patient continues to perform better with visual cueing. Patient continues to remove his mask at night after frequent reinforcement on his need to maintain his CPAP mask. - Head Head exam: Present: atraumatic, normocephalic - Eye Eye exam: Present: PERRL, conjuntiva pink, sclera anicteric Pupils: Present: PERRL - Neck Neck exam general surgery: Present: supple, trachea midline. Absent: lymphadenopathy - Respiratory Respiratory exam: Present: decreased breath sounds, CTAB. Absent: accessory mus yaneth use, rales, rhonchi, wheezes - Cardiovascular Cardiovascular exam: Present: RRR, +S1, +S2. Absent: diastolic murmur, gallop, rubs, systolic murmur - GI/Abdominal GI/Abdominal exam: Present: normal bowel sounds, soft, no peritoneal signs. Absent: distended, tenderness - Extremities Exam Extremities exam: Present: warm, radial pulses palpable and symmetrical. Absent: calf tenderness, cyanotic, pedal edema - Neurological Exam Neurological exam: Present: CN II-XII intact, facial droop. Absent: pronater drift, speech deficit Additional comments: Patient continues with right facial droop. Slight dysarthria. Left neglect noted. Left hemiplegia. Right extremities at 5/5 - Skin Skin exam: Present: dry, intact Internal Medicine: Result - Labs CBC & Chem 7: 09/13/18 04:45 09/13/18 04:45 - ABG Interpretation ABG results: ABG ABG pH 7.43 pH Units (7.32-7.45) 08/18/18 10:39 ABG pCO2 30 mmHg (35-45) L 08/18/18 10:39 ABG pO2 78 mmHg (85-104) L 08/18/18 10:39 ABG O2 Saturation 96 % (95-98) 08/18/18 10:39 PT/INR, D-dimer PT 12.7 Seconds (9.4-12.1) H 08/11/18 05:35 Consult Discharge Plan - Plan Referrals: Margo Oliveira CNP [Primary Care Provider] - Ahsan Farris MD [Partnered Physician] - 09/14/18 11:30 am
[2018-09-15] MEDS: *HR* Enoxaparin 40 MG/0.4 ML SYRINGE SQ SCH (04:51)
[2018-09-15 07:39] VITALS: BP 148/92
[2018-09-15] MEDS: Lisinopril 20 MG TABLET PO SCH (10:06)
[2018-09-15] MEDS: Aspirin 81 MG TAB.CHEW PO SCH (10:06)
[2018-09-15] MEDS: Cholecalciferol (D-3) 1,000 UNIT (25MCG) TABLET PO SCH (10:06)
[2018-09-15] MEDS: Acetaminophen 325 MG TABLET PO PRN (10:06)
--- NOTE | 2018-09-15 11:49 | Rehab Psychology Progress Note ---
Date of Encounter: 09/15/18 Time of Encounter: 09:30 Subjective - Patient Report Patient Report: Stated "not to bad". Tired. - Symptoms Symptoms: Still exhibits confusion. Intermittent eye contact. Flat affect. Objective - WHODAS Functional Impairment Concentration, Problem-solving, Communication: Severe Social Functioning: Moderate - Comments Functional Status Comments: Can follow 2 step commands. Unable to follow through with counting 1-10 without coaxing to sustain attention. Difficulty attending to left side. - Mental Status Mental Status Changes: OX2 - not time. Poor historian and answers are vague/general. Drooling out of left side of mouth. Assessment and Plan - Response to Treatment Response to Treatment: No Change - Prognosis Prognosis: Guarded - Treatment Plan Changes in Treatment Plan Goals: Discharging to F. Procedures - Intervention Interventions: Cognitive/Behavioral Therapy - Modality Modality: Psychotherapy 30 minutes - Participants Therapy Participant: Patient - Session Time Session Start Time: 09:30 Session Stop Time: 10:00
--- NOTE | 2018-09-15 11:52 | Discharge Summary ---
Date of Encounter: 09/15/18 Time of Encounter: 11:49 - Discharge Diagnosis (1) Acute right MCA stroke Priority: Primary Status: Acute Comments: Patient was admitted to this facility from an [facility] after experiencing a right MCA ischemic stroke that resulted in left hemiplegia and left neglect. Patient has also experienced dysphagia with dysarthria. Patient participated in physical therapy and progressed well, but shows no motor improvement for his left hemiplegia. Patient's left neglect has improved somewhat during his stay. No other acute neurological changes were noted during the stay. Patient has had some issues with elevated systolic blood pressure during his stay, but medications were titrated and this was resolved prior to his discharge. Patient is to continue his current medications after discharge and will continue his follow-up with his neurologist and PCP. Patient will continue his physical therapy at the retirement facility that he will be transferring to. (2) Chronic kidney disease Priority: Secondary Status: Chronic Comments: No acute issues during his stay at this facility. Patient's renal status was followed with serial labs. Patient is continue with current medications and follow-up with his PCP Qualifiers: Chronic kidney disease stage: unspecified stage Qualified Code(s): N18.9 - Chronic kidney disease, unspecified (3) Hypertension Priority: Secondary Status: Chronic Comments: Patient's blood pressure has been fairly well-controlled. Patient has had some issues with elevated systolic during the early part of his admission [facility], but titration of medications soon resolved his hypertension. Patient is continue with current medications and follow-up with PCP for further management Qualifiers: Hypertension type: essential hypertension Qualified Code(s): I10 - Essential (primary) hypertension (4) Dementia Priority: Secondary Status: Chronic Comments: No acute issues. Patient required cueing during his physical therapy and was noted to have improved results with visual cueing. Patient also would wear a CPAP at night but would frequently removed the mask even after frequent reinforcement from nursing. No behavior issues were reported. Patient is cooperative during exam and therapy Qualifiers: Dementia type: unspecified type Dementia behavioral disturbance: without behavioral disturbance Qualified Code(s): F03.90 - Unspecified dementia without behavioral disturbance (5) Coronary artery disease Priority: Secondary Status: Chronic Comments: No acute issues during his stay. Patient did have several episodes during the early admission, during which his systolic blood pressure would drop and patient will become very drowsy. Medications titrated and this issue was soon resolved. Patient continues with no complaints of chest discomforts or palpitations. Patient is continue with current medications and follow-up with PCP. Qualifiers: Coronary Disease-Associated Artery/Lesion type: [place] artery [place] vs. transplanted heart: [place] heart Associated angina: without angina Qualified Code(s): I25.10 - Atherosclerotic heart disease of [place] coronary artery without angina pectoris Hospital course: Mr. Golden is a 78 year old male, who was admitted to this facility for rehabilitation following a right MCA ischemic stroke. Patient presented with left hemiplegia and left neglect. Patient also showed right facial droop with dysarthria and dysphagia. Patient also has a history of chronic kidney disease, hypertension and dementia. Patient participated in physical therapy during his stay but has had minimal improvement of his deficits. Patient continues to have left hemiplegia but his left neglect has improved somewhat. Patient's speech and swallow has improved during the stay. Patient's required titration of his blood pressure medications due to both hypotension and hypertension during his stay but currently has been stable and is being discharged on his current medications. Patient is continue follow-up with neurology and his PCP after discharge. Discharge discussed with: patient Time spent discussing smoking cessation with patient: 3 to 10 minutes - Time Spent with Patient Total time spent providing and/or coordinating discharge services: Time spent: Less than 30 minutes - Discharge Medications Prescriptions: No Action Cholecalciferol (D-3) [Vitamin D] 5,000 unit PO DAILY Aspirin 81 mg PO DAILY Sertraline [Zoloft] 50 mg PO DAILY Folic Acid 0.8 mg PO DAILY Memantine [Namenda] 10 mg PO DAILY amLODIPine [Norvasc] 10 mg PO DAILY #60 tablet Lisinopril [Zestril] 20 mg PO DAILY #30 tablet Home Medications: Aspirin 81 mg PO DAILY 04/02/16 [History] Cholecalciferol (D-3) [Vitamin D] 5,000 unit PO DAILY 04/02/16 [History] Folic Acid 0.8 mg PO DAILY 04/02/16 [History] Sertraline [Zoloft] 50 mg PO DAILY 04/02/16 [History] Memantine [Namenda] 10 mg PO DAILY 05/23/17 [History] Lisinopril [Zestril] 20 mg PO DAILY #30 tablet 05/25/17 [Rx] amLODIPine [Norvasc] 10 mg PO DAILY #60 tablet 05/25/17 [Rx] Allergies/Adverse Reactions: Allergy/AdvReac Type Severity Reaction Status Date / Time No Known Allergies Allergy Verified 08/11/18 03:37 Date of admission: 08/11/18 00:15 Primary care physician: Margo Oliveira CNP Consults: 08/11/18 00:38 Consult to Occupational Therapy [CONS] Routine Comment: Evaluate, develop and implement POC Reason for Consult: R-MCA: eval and treat Does patient have active BEDREST order?: No Is patient medically & hemodynamically stable?: Yes Patient assessed for mobility or mobilized this visit?: No Consult to Physical Medicine/Rehab [CONS] Routine Reason for Consult: R-MCA: eval and treat Call Completed: No Consult to Physical Therapy [CONS] Routine Comment: Evaluate, develop and implement POC Reason for Consult: R MCA- eval and treat Does patient have active BEDREST order?: No Is patient medically & hemodynamically stable?: Yes Patient assessed for mobility or mobilized this visit?: No Consult to Recreational Therapy [CONS] Routine Comment: Evaluate, develop and implement POC Consult to [employer] [CONS] Routine Reason for SW Consult: discharge planning, R MCA Consult to Speech Therapy [CONS] Routine Comment: Evaluate, develop and implement POC Reason for Consult: speech impairment Call Completed: Yes 08/14/18 09:18 Consult to Nutrition [CONS] Routine Comment: Consulting Provider: NUTRITION Reason for Dietary Consult: Other Other:: fHypoalbuminemia 08/18/18 07:59 Consult to Psychology [CONS] Routine Consulting Provider: Trinidad Espinal Reason for Consult: cva Call Completed: Yes 09/02/18 11:48 Consult to Neurology [CONS] Routine Consulting Provider: Neu[facility] Reason for Consult: ischemic MCA infarct with right hemiplegia Time Notified: 11:49 Call Completed: No Discharging clinician: Li Mcfadden - Constitutional Vitals: Temp Pulse Resp BP Pulse Ox 97.8 F 76 15 148/92 96 09/15/18 07:38 09/15/18 07:38 09/15/18 07:38 09/15/18 07:38 09/15/18 07:38 General appearance: Present: cooperative, A&O X 2, pleasant, no acute distress - Head Head exam: Present: atraumatic, normocephalic - Eye Eye exam: Present: PERRL, conjuntiva pink, sclera anicteric Pupils: Present: PERRL - Neck Neck exam general surgery: Present: supple, trachea midline. Absent: lymphadenopathy - Respiratory Respiratory exam: Present: CTAB. Absent: accessory muscle use, rales, rhonchi, wheezes - Cardiovascular Cardiovascular exam: Present: RRR, +S1, +S2. Absent: diastolic murmur, gallop, rubs, systolic murmur - GI/Abdominal GI/Abdominal exam: Present: normal bowel sounds, soft, no peritoneal signs. Absent: distended, tenderness - Extremities Exam Extremities exam: Present: warm, radial pulses palpable and symmetrical. Absent: calf tenderness, cyanotic, pedal edema - Neurological Exam Neurological exam: Present: CN II-XII intact, facial droop, speech deficit. Absent: pronater drift Additional comments: Patient continues with right facial droop and dysarthria. Noted confusion with orientation to name and place only and at times patient has inappropriate answers simple questions. Patient continues with left neglect and has left hemiplegia. Right extremities at 5/5 muscle strength. - Skin Skin exam: Present: dry, intact - Patient Status Disposition: Transfer SNF Condition: Good Functional capacity at discharge: wheelchair bound Overall status at discharge: patient is not back to baseline - Discharge Instructions Follow Up With: Margo Oliveira CNP [Primary Care Provider] - Ahsan Farris MD [Partnered Physician] - 09/14/18 11:30 am - Diet and Activity Activity: as per physical therapy
--- NOTE | 2018-09-15 12:39 | Physician Discharge Referral ---
ExtendedCare Referral Info Provider in Charge after Transfer: PCP Institutional Level of Care: Skilled - Diagnosis (1) Acute right MCA stroke Priority: Primary Status: Acute (2) Chronic kidney disease Priority: Secondary Status: Chronic (3) Hypertension Priority: Secondary Status: Chronic (4) Dementia Priority: Secondary Status: Chronic (5) Coronary artery disease Priority: Secondary Status: Chronic - Transfer Medications Home Medications: Aspirin 81 mg PO DAILY 04/02/16 [History] Cholecalciferol (D-3) [Vitamin D] 5,000 unit PO DAILY 04/02/16 [History] Folic Acid 0.8 mg PO DAILY 04/02/16 [History] Sertraline [Zoloft] 50 mg PO DAILY 04/02/16 [History] Memantine [Namenda] 10 mg PO DAILY 05/23/17 [History] Lisinopril [Zestril] 20 mg PO DAILY #30 tablet 05/25/17 [Rx] amLODIPine [Norvasc] 10 mg PO DAILY #60 tablet 05/25/17 [Rx] Allergies/Adverse Reactions: Allergy/AdvReac Type Severity Reaction Status Date / Time No Known Allergies Allergy Verified 08/11/18 03:37 - Respiratory Orders Smoking Cessation: Smoking cessation has been advised. For more information, call the [place] Tobacco Quit Line at 2-934-NPEONOW. - Lab Orders Lab Orders: 2 Step Mantoux Test per State regulation, CBC, U/A, Teddy 17, CXR yearly - Ancillary Orders May use pressure relief devices daily prn, May go on TIAGO w/family/respon democrat w/meds at nurse discretion PRN, May have alcoholic beverages, May consult with Dentist, Gas Well Drilling Manager, Advertising Production Manager PRN - Advance Directives Code Status: DNR-Comfort Care - Mobility Orders Chair - Rehabiliation Orders Rehab Potential: Fair Rehab Orders: ROM Exercises, Evaluation for Physical Therapy, Evaluation for Occupational Therapy, Evaluation for Speech Therapy - Treatments Skin tear care topically daily PRN per policy, May check for fecal impaction rectally daily PRN, Fleet enema rectally every other day PRN cleansing purposes - Diet Orders Pureed House Supplement per Dietary: ensure CERTIFICATION: I certify that the transfer of the above named patient to an Extended Care Facility is necessary for the continuing treatment of the diagnosis listed. The above information is true and accurate reflection of patient's current condition. Confidential - Redisclosure prohibited without a patient's written consent.
== END 2018-09-15 14:10 | DRG 57 ==
LOC: INPGRE 00:15